=== PATIENT | female | born 1970 | race Caucasian/White ===

== ENCOUNTER → 2018-10-23 | Outpatient (CLI) | payer OTHER, SELFPAY ==
[2018-10-25 11:59] LABS: HPV APTIMA, High Risk Negative (Negative)
== END | disposition home or self-care (01) ==
LOC: LABSPEC 11:16
PROVIDERS: Visit Provider Obstetrics & Gynecology
DX: Z12.4 Encounter for screening for malignant neoplasm of cervix (principal)
CPT/HCPCS: 87624; 88175; G0145

== ENCOUNTER → 2018-11-07 12:07 | Outpatient (CLI) | payer OTHER, SELFPAY ==
--- NOTE | 2018-11-07 12:11 | BI_ITS ---
MAMMOGRAPHY - BILATERAL SCREENING REASON FOR EXAM: Female, 48 years old. Routine annual screening examination. PERTINENT HISTORY: Non-contributory. TECHNIQUE: Digital bilateral breast pito (3D mammographic acquisition) in the CC and MLO projections. 2-D mediolateral oblique (MLO) and craniocaudad (CC) views of both breasts were obtained. CAD: Full Field Digital Mammography with Computer Added Detection was performed. COMPARISON: No comparison mammograms available at this time. If any prior films become available, an addendum to this report can be generated. FINDINGS: Breast Composition: The breasts are heterogeneously dense, which may obscure small masses. There are no dominant masses or suspicious calcifications. Small bilateral benign appearing axillary lymph nodes. No other significant abnormalities are identified. BI/SCREEN MAMM (CAD) W/PITO BILAT IMPRESSION: Negative screening mammogram. Yearly followup mammogram recommended. (A) ASSESSMENT CATEGORY: BIRADS Category 2: Benign. A letter regarding these results will be sent to the patient by the facility within 30 days. Approximately 10% of breast cancers are not detected by mammography. A normal mammogram should not delay biopsy of a clinically suspicious abnormality. [id number] Electronically Signed: Mac Richards, at 13:52 EDT , Service support ,
== END ==
PROVIDERS: Family Provider Family Medicine; PCP Family Medicine; Referring Provider Obstetrics & Gynecology; Visit Provider Obstetrics & Gynecology
DX: Z12.31 Encounter for screening mammogram for malignant neoplasm of breast (principal)
CPT/HCPCS: 77063; 77067

== ENCOUNTER → 2019-08-14 11:44 | Outpatient (CLI) | payer OTHER, SELFPAY ==
[2019-08-14 15:18] LABS: Absolute Lymphocyte Count 1.12 X10^3/uL (0.83-4.51); Absolute Neutrophil Count 7.6 X10^3/uL (2.0-7.7); Basophil# 0.04 X10^3/uL; Basophil% 0.4 % (0-1); Eosinophil# 0.51 X10^3/uL; Eosinophils% 5.2 % (0-5); Hematocrit 43.7 % (37-47); Hemoglobin 14.1 g/dL (12.0-15.0); Lymphocyte # 1.12 X10^3/ul (4.0); Lymphocyte % 11.3 % (19-41); Mean Corp Hgb Conc 32.3 g/dL (32-36); Mean Corpuscular Hgb 30.6 pg (27.0-32.0); Mean Corpuscular Volume 94.8 fL (81-99); Mean Platelet Vol. 11.9 fl (6.2-12.0); Monocyte# 0.58 X10^3/uL; Monocyte% 5.9 % (0-10); NRBC Flagged by Analyzer 0 % (0-5); Neutrophil # 7.63 X10^3/uL (2.7-7.7); Neutrophil % 77.1 % (47-70); Platelet Count 288 K/mm3 (150-450); RBC Distribution Width CV 14.6 % (11.6-14.6); RBC Distribution Width SD 50.1 fl (35.1-43.9); Red Blood Count 4.61 M/mm3 (4.2-5.4); White Blood Count 9.9 K/mm3 (4.4-11.0)
[2019-08-14 15:33] LABS: AST(SGOT) 11 U/L (15-37); Alanine Aminotransfer ALT/SGPT 19 U/L (13-56); Albumin, Serum 3.7 g/dL (3.2-5.0); Alkaline Phosphatase 81 U/L (45-117); Anion Gap 7 (5-15); BUN 10 mg/dL (7-18); BUN/Creat Ratio 16.5 RATIO (10-20); Calcium,Total 8.8 mg/dL (8.5-10.1); Chloride 107 mmol/L (98-107); Cholesterol 197 mg/dL (200); EST Glomerular Filtration Rate 113 mL/min (>60); Est Glom Filt Rate - Afr Amer 136 mL/min (>60); Globulin 3.6 g/dL (2.2-4.2); Glucose 100 mg/dL (74-106); High Density Lipoprotein 41 mg/dL; Protein, Total 7.3 g/dL (6.4-8.2); Sodium Level 139 mmol/L (136-145); Triglycerides 122 mg/dL; Very Low Density Lipoprotein 24 mg/dL (5-40)
== END ==
PROVIDERS: PCP Family Medicine; Referring Provider Family Medicine; Visit Provider Family Medicine
DX: Z00.00 Encounter for general adult medical examination without abnormal findings (principal)
CPT/HCPCS: 36415; 80053; 80061; 85025

== ENCOUNTER → 2019-12-19 14:56 | Outpatient (CLI) | payer OTHER, SELFPAY ==
--- NOTE | 2019-12-19 15:05 | US_ITS ---
STUDY: THYROID ULTRASOUND REASON FOR EXAM: Female, 49 years old. Adenopathy. TECHNIQUE: Ultrasound evaluation of the thyroid was performed with real-time and static patino-scale imaging. COMPARISON: None. FINDINGS: RIGHT LOBE: The right lobe of the thyroid gland measures 4.8 x 1.8 x 1.5 cm. There is a homogeneous echotexture. Anechoic cyst of the superior right thyroid lobe measures 4 mm. Oval-shaped hypoechoic nodule of the inferior right thyroid lobe measures 4 mm. No microcalcifications. LEFT LOBE: The left lobe of the thyroid gland measures 4.8 x 1.7 x 1.6 cm. There is a homogeneous echotexture. Spongiform solid and cystic nodule of the posterior inferior left thyroid lobe measures 1 x 0.9 x 0.8 cm with well-defined margins, absence of microcalcifications and no significant vascular flow. ISTHMUS: The isthmus measures 2 millimeters. The regional lymph nodes are normal, including in the supraclavicular regions. No nazanin mass. US/Thyroid IMPRESSION: 1. Bilateral thyroid nodules measuring up to 1 cm on the left side (up to TIRADS 3). No specific imaging follow-up recommendations according to ACR guidelines. 2. Reactive appearing lymph nodes without dominant nazanin mass. Electronically Signed: Chandler Kerr MD ([place]) at 16:05 EDT , Service support ,
== END ==
PROVIDERS: PCP Family Medicine; Referring Provider Family Medicine; Visit Provider Family Medicine
DX: R22.1 Localized swelling, mass and lump, neck (principal)
CPT/HCPCS: 76536

== ENCOUNTER → 2020-03-23 14:40 | Outpatient (CLI) | payer OTHER, SELFPAY ==
--- NOTE | 2020-03-23 14:45 | RAD_ITS ---
STUDY: X-RAY CHEST REASON FOR EXAM: Female, 50 years old. Persistent cough s/p COVID 2 months ago TECHNIQUE: PA and lateral views of the chest. COMPARISON: None. FINDINGS: Patchy infiltrate in the right upper lobe. Mild increased markings at the left lung base. Calcified granuloma in the left upper lobe. There is no demonstrated pleural abnormality. Normal size heart. Normal mediastinum and merle. Normal visualized pulmonary arteries. Normal visualized aortic arch and descending thoracic aorta. There are diffuse degenerative changes of the visualized thoracic spine. Normal visualized ribs, clavicles, and shoulders. There is no demonstrated abnormality of the visualized soft tissue structures of the upper abdomen. RAD/Chest PA and Lateral IMPRESSION: Patchy infiltrate in the right midlung as well as mild increased markings at the left lung base Dextroscoliosis. Electronically Signed: Mac Richards MD at 15:00 EST , Service support ,
== END ==
PROVIDERS: PCP Family Medicine; Referring Provider Anesthesiology; Visit Provider Anesthesiology
DX: R05 Cough (principal)
CPT/HCPCS: 71046

== ENCOUNTER → 2020-03-31 14:49 | Outpatient (CLI) | payer OTHER, SELFPAY ==
--- NOTE | 2020-03-31 14:51 | CT_ITS ---
STUDY: CT CHEST WITHOUT CONTRAST REASON FOR EXAM: Female, 50 years old. Hx COVID 12/2019, cough. RADIATION DOSAGE (If Supplied By Facility): CTDIvol = ( 13.42 ) mGy, DLP = ( 469.44 ) mGycm TECHNIQUE: Transaxial imaging was performed without the administration of intravenous contrast material. Multiplanar coronal and sagittal images were reformatted. Individualized dose optimization techniques were used for this CT. COMPARISON: Comparison is made with prior chest radiograph dated 03/23/2020. FINDINGS: Small benign appearing bilateral axillary lymph nodes. There is an 8.7 mm x 7.8 mm calcified granuloma in the anterior left upper lobe. There is evidence of diffuse groundglass appearance in the peripheral lateral aspect of the right lower lung. Minimal changes are also seen in the left lower lobe. Mild increased markings are seen in the anterior aspect of the right middle lobe. Follow-up is recommended. There is no demonstrated pleural abnormality. Normal heart and pericardium. There are multiple small lymph nodes within the mediastinum, which are normal in size and morphology most compatible with reactive lymph hyperplasia. Normal hilar regions. Normal unenhanced pulmonary arteries. Normal aorta arch and descending thoracic aorta. There are degenerative changes of the thoracic spine. Small hiatal hernia. CT/Chest without Contrast IMPRESSION: Groundglass appearance in the right lower lobe with mild increased markings in the left lower lobe as well as in the anterior aspect of the right middle lobe. Follow-up is recommended. Electronically Signed: Mac Richards MD at 15:27 EST , Service support ,
[2020-03-31 16:07] LABS: Absolute Lymphocyte Count 0.39 X10^3/uL (0.83-4.51); Absolute Neutrophil Count 12.2 X10^3/uL (2.0-7.7); Basophil# 0.02 X10^3/uL; Basophil% 0.2 % (0-1); Eosinophil# 0.01 X10^3/uL; Eosinophils% 0.1 % (0-5); Hematocrit 39.1 % (37-47); Hemoglobin 12.5 g/dL (12.0-15.0); Lymphocyte # 0.39 X10^3/ul (4.0); Mean Corpuscular Hgb 28.5 pg (27.0-32.0); Mean Corpuscular Volume 89.3 fL (81-99); Mean Platelet Vol. 10.4 fl (6.2-12.0); Monocyte# 0.43 X10^3/uL; Monocyte% 3.3 % (0-10); NRBC Flagged by Analyzer 0 % (0-5); Neutrophil # 12.21 X10^3/uL (2.7-7.7); Neutrophil % 92.8 % (47-70); POSITIVE DIFFERENTIAL YES; Platelet Count 372 K/mm3 (150-450); RBC Distribution Width CV 13.2 % (11.6-14.6); RBC Distribution Width SD 43.7 fl (35.1-43.9); Red Blood Count 4.38 M/mm3 (4.2-5.4); White Blood Count 13.1 K/mm3 (4.4-11.0)
[2020-03-31 16:11] LABS: Differential Indicated SCAN CRITERIA MET
[2020-03-31 16:45] LABS: Differential Comment SCANNED; Erythrocyte Sedimentation Rate 48 mm/hr (0-30)
== END ==
PROVIDERS: PCP Family Medicine; Referring Provider Internal Medicine Pulmonary Disease; Visit Provider Internal Medicine Pulmonary Disease
DX: R05 Cough (principal); R06.00 Dyspnea, unspecified; Z86.16 Personal history of COVID-19
CPT/HCPCS: 36415; 71250; 85025; 85652; 86140

== ENCOUNTER → 2020-06-02 15:02 | Outpatient (CLI) | payer OTHER, SELFPAY ==
--- NOTE | 2020-06-02 15:30 | RAD_ITS ---
STUDY: X-RAY CHEST REASON FOR EXAM: Female, 50 years old. HX COVID TECHNIQUE: 2 views COMPARISON: Prior chest radiograph of 03/23/[address] exam of 03/31/2020. FINDINGS: The lungs are clear and expanded. Calcified granuloma left upper lobe. There is no demonstrated pleural abnormality. Prior infiltrates have resolved. Normal size heart. Normal mediastinum and merle. Normal visualized pulmonary arteries. Normal visualized aortic arch and descending thoracic aorta. Dextroscoliosis with straightening of the thoracic spine. Normal visualized ribs, clavicles, and shoulders. There is no demonstrated abnormality of the visualized soft tissue structures of the upper abdomen. RAD/Chest PA and Lateral IMPRESSION: No acute cardiopulmonary findings. Negative for consolidation, other infiltrates, atelectasis or pleural effusion. Prior infiltrates have resolved. Normal cardiac size. Stigmata of old granulomatous disease. Electronically Signed: Geetha Carbajal MD at 15:53 EDT , Service support ,
[2020-06-02 16:01] LABS: CRP 5.17 mg/L (0.0-3.0)
[2020-06-02 16:05] LABS: Erythrocyte Sedimentation Rate 6 mm/hr (0-30)
== END ==
PROVIDERS: PCP Family Medicine; Referring Provider Internal Medicine Pulmonary Disease; Visit Provider Internal Medicine Pulmonary Disease
DX: R05 Cough (principal); Z86.16 Personal history of COVID-19
CPT/HCPCS: 36415; 71046; 85652; 86140

== ENCOUNTER 2020-11-03 10:41 | Day surgery (SDC) | payer OTHER, SELFPAY ==
[2020-11-03] VITALS (7 sets, daily range): BP systolic 117–147; BP diastolic 58–74; PULSE 88–103; RESP 16; TEMP 36.2–37.7; O2SAT 94–99; BMI 38.3
--- NOTE | 2020-11-03 | BON_PTH ---
PATIENT: NEO PAZ LOC: [facility] [place] U#:[id number] AGE/SX: 50/F ROOM: RE11/03/[address]: Dr. Garrick Frausto MD : 1970 BED: DIS: 11/03/2020 SPEC #: [id number] RECD: 11/03/20 15:44 STATUS: CHI REQ #: [id number] BRUNO: 11/03/20 00:[address]: Garrick Frausto DEPT: SURGICAL PATHOLOGY RECD BY: Ascencion Pascual ENTERED: 11/04/20 10:49 SP TYPE: Bone OTHR DR: Dr. Nash Wooten, DO Tissues: A - Bone of hand, NOS B - Finger, NOS Procedures: Decalcification bone/plaque Surgery Specimen Level IV Surgery Specimen Level V HEADER OPERATION: Surgical preparation index fingertip with excisional debridement PRE-OP DIAGNOSIS: Nondisplaced transverse fracture of tuft of distal phalanx of index finger with overlying soft tissue swelling and laceration TISSUE SUBMITTED: A ? Right index finger soft tissue, B - Right index finger bone MICROSCOPIC DIAGNOSIS A. Soft tissue of right index finger, biopsy: Fibrinoid material with acute and chronic inflammation and granulation. B. Right index finger bone, biopsy: Reactive and reparative change. No evidence of acute osteomyelitis. AM:oralia 11/08/2020 MICROSCOPIC DESCRIPTION Slides are reviewed. GROSS DESCRIPTION A - Received in fixative is one container labeled with the patient's name and designated right index finger soft tissue. The specimen consists of multiple irregular fragments of light to dark garcia soft tissue that in aggregate measure 1.2 x 0.5 x 0.2 cm. The specimen is totally submitted in one cassette. B - Received in fixative is one container labeled with the patient's name and designated right index finger bone. The specimen consists of two garcia fragments of bone measuring in aggregate 0.6 x 0.3 x 0.2 cm. The specimen is totally submitted in one cassette after decalcification. / AM:oralia 11/04/20 TC:2 CPT: 88016, 79217, 50463
--- NOTE | 2020-11-03 11:15 | RAD_ITS ---
STUDY: X-RAY - RIGHT HAND, ATTENTION INDEX FINGER REASON FOR EXAM: Female, 50 years old. 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 COMPARISON: None. FINDINGS: Normal metacarpal head. Normal metacarpophalangeal joint. Normal proximal phalanx. Normal middle phalanx. Nondisplaced transverse fracture of the tuft of the distal phalanx of the index finger. Normal proximal interphalangeal joint. Normal distal interphalangeal joint. Overlying soft tissue laceration. RAD/Finger(s) Min 2 Views IMPRESSION: Nondisplaced transverse fracture of the tuft of the distal pharynx of the index finger with overlying soft tissue swelling and laceration. Electronically Signed: Mac Richards MD at 11:53 EDT , Service support ,
[2020-11-03] MEDS: Lactated Ringers 1,000 ML 100 ML IV (12:19)
[2020-11-03 13:05] LABS: Bedside Glucose 144 mg/dL (70-110)
[2020-11-03] MEDS: Cefazolin 2 GM in 0.9% Normal Saline 100 ML IV (13:38)
--- NOTE | 2020-11-03 13:38 | PCM.HP.BLA ---
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 She the nail plate over the nail bed with a subungual hematoma. I suspect a nail bed injury and probably a distal phalanx fracture. She will need an x-ray. She complains of severe pain in the right index finger tip. She can move her finger tip but range of motion is limited secondary to pain and swelling. It was cleansed at home and dressed. She was started on Doxycycline. She did not go to the ED because I was notified and instructed the patient to come to my office early this morning for evaluation in preparation for surgery. She denies fever. She complained of some bleeding when it first happened, but it was controlled with a compression dressing. 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 Has fatigue. Eyes - Denies cataracts and glaucoma. ENT - Denies nasal congestion and sore throat. Endocrine - Denies excessive thirst and urination. Skin - Denies suspicious lesions and skin cancer. Musculoskeletal - Denies joint pain, joint stiffness, and arthritis. Has weakness of muscles and joints and back pain. Has crush injury right index finger tip with subungual hematoma and suspected nail bed injury and distal phalanx fracture. Neuro - Denies headaches. Cardiovascular - Denies chest pain, fatigue, and shortness of breath with exertion. Psych - Denies anxiety and depression. Respiratory - Denies chronic cough and shortness of breath. Has sleep apnea. Gastrointestinal - Denies nausea, vomiting, diarrhea, and constipation. Hematologic - Denies abnormal bruising and bleeding. Genitourinary - Denies hematuria and urinary frequency. PHYSICAL EXAMINATION General - Alert and Oriented. HEENT - PERRL. EOMI. Neck - Supple and nontender. No cervical adenopathy. Lungs - Clear to auscultation. Heart - Regular rate and rhythm. Abdomen - Soft and nondistended. Extremities - FROM left upper extremity. No axillary adenopathy. Radial pulses are palpable. Patient is right hand dominant. On the right index finger tip is evidence of a crush injury with swelling and bruising of the volar skin. The nail plate is dislodged and from the eponychium. There is hematoma between the nail bed and nail plate. Able to extend her right index finger at the DIP joint. with no evidence of a mallet deformity. Can flex the finger at the DIP joint slightly as it is limited by pain and swelling. There is numbness at the tip of the right secondary to the crush injury. Neuro - CN II-XII grossly intact. Psych - Normal mood and affect. ASSESSMENT 1. 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 2. Subungual hematoma right index finger tip. 3. Nail bed injury right index finger tip. 4. Suspected open fracture distal phalanx right index finger. 5. 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 PLAN Patient has a severe crush injury right index finger tip while milking a cow. She was placed on Doxycycline which she will continue. Suspect a distal phalanx fracture, and she will need an x-ray to confirm this. Recommended to the patient to go to the operating room today on an urgent basis in order to try and salvage the finger tip. A delay in treatment would increase the risk of suboptimal healing and the development of osteomyelitis that may lead ultimately to a tip amputation. Also there is the risk on a middle or intermediate school principal basis of chronic pain in the finger tip secondary to the crush component of the injury. Can lead to fat necrosis that can scar down to the bone leading to pain when the finger is bumped and nerve damage leading to painful neuroma formation. The nail plate will be removed and then replaced at the end of the procedure. Would evacuate the subungual hematoma and repair the nail bed injury. Would evaluate the bone fracture as well. Any loose bony fragments will be excised and debrided and sent to Pathology for analysis to evaluate for osteomyelitis. If the nail bed injury is comminuted and there is a residual nail bed defect, then can consider a nail bed graft but not acutely. Would consider a nail bed graft in a delayed fashion because of the crushing nature of the injury that would increase the risk of a suboptimal outcome. Would then proceed with daily Silver dressing changes to help granulate over the exposed bone. If the distal phalanx fracture is comminuted or if there is a tuft fracture, it would be difficult to obtain stability from a K-wire fixation. The bony fragments would be debrided and excised to minimize painful bone cysts in the future that would necessitate surgical excision. If the fracture is more proximal, then an attempt at bony stabilization would be done with K-wire fixation. Soft tissue and bone that is removed will be sent to Pathology for analysis and to Microbiology for culture. A positive culture will necessitate antibiotic therapy. Surgery will be done under IV sedation and local digital metacarpal block and tourniquet control. Patient was informed of the risks and complications of the procedure including alternatives to surgery. These were discussed with the patient personally. Patient voices understanding and wishes to proceed. Some of the risks and complications were included in a form from the [employer] [place] [employer]. Some of the risks and complications that were discussed included but were not inclusive of failure to diagnose including symptom relief, pain, infection, numbness, stiffness, loss of digit, RSD (CRPS), need for further surgery, contracture, and wound healing problems. We discussed the current risks associated with COVID-19. While it is understood that there is a community spread of COVID-19, the risk of trey COVID-19 while at [facility] ([facility]) is very low; however, the risk cannot be completely mitigated because of the community spread of the disease. We discussed in detail the risk of exposure to and/or potential harm posed by the COVID-19 virus with having a surgery/procedure at this time versus the risk of delaying the surgery/procedure. It is not possible to know either the risk of delaying the surgery or procedure or chance of getting an infection with perfect accuracy, but a joint decision was made to proceed at this time with the scheduled surgery/procedure as indicated on the consent form. Patient was notified that we will need to comply with any screening or testing [facility] wishes to perform or that surgery may be delayed for any positive results. Procedure Criteria Procedure Type:?Elective COVID Risk Discussion: The surgeon/proceduralist and patient have discussed in detail the risk of exposure to and/or potential harm posed by the COVID-19 virus with having a surgery/procedure at this time versus the risk of delaying the surgery/procedure.? It is not possible to know either the risk of delaying the surgery or procedure or chance of getting an infection with perfect accuracy, but a joint decision was made between the patient and the surgeon/proceduralist to proceed at this time with the scheduled surgery/procedure as indicated on the consent form.
[2020-11-03] MEDS: Lidocaine 1% /Epi 1:100 (20ml) 20 ML Vial (14:00)
[2020-11-03] MEDS: Mupirocin Ointment 22gm Tube 1 APPLIC (14:42)
--- NOTE | 2020-11-03 14:47 | PCM.OPRPT ---
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 2. Subungual hematoma right index finger tip. 3. Nail bed injury right index finger tip. 4. Suspected open fracture distal phalanx right index finger. 5. 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 Post-Operative Diagnosis: 1. 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 2. Subungual hematoma right index finger tip. 3. Nail bed injury right index finger tip. 4. Open fracture distal phalanx right index finger. 5. 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 Surgery/Procedure Performed:: 1. Surgical preparation right index finger tip with excisional debridement crush injury. 2. Evacuation subungual hematoma right index finger tip. 3. Repair nail bed injury right index finger tip. 4. Partial ostectomy distal phalanx for osteomyelitis right index finger tip. 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 She the nail plate over the nail bed with a subungual hematoma. I suspect a nail bed injury and probably a distal phalanx fracture. She will need an x-ray. She complains of severe pain in the right index finger tip. She can move her finger tip but range of motion is limited secondary to pain and swelling. It was cleansed at home and dressed. She was started on Doxycycline. She did not go to the ED because I was notified and instructed the patient to come to my office early this morning for evaluation in preparation for surgery. She denies fever. She complained of some bleeding when it first happened, but it was controlled with a compression dressing. Patient was informed of the risks and complications of the procedure including alternatives to surgery. These were discussed with the patient personally. Patient voices understanding and wishes to proceed. Some of the risks and complications were included in a form from the [place] [employer]. Some of the risks and complications that were discussed included but were not inclusive of failure to diagnose including symptom relief, pain, infection, numbness, stiffness, loss of digit, RSD (CRPS), need for further surgery, contracture, and wound healing problems. Total tourniquet time - 30 minutes. Surgeon: Garrick Frausto vacuum cleaner mechanic: None Type of Anesthesia: Local MAC (xylocaine with epinephrine digital metacarpal block and IV sedation.) Specimen's removed: 1. Crush injury right index finger tip soft tissue to Pathology and Microbiology. 2. Crush injury right index finger tip distal phalanx bone to Pathology and Microbiology. Drains: None. Estimated Blood Loss (mL): 10. Description of Procedure: Patient was taken to OR in supine position and was given IV sedation. The right hand was prepped and draped in the usual fashion. SCD's were placed for DVT prophylaxis. Perioperative antibiotics were given intravenously. The right index finger was infiltrated with xylocaine and epinephrine digital metacarpal block. After waiting 5 minutes for the anesthetic to take effect, a digital tourniquet was applied. Under loupe magnification, I gently removed the loosened nail plate with an tissue elevator and placed it on the back table. I cleaned the soft tissue off the nail plate. The subungual hematoma was evacuated. I also used a curette to remove any residual hematoma adherent to the underlying nail bed. The nail bed was then evaluated. There was a jagged horizontal laceration involving the whole length of the nail bed. It didn't appear as though there was any nail bed tissue missing. I opened up the nail bed laceration and the distal phalanx was exposed thus making this an open fracture. The x-ray showed a distal tuft fracture with a small amount of separation and displacement. The fragments were too small for placement of a K-wire for fixation. If I leave the bony fragments alone, there may be some suboptimal healing that may lead to a painful bone cyst in the future. Depending on how symptomatic it is in the future may necessitate additional surgery to excise these residual bone cysts. Therefore, I went ahead and excised and debrided these small bone fragments which I will send to Pathology to evaluate for osteomyelitis and to Microbiology for culture. A positive culture will necessitate antibiotic therapy. The proximal bone had some jagged edges that was rasped to smooth out the bony edges. The wound was irrigated with saline. I then repaired the nail bed laceration with 6-0 Vicryl simple interrupted sutures. The volar skin of the finger tip was bruised with some blistering. I sharply debrided the blistered areas by opening up the blister. I removed the digital tourniquet after 30 minutes. Good bleeding was seen in the finger tip area and the underlying dermis of the volar skin was viable with good bleeding noted. I reapplied the nail plate on the repaired nail bed with 5-0 Nylon simple interrupted sutures. The soft tissue that was excised and debrided from the finger tip secondary to the crush injury was sent to Pathology for analysis and to Microbiology for culture. A positive culture will necessitate antibiotic therapy. Antibiotic ointment was applied to the finger tip followed by Xeroform gauze and 2x2 gauze followed by a 2 inch Diaz wrap. Patient tolerated the procedure well and was sent to PACU in satisfactory condition. Patient will be sent home on antibiotics and pain medication. She will keep her right hand elevated during the initial postoperative period. She will wear a plastic bag over the right hand when showering until the operative dressing is removed in the office. Patient will followup in a week for a wound check and for discussion of the Pathology report and for discussion of the Microbiology report. She will be discharged home on Doxycycline. Based on the culture results, antibiotic modification may be necessary. I will remove the sutures in 2 weeks. Grafts/Implants Used: None. Complications None. Admit VTE Documentation VTE Present on Admission: No VTE Mechan Device Prophylaxis: SCD's VTE Pharm Prophylaxis ordered?: No Addendum Addendum: Surgery Charges CPT - 90951 ICD-10 - S67.190A, Y92.79, S60.121A, S69.91xA, S62.630B 93216 S60.121A, S67.190A, Y92.79, S69.91xA, S62.630B 91995 S69.91xA, S67.190A, Y92.79, S60.121A, S62.630B 60718 S62.630B, S67.190A, Y92.79, S60.121A, S69.91xA
--- NOTE | 2020-11-03 14:52 | PCM.DC ---
Discharge Instructions Diet Discharge Diet: No restrictions Activity Discharge Activity: May Not Drive (if taking narcotics for pain.), May Shower (wear plastic bag over right hand when showering.) and - (elevate right hand. no heavy lifting.) May shower in (days): 1 (wear plastic bag over right hand when showering.) May resume sexual activity in: No Restrictions Weight Bearing Status: Weight bearing as tolerated Lifting Restrictions: 20 lbs. Keep extremity elevated above heart level: Right Arm Dressing / Incision Call your doctor if your incision/area has: Continuous Slow Oozing, Sudden Increased Bleeding, Increased Pain/ Swelling, Increased Redness, Foul Smelling Discharge and Swelling at the incision site Call your doctor if you observe: Fever of 101 or Higher, Coldness, Increased Pain, Shortness of breath, Chest pain, Calf discomfort and Uncontrolled pain Suture Line Care: - (after the operative dresssing is removed in the office, apply antibiotic ointment to suture line daily.) Change Dressing in: 1 week (will remove operative dressing in the office.) Cleanse incision/area with: - (wear plastic bag over right hand when showering.) Follow Up Care Please Follow Up With: Garrick Frausto MD When: one week. call [phone]. Test Results: Test results from this visit will be discussed in further detail at your follow-up appointment, if applicable. Discharge Plan Admission Primary Reason for Your Visit: right index finger tip crush injury Attending Provider: Garrick Frausto Primary Care Provider: Nash Wooten Discharge Orders/Prescriptions Prescriptions: New oxycodone-acetaminophen [Percocet] 5-325 mg tablet 1 tab PO Q4H PRN (Reason: pain (scale score 7-10)) 7 Days Qty: 40 RF: 0 doxycycline hyclate 100 mg capsule 100 mg PO BID Qty: 28 RF: 2 Continued dalfampridine [Ampyra] 10 mg tablet extended release 12 hr 10 mg PO Q12H RF: 0 baclofen 20 mg tablet 40 mg PO DAILY RF: 0 Ocrevus 30 mg/mL solution 30 mg .ROUTE .COMPLEX RF: 0 doxycycline hyclate 100 mg tablet 10 mg PO BID RF: 0 Referrals / Follow Up: Nash Wooten DO [Primary Care Provider] - Disposition Disposition (needs filled in before D/C Order can be placed): Home, Self Care
== END 2020-11-03 16:44 | disposition home or self-care (01) ==
LOC: SDC 10:45 → AC 10:46
PROVIDERS: PCP Family Medicine; Visit Provider Surgery
PROC: (CPT 11740; principal; 2020-11-03 13:15)
DX: S67.190A Crushing injury of right index finger, initial encounter (principal); S62.630B Displaced fracture of distal phalanx of right index finger, initial encounter for open fracture; S60.121A Contusion of right index finger with damage to nail, initial encounter; S61.310A Laceration without foreign body of right index finger with damage to nail, initial encounter; W23.0XXA Caught, crushed, jammed, or pinched between moving objects, initial encounter; Y92.79 Other farm location as the place of occurrence of the external cause; S69.91XA Unspecified injury of right wrist, hand and finger(s), initial encounter; M41.9 Scoliosis, unspecified; G62.9 Polyneuropathy, unspecified; G35 Multiple sclerosis; Z79.899 Other long term (current) drug therapy
CPT/HCPCS: 11740; 11760; 15004; 26236; 73140; 82962; 87070; 87075; 87077; 87102; 87186; 87205; 87206; 88304; 88305; 88307; 88311; J7120; J2405

== ENCOUNTER 2021-01-11 10:30 | Outpatient (RCR) | payer OTHER, SELFPAY ==
--- NOTE | 2020-12-23 17:15 | HP.OTEVAL_ITS ---
Patient's Visit Information NEO PAZ is a 50 year old F, referred to Occupational Therapy by KRYSTYNA Hanna, with a diagnosis of right IF crush injury. Date of Evaluation: 12/23/20 Occupational Therapist: Carolina Mederos, OSMIN/Anshu, CHT - Subjective This 50 year old female was seen for OT eval with dx of right IF crush injury 11/02/20. pt underwent sx to repair IF. pt arrives today with a band aid on her finger states this helps protect her finger tip as it is very sensitive. pt states she would like to return to using her right hand with ADLs and IADLs. - Pain right IF 3 Pain Intensity Range: 2, 4 - ROM MP: right 0/75 left 0/90 PIP: right 0/80 left 0/100 DIP: right 0/15 left 0/70 - Strength Administrative Associate: right 22# left 35# Lateral Pinch: right NT left 8# Tripod Pinch: right NT left 8# - Quick DASH-Disab of Arm,Shoulder& Hand Quick DASH Score: 34.0900 - Goals Goal:: pt will demo a increase in right legal transcriptionist strength by 15# or greater to return pt to her PLOF by d/c. pt will demo a increase in tripod and lateral pinch by 4# to increase ind. with fastening zippers etc. by d/c Goal:: pt will demo the ability to form a composite fist to hold small objects ind. by d/c Goal:: pt will demo understanding of desensitization by end of 2nd visit to decrease scar sensitivity and increase use by d.c - Rehabilitation General Assessment: pt arrives7 weeks s/p from right IF crush injury. pt demo with hyper sensitive amputated tip, limited ROM and strength increasing need of assistance with ADLs and IADLS. pt demo need for skilled OT services 1-2x week for 4 weeks to assist pt in return to her PLOF. today therapist ed. pt on sensory stimulation, desensitization and tendon glide exercise. pt demo understanding and agree to POC. Rehabilitation Potential: Good - Anticipated Interventions A/AAROM/PROM, Strengthening, Scar Care, Desensitization, Sensory Retraining, M odalities, Orthoses, Joint Protection/Energy Conservation, Fine Motor Coord/Kleber - Visit Plan Frequency: 1-2x /Week Duration: 6 Weeks TEXT: Thank you for the opportunity to evaluate your patient. For Medicare and Medicare HMO plans, please review the plan of care and approve it. It will need to be FAXED BACK to us at [phone] for Medicare purposes. Please let me know if there are questions or concerns regarding this plan of care. Physician Signature: Date:
--- NOTE | 2021-03-10 11:31 | HP.OTDCNRP_ITS ---
NEO PAZ was seen in my office for initial evaluation on 12/23/20. The following Plan of Care was established for this patient: Initial Frequency: 1-2x /Week Initial Duration: 6 Weeks Plan: cont POC Anticipated Interventions: A/AAROM/PROM, Strengthening, Scar Care, Desensit ization, Sensory Retraining, Modalities, Orthoses, Joint Protection/Energy Conservation, Fine Motor Coord/Kleber This patient was last seen in our office 01/11/21. Pertinent comments regarding their Occupational therapy will appear below: pt was seen for 5 OT sessions pt demo with good gains with ROM but continued to struggle with hyper sensitivity- pt ed. on progression of healing. PIP 0/98* DIP 0/54* pt has not scheduled further OT sessions and d/c at this time due to lapse in services. At this point I will be discontinuing this patient from occupational therapy. I would be happy to see this patient again in the future if found appropriate by the physician. Thank you! Carolina Mederos, OTR/L, CHT
== END 2021-01-11 19:00 | disposition home or self-care (01) ==
LOC: OT 10:30
PROVIDERS: PCP Family Medicine; Referring Provider Nurse Practitioner Family; Visit Provider Nurse Practitioner Family
DX: S67.190D Crushing injury of right index finger, subsequent encounter (principal); G35 Multiple sclerosis; S60.121D Contusion of right index finger with damage to nail, subsequent encounter; S69.91XD Unspecified injury of right wrist, hand and finger(s), subsequent encounter; S62.630D Displaced fracture of distal phalanx of right index finger, subsequent encounter for fracture with routine healing; Y92.79 Other farm location as the place of occurrence of the external cause
CPT/HCPCS: 97110; 97166; 97530

== ENCOUNTER → 2021-08-26 | Outpatient (CLI) | payer OTHER, SELFPAY ==
[2021-08-31 22:06] LABS: Clam <0.10 kU/L (Class 0); Codfish <0.10 kU/L (Class 0); Corn <0.10 kU/L (Class 0); Egg, White <0.10 kU/L (Class 0); Milk (Cow) <0.10 kU/L (Class 0); Peanut <0.10 kU/L (Class 0); SCALLOP <0.10 kU/L (Class 0); Shrimp <0.10 kU/L (Class 0); Soybean <0.10 kU/L (Class 0); Walnut, (Food) <0.10 kU/L (Class 0); Wheat <0.10 kU/L (Class 0)
[2021-09-01 17:08] LABS: SESAME SEED <0.10 kU/L (Class 0)
== END | disposition home or self-care (01) ==
PROVIDERS: PCP Family Medicine; Visit Provider Otolaryngology
DX: T78.40XA Allergy, unspecified, initial encounter (principal)
CPT/HCPCS: 36415; 86003

== ENCOUNTER → 2022-11-10 | Outpatient (CLI) | payer OTHER, SELFPAY ==
[2022-11-16 18:08] LABS: HPV APTIMA, High Risk Negative (Negative)
== END | disposition home or self-care (01) ==
LOC: LABSPEC 11:47
PROVIDERS: Referring Provider Advanced Practice Midwife; Visit Provider Advanced Practice Midwife
DX: Z12.4 Encounter for screening for malignant neoplasm of cervix (principal)
CPT/HCPCS: 87624; 88175; G0145

== ENCOUNTER → 2022-12-13 | Outpatient (CLI) | payer OTHER, SELFPAY ==
--- NOTE | 2022-12-13 13:09 | BI_ITS ---
MAMMOGRAPHY - BILATERAL SCREENING REASON FOR EXAM: Female, 52 years old. Routine annual screening examination. PERTINENT HISTORY: Non-contributory. TECHNIQUE: Digital bilateral breast pito (3D mammographic acquisition) in the CC and MLO projections. 2-D mediolateral oblique (MLO) and craniocaudad (CC) views of both breasts were obtained. CAD: Full Field Digital Mammography with Computer Added Detection was performed. COMPARISON: Comparison is made with prior study dated November 07, 2018. FINDINGS: Breast Composition: There are scattered areas of fibroglandular density. There are no dominant masses or suspicious calcifications. Stable small benign-appearing bilateral axillary lymph nodes. No other significant abnormalities are identified. There has been no significant change since the prior study. BI/SCRN MAMM (CAD)W/PITO BILAT IMPRESSION: Stable bilateral screening mammogram. Yearly follow-up mammogram recommended. (A) ASSESSMENT CATEGORY: BIRADS Category 2: Benign. A letter regarding these results will be sent to the patient by the facility within 30 days. Approximately 10% of breast cancers are not detected by mammography. A normal mammogram should not delay biopsy of a clinically suspicious abnormality. [id number] Electronically Signed: Mac Richards MD at 13:57 EDT ,
== END | disposition home or self-care (01) ==
LOC: OPBI 13:08
PROVIDERS: PCP Internal Medicine; Referring Provider Advanced Practice Midwife; Visit Provider Advanced Practice Midwife
DX: Z12.31 Encounter for screening mammogram for malignant neoplasm of breast (principal)
CPT/HCPCS: 77063; 77067

== ENCOUNTER 2023-11-07 10:08 | Day surgery (SDC) | payer OTHER, SELFPAY ==
[2023-11-07] VITALS (8 sets, daily range): BP systolic 102–140; BP diastolic 48–68; PULSE 66–88; RESP 16; TEMP 19.4–36.2; O2SAT 94–100; BMI 40.2
--- NOTE | 2023-11-07 10:29 | HP.PCM_ITS ---
HPI - General General Date of Admission: 11/07/23 Date of Service: 11/07/23 HPI Narrative NEO PAZ, is a 53 F who presents for screening colonoscopy. She is not have any abdominal pain. She denies any chest pain or shortness of breath. She has a past medical history of multiple sclerosis and is currently controlled on medical therapy. [facility] Medical History (Updated 11/05/23 @ 10:50 by Enedina Cabrera) Post-menopausal Wears glasses Alcohol use Diabetes Ambulates with cane Blood disorder Anemia High cholesterol Restless legs Back pain Migraine headache Gastric reflux Non-smoker Asthma Shortness of breath on exertion Leg cramps History of pain when walking History of edema Hx of dislocation of finger Family history of colon cancer in mother Accident on farm Open fracture of distal phalanx of right index finger Injury of nail bed of finger of right hand Contusion of right index finger with damage to nail Crushing injury of right index finger Scoliosis MS (multiple sclerosis) Neuropathy Back problem Allergies Home Medications ?Medication ?Instructions ?Recorded ?Last Taken ?Type baclofen 20 mg tablet 40 mg PO QHS 11/03/20 Unknown History dalfampridine 10 mg 10 mg PO Q12H 11/03/20 Unknown History tablet,extended release,12 hr (Ampyra) ocrelizumab 30 mg/mL intravenous 30 mg IV .[id number] 11/03/20 11/05/23 History solution (Ocrevus) rosuvastatin 10 mg tablet 10 mg PO QHS 11/10/22 Unknown History cholecalciferol (vitamin D3) 1,250 1,250 mcg PO 2XW 10/16/23 Unknown History mcg (50,000 unit) capsule multivitamin 1 tab PO DAILY 10/16/23 Unknown History fexofenadine 180 mg tablet 180 mg PO Q24H 11/05/23 Unknown History (Stephany Allergy) Allergy/AdvReac Type Severity Reaction Status Date / Time metformin AdvReac Diarrhea Verified 11/07/23 10:28 Family History (Updated 10/16/23 @ 10:46 by Opal Martinez) Mother Heart disease Colon cancer, Onset Age: 84 at 87yrs Surgical History (Updated 10/16/23 @ 10:46 by Opal Martinez) Hx of colonoscopy History of endometrial ablation No history of previous surgery Social History (Updated 10/16/23 @ 10:47 by Opal Martinez) adopted: No household members: spouse housing: house Smoking Status: Never smoker alcohol intake: never substance use type: does not use additional social history: Does Take Aspirin As Needed Does Take Ibuprofen As Needed Physical Exam Const alert General Appearance: cooperative Orientation / Consciousness: oriented to person HEENT hearing grossly normal bilaterally Head and Scalp: normal to inspection Face and Sinus: face symmetric Nose: external nose normal Mouth: oral and palatal mucosa normal Eyes conjunctivae normal General Eye: normal appearance of both eyes Neck full ROM General: normal visual inspection Lymph Lymphatic: no lymphadenopathy noted Chest inspection of chest normal and palpation of chest normal Chest: symmetrical chest wall rise Resp normal respiratory effort Effort and Inspection: able to speak in complete sentences Cardio regular rate GI non-distended Percussion: normal to percussion Rectal Exam: deferred Neuro Speech: speech normal Gait (Neuro): normal gait Assessment & Plan Assessment/Plan (1) Encounter for screening for malignant neoplasm of colon: PLAN: Plan She was explained alternatives, risk, benefits include not withstanding bleeding, infection, sepsis, perforation, need for emergent urgent . She will have an ASA of 3.
--- NOTE | 2023-11-07 10:43 | PCM.PRE.AN2 ---
ASA Classification* ASA Classification ASA Classification: 2 Assessment & Plan Anesthesia* Anesthesia Assessment Anesthesia Assessment: Discussed sedation and/or anesthesia options, risks, benefits, and alternatives with patient/parents/legal guardian/POA. Questions invited. The patient/parents/legal guardian/POA seems to understand and agrees to proceed with anesthesia plan. Reviewed the physical assessment, medical history, allergy history and patient home medications list prior to surgery/procedure/anesthetic and documented any changes. Performed airway and anesthesia risk assessments. Anesthesia Type Anesthesia Type: MAC Anesthesia Focused Assessment* Temperature: 97 F Pulse Rate: 88 Blood Pressure: 140/68 Respiratory Rate: 16 Pulse Ox: 100 Airway Assessment Mouth opens: >3 cm Mallampati Score: II Focused Labs Anesthesia Preop lab: CBC WBC 13.1 K/mm3 (4.4-11.0) H 03/31/20 15:30 RBC 4.38 M/mm3 (4.2-5.4) 03/31/20 15:30 Hgb 12.5 g/dL (12.0-15.0) 03/31/20 15:30 Hct 39.1 % (37-47) 03/31/20 15:30 Plt Count 372 K/mm3 (150-450) 03/31/20 15:30 CHEMISTRY Potassium 4.0 mmol/L (3.5-5.1) 08/14/19 11:54 Sodium 139 mmol/L (136-145) 08/14/19 11:54 BUN 10 mg/dL (7-18) 08/14/19 11:54 Creatinine 0.60 mg/dL (0.55-1.02) 08/14/19 11:54 Glucose 100 mg/dL (74-106) 08/14/19 11:54 POC Glucose 144 mg/dL (70-110) H 11/03/20 11:51 COAG Pre-Assessment Diagnosis/Proposed Procedure Planned Operative Procedure(s): CSCOPE OA Anesthesia History 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 When Was Last Pacemaker Check QUESTION #4 FULL TEXT: You/Your Family Experience fever (hyperthermia) with Anesthesia Last Oral Intake Last Oral intake: Last Oral Intake NPO since 08:00 11/07/23 10:30 Meds taken in AM with sips of water? 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 Female Yes 11/05/23 10:40 HX of Motion Sickness Yes 11/05/23 10:40 HX of N/V After Surgery No 11/05/23 10:40 Non-Smoker Yes 11/05/23 10:40 Duration of Surgery greater No 11/05/23 10:40 than 60 minutes Number of Risk Factors 3 11/05/23 10:40 PONV Score Moderate Risk 11/05/23 10:40 Height & Weight Height & Weight: Anesthesia: Height & Weight Height 5 ft 11/07/23 10:30 Weight: 93.44 kg 11/07/23 10:30 Body Mass Index (BMI) 40.2 11/07/23 10:30 Respiratory Assessment Respiratory Assessment - 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 Has anyone observed you stop No 11/05/23 10:40 breathing during sleep? STOP Results Positive 11/05/23 10:40 QUESTION #5 FULL TEXT : Do you snore loudly (louder than talking or can be heard through closed doors)? 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 Specify any problems Hx of Preganancy in last 3 No 11/05/23 10:40 Months Nurse Filling Out Transfusion DSCHRIBER 11/05/23 10:40 & Questions: Date: 11/05/23 11/05/23 10:40 Time: 10:42 11/05/23 10:40 Patient unable to answer at this time (ie. 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 truck driver: /Reproductive Hx- recycler forklift driver truck driver Hx Now No 11/05/23 10:40 Gestational Age (in weeks): EDC: Hx Hx Para Hx Section SAB No 11/05/23 10:40 Active Medications Active Medications: Current Medications Generic Name Dose Route Start Last Admin Trade Name Freq PRN Reason Stop Dose Admin Lactated Ringer's 1,000 mls @ 15 mls/hr 11/07/23 10:15 IV .Q48H LEONIDAS PFSH Medical History (Updated 11/05/23 @ 10:50 by Enedina Cabrera) Post-menopausal Wears glasses Alcohol use Diabetes Ambulates with cane Blood disorder Anemia High cholesterol Restless legs Back pain Migraine headache Gastric reflux Non-smoker Asthma Shortness of breath on exertion Leg cramps History of pain when walking History of edema Hx of dislocation of finger Family history of colon cancer in mother Accident on farm Open fracture of distal phalanx of right index finger Injury of nail bed of finger of right hand Contusion of right index finger with damage to nail Crushing injury of right index finger Scoliosis MS (multiple sclerosis) Neuropathy Back problem Allergies Home Medications ?Medication ?Instructions ?Recorded ?Last Taken ?Type baclofen 20 mg tablet 40 mg PO QHS 11/03/20 Unknown History dalfampridine 10 mg 10 mg PO Q12H 11/03/20 Unknown History tablet,extended release,12 hr (Ampyra) ocrelizumab 30 mg/mL intravenous 30 mg IV .[id number] 11/03/20 11/05/23 History solution (Ocrevus) rosuvastatin 10 mg tablet 10 mg PO QHS 11/10/22 Unknown History cholecalciferol (vitamin D3) 1,250 1,250 mcg PO 2XW 10/16/23 Unknown History mcg (50,000 unit) capsule multivitamin 1 tab PO DAILY 10/16/23 Unknown History fexofenadine 180 mg tablet 180 mg PO Q24H 11/05/23 Unknown History (Stephany Allergy) Allergy/AdvReac Type Severity Reaction Status Date / Time metformin AdvReac Diarrhea Verified 11/07/23 10:28 Family History (Updated 10/16/23 @ 10:46 by Opal Martinez) Mother Heart disease Colon cancer, Onset Age: 84 at 85yrs Surgical History (Updated 10/16/23 @ 10:46 by Opal Martinez) Hx of colonoscopy History of endometrial ablation No history of previous surgery Social History (Updated 10/16/23 @ 10:47 by Opal Martinez) adopted: No household members: spouse housing: house Smoking Status: Never smoker alcohol intake: never substance use type: does not use additional social history: Does Take Aspirin As Needed Does Take Ibuprofen As Needed Review of Systems (Anesthesia) ROS Narrative System reviewed and no additional complaints, except as documented.
--- NOTE | 2023-11-07 11:15 | COLBX_PTH ---
PATIENT: NEO PAZ LOC: EN U#:[id number] AGE/SX: 53/F ROOM: RE11/07/[address]: Dr. Jorge Jimenes DO : 1970 BED: DIS: 11/07/2023 SPEC #: [id number] RECD: 11/07/23 12:43 STATUS: CHI BLANCHARD #: [id number] BRUNO: 11/07/23 11:[address]: Jorge Jimenes DEPT: SURGICAL PATHOLOGY RECD BY: Janelle Hernandez ENTERED: 11/07/23 14:24 SP TYPE: COLON BX OTHR DR: Dr. Betzy Fuentes DO Tissues: Sigmoid colon biopsy Procedures: Surgery Specimen Level IV HEADER OPERATION: Colonoscopy and polypectomy PRE-OP DIAGNOSIS: Encounter of malignant neoplasm of colon TISSUE SUBMITTED: Sigmoid colon polyp MICROSCOPIC DIAGNOSIS Sigmoid colon polyp, biopsy: Fragments of tubular adenoma. AM.mr 11/08/2023 MICROSCOPIC DESCRIPTION Slides are reviewed. GROSS DESCRIPTION Received in fixative is one container labeled with the patient's name and designated Sigmoid colon polyp. The specimen consists of multiple irregular fragments of light garcia soft tissue that in aggregate measure 2.0 x 0.5 x 0.1 cm. The specimen is totally submitted in one cassette. 11/07/2023 TC:5 CPT:17535
--- NOTE | 2023-11-07 12:02 | OP.CCLET_ITS ---
11/07/2023 Betzy Fuentes [address] [place] [address] Re : Colonoscopy procedure for Vera Romero Dear Dr. Fuentes This procedure was performed on Tuesday, November 07, 2023. My impressions and recommendations are as follows: Impressions : - Diverticulosis in the recto-sigmoid colon and in the sigmoid colon. - One 5 mm polyp in the sigmoid colon, removed with a cold snare. Resected and retrieved. - The examination was otherwise normal on direct and retroflexion views. Recommendations : - Discharge patient to home. - Resume previous diet. - Continue present medications. - Await pathology results. - Repeat colonoscopy in 5 years for surveillance. My findings are described in the full procedure note, which is enclosed. If I can be of further assistance, please feel free to contact me at . Sincerely, Jorge Jimenes, 11/07/2023 12:01:58 PM This report has been signed electronically.
--- NOTE | 2023-11-07 12:02 | OP.COLON_ITS ---
Patient Name: Vera Romero Procedure Date: 11/07/2023 11:39 AM Date of : 1970 Age: 53 Procedure: Colonoscopy Indications: Screening for colorectal malignant neoplasm Providers: Jorge Jimenes DO Medicines: Monitored Anesthesia Care Patient Profile: This is a 53 year old female. Refer to note in patient chart for documentation of history and physical. Last Colonoscopy: 10 years ago. Complications: No immediate complications. Procedure: Pre-Anesthesia Assessment: - Prior to the procedure, a History and Physical was performed, and patient medications and allergies were reviewed. The patient is competent. The risks and benefits of the procedure and the sedation options and risks were discussed with the patient. All questions were answered and informed consent was obtained. Patient identification and proposed procedure were verified by the physician in the pre-procedure area. Mental Status Examination: alert and oriented. Airway Examination: normal oropharyngeal airway and neck mobility. Respiratory Examination: clear to auscultation. CV Examination: normal. Prophylactic Antibiotics: The patient does not require prophylactic antibiotics. Prior Anticoagulants: The patient has taken no anticoagulant or antiplatelet agents except for NSAID medication. ASA Grade Assessment: II - A patient with mild systemic disease. After reviewing the risks and benefits, the patient was deemed in satisfactory condition to undergo the procedure. The anesthesia plan was to use monitored anesthesia care (MAC). Immediately prior to administration of medications, the patient was re-assessed for adequacy to receive sedatives. The heart rate, respiratory rate, oxygen saturations, blood pressure, adequacy of pulmonary ventilation, and response to care were monitored throughout the procedure. The physical status of the patient was re-assessed after the procedure. After I obtained informed consent, the scope was passed under direct vision. Throughout the procedure, the patient's blood pressure, pulse, and oxygen saturations were monitored continuously. The colonoscope was introduced through the anus and advanced to the cecum, identified by appendiceal orifice and ileocecal valve. The colonoscopy was performed with ease. The patient tolerated the procedure well. The quality of the bowel preparation was adequate. The ileocecal valve, appendiceal orifice, and rectum were photographed. Scope In: 11:48:03 AM Scope Withdrawal Time 0 hours 6 minutes 36 seconds Scope Out: 11:58:29 AM Total Procedure Duration Time 0 hours 10 minutes 26 seconds Findings: The perianal and digital rectal examinations were normal. A few small-mouthed diverticula were found in the recto-sigmoid colon and sigmoid colon. A 5 mm polyp was found in the sigmoid colon. The polyp was sessile. The polyp was removed with a cold snare. Resection and retrieval were complete. Verification of patient identification for the specimen was done. Estimated blood loss was minimal. The exam was otherwise without abnormality on direct and retroflexion views. Impression: - Diverticulosis in the recto-sigmoid colon and in the sigmoid colon. - One 5 mm polyp in the sigmoid colon, removed with a cold snare. Resected and retrieved. - The examination was otherwise normal on direct and retroflexion views. Recommendation: - Discharge patient to home. - Resume previous diet. - Continue present medications. - Await pathology results. - Repeat colonoscopy in 5 years for surveillance. Procedure Code(s): --- Professional --- 80850, Colonoscopy, flexible; with removal of tumor(s), polyp(s), or other lesion(s) by snare technique CPT copyright 2021 [employer]. All rights reserved. The codes documented in this report are preliminary and upon rn appeals review may be revised to meet current compliance requirements. Jorge Jimenes DO 11/07/2023 12:01:58 PM This report has been signed electronically. Number of Addenda: 0 Note Initiated On: 11/07/2023 11:39 AM
--- NOTE | 2023-11-07 12:07 | PCM.POST.ANE ---
Anesthesia: Postop Eval I Current Vital Signs Temperature: 97.1 F Pulse Rate: 71 Blood Pressure: 105/48 Respiratory Rate: 16 Pulse Ox: 98 Oxygen Delivery Method: Room Air Assessment Airway patent: Yes Spontaneous unlabored respirations: Yes Mental status: Awake and Calm nausea: No Vomiting: No Anesthesia Complication: No Fluid Hydration Crystalloid volume administer (ml): 600 Total IV fluid infused: 600 Progress Note Anesthesia document: Postop Eval 1 completed: Yes
--- NOTE | 2023-11-07 13:05 | PCM.POSTANE2 ---
Anesthesia Postop Eval I Sum Postop Eval Completion status Anesthesia document: Postop Eval 1 completed: Yes Anesthesia Postop Eval I Summary Anesthesia Postop Eval I Summary: Anesthesia Postop Eval I: Assessment Summary Airway patent Yes 11/07/23 12:08 [email or web address] Spontaneous unlabored Yes 11/07/23 12:08 [email or web address] respirations Mental status Awake,Calm 11/07/23 12:08 [email or web address] nausea No 11/07/23 12:08 [email or web address] Vomiting No 11/07/23 12:08 [email or web address] Anesthesia Postop Eval I: Fluid Summary Crystalloid volume administer 600 11/07/23 12:08 [email or web address] (ml) Colloids volume administered ( ml) Blood Product volume administered (ml) Total IV fluid infused 600 11/07/23 12:08 [email or web address] Anesthesia Postop Eval I: Summary Notes Anesthesia Complication No 11/07/23 12:08 [email or web address] Anesthesia Complication Comment: Post-operative progress note Anesthesia: Postop Eval II Evaluation Mental status: Awake Pain Level: 0 nausea: No Vomiting: No
== END 2023-11-07 12:52 | disposition home or self-care (01) ==
LOC: EN 10:12 → AC 10:13
PROVIDERS: PCP Internal Medicine; Referring Provider Internal Medicine; Visit Provider Internal Medicine Gastroenterology
PROC: 0DJD8ZZ Inspection of Lower Intestinal Tract, Via Natural or Artificial Opening Endoscopic (ICD-10-PCS; CPT 45378; principal; 2023-11-07 11:10)
DX: Z12.11 Encounter for screening for malignant neoplasm of colon (principal); G35 Multiple sclerosis; E11.40 Type 2 diabetes mellitus with diabetic neuropathy, unspecified; K57.30 Diverticulosis of large intestine without perforation or abscess without bleeding; Z80.0 Family history of malignant neoplasm of digestive organs; E78.00 Pure hypercholesterolemia, unspecified; D12.5 Benign neoplasm of sigmoid colon
CPT/HCPCS: 45385; 88305; J7120; J2405

== ENCOUNTER → 2024-03-25 | Outpatient (CLI) | payer OTHER, SELFPAY ==
--- NOTE | 2024-03-25 13:06 | BI_ITS ---
PROCEDURE: SCRN MAMM (CAD)W/PITO BILAT REASON FOR EXAM: F, Age 54 y/o, presents for an annual screening mammogram. TECHNIQUE: Bilateral screening digital breast tomosynthesis with 2D and 3D images. Computer aided detection. COMPARISON: No priors available . FINDINGS: There are scattered areas of fibroglandular density. There is a focal asymmetry in upper outer left breast at middle depth. There are no suspicious masses, grouped calcifications or architectural distortions in the right breast. BI/SCRN MAMM (CAD)W/PITO BILAT IMPRESSION: The focal asymmetry in the upper outer left breast at middle depth requires fur ther evaluation. Recommend diagnostic mammogram and ultrasound of the left breast. BI-RADS 0: INCOMPLETE - NEED ADDITIONAL IMAGING EVALUATION. Follow-up code: Additional Views obtained/call backs The patient will be notified of the results by letter. Reading Location: [id number]
== END | disposition home or self-care (01) ==
LOC: OPBI 13:05
PROVIDERS: PCP Internal Medicine; Referring Provider Internal Medicine; Visit Provider Internal Medicine
DX: Z12.31 Encounter for screening mammogram for malignant neoplasm of breast (principal)
CPT/HCPCS: 77063; 77067

== ENCOUNTER → 2024-07-30 | Outpatient (CLI) | payer OTHER, SELFPAY ==
--- NOTE | 2024-07-30 07:12 | US_ITS ---
PROCEDURE: ABD LIMITED W/ ELASTOGRAPHY REASON FOR EXAM: FATTY LIVER COMPARISON: None. TECHNIQUE: Right upper quadrant abdominal ultrasound. [facility] ElastQ Imaging shear wave elastography for non-invasive assessment of liver tissue stiffness. [facility] EPIQ Elite. FINDINGS: LIVER: Size: Enlarged (hepatomegaly) Length: 18.9 cm Echotexture: Diffusely echogenic suggesting fatty infiltration Contour: Normal Lesions: None identified Elastography: EQI Med: 6.7 kPa EQI Med Tray: 1.15 m/s IQR/Med: 19.6 %* GALLBLADDER: Solitary gallstone. It measures 3.5 cm x 2.9 cm 2 cm. COMMON BILE DUCT: Dilated measuring up to 5.2 mm . PANCREAS: Normal Visualized portions of the right kidney are unremarkable. No right upper quadrant ascites. US/ABD Limited w/ Elastography IMPRESSION: MILD HEPATIC FIBROSIS Hepatomegaly and diffuse fatty infiltration of the liver. Solitary gallstone. Reference Values: SRU <1.37 m/s (5.7kPa): No to mild fibrosis 1.37 m/s - 2.2 m/s: Moderate to severe fibrosis >2.2 m/s (15kPa): Significant fibrosis / cirrhosis METAVIR Score F2 or higher: 1.34 m/s (5.7kPa) F3 or higher: 1.55 m/s (7.3kPa) F4: 1.80 m/s (10kPa) * If the IQR/Med is >30%, the variance in the measurements is a large and the a ccuracy of the measurement may be in question. Reading Location: [place] [id number]
--- NOTE | 2024-07-30 07:15 | CT_ITS ---
PROCEDURE: CHEST WITH CONTRAST 07/30/2024 07/30/2024 REASON FOR EXAM: LUNG NODULE, SOLITARY TECHNIQUE: Axial chest CT with intravenous contrast. Coronal and Sagittal reconstruction series were provided. CONTRAST: Isovue-300 VOLUME: 100 mL One or more dose reduction techniques were used (e.g., Automated exposure control, adjustment of the mA and/or kV according to patient size, use of iterative reconstruction technique). RADIATION DOSE SUMMARY: CTDlvol: 12.6 mGy DLP: 578.51 mGycm COMPARISON: Prior study dated March 31, 2020. FINDINGS: Hardware: None Lymph nodes: No suspicious lymph nodes are seen. Heart and Vasculature: The heart is not enlarged. No coronary artery calcification is seen. Lungs and Airways: Stable 7.7 mm calcified granuloma in the left upper lobe. Pleura: No pleural effusion. Upper Abdomen: Unremarkable. Bones: Degenerative changes of the thoracic spine. Dextroconvex scoliosis. CT/Chest WITH Contrast IMPRESSION: Coronary artery calcification (CAC) is is absent Stable calcified granuloma in the left upper lobe. Reading Location: [place] [id number]
--- OUTSIDE RECORDS SUMMARY | 2024-07-30 07:22 | XMS RPT_ITS | CCD ---
Author Organization [facility] Care Team Providers Care Mineralogy Teacher Name Role Phone DR NEFTALI WOOTEN DO A Primary Care Physician [phone] Betzy Olivo DO Unavailable [phone] Nikolas Gilbert Unavailable [phone] Timur DIAZ Kayellavon Unavailable Unavailable Friend, Dr. Patel Unavailable Betzy Olivo DO Attending Unavailable Betzy Olivo DO Consulting Unavailable VICKIE BALBUENA, DR LINDSAY A Primary Care Physician [phone] Randi DIAZ Kaleigh Unavailable Unavailable Unavailable Unavailable Dr. Neftali Wooten Referring Provider TETO Landaverde Attending Provider BROOKS BIGNHAM, DR BRUMFIELD Attending Unav ailable VICKIE BALBUENA, DR NEFTALI Villegas Primary Care Unavailab jean carlos GUY MD, DR BRUMFIELD Attending Unav ailable VICKIE BALBUENA, DR NEFTALI Villegas Primary Care Unavailab jean carlos WOOTEN DO, DR NEFTALI Villegas Primary Care Unavailab jean carlos GUY MD, DR BRUMFIELD Attending Unav ailable VICKIEERIK BALBUENA, DR NEFTALI Villegas Primary Care Unavailab le PALLAVI , DR ORANTES Attending Unavailab jean carlos GUY MD, DR BRUMFIELD Attending Unav ailable VICKIE BALBUENA, DR NEFTALI Villegas Primary Care Unavailab jean carlos NAVARRETE APRN-SHIP WORKER, KUSHAL Miller Attending Unavailab le VICKIE , DR NEFTALI Villegas Primary Care Unavailab le VICKIEERIK BALBUENA, DR NEFTALI Villegas Primary Care Unavailab le MÉNDEZ CHIN STRAP CUTTER-DRY WALL INSTALLATIONS MECHANIC, JOHN Mcginnis Attending Unavailab jean carlos GUY MD, DR BRUMFIELD Attending Unav ailable VICKIEDR NEFTALI VALENCIA DO Primary Care Unavailab le Unavailable Primary Care Provider Unavailabl e PALLAVI, BETZY K Referring Unavailable Pallavi, Betzy Primary Care Unavailable Pallavi, Betzy Referring Unavailable Pallavi, Betzy Attending Unavailable Pallavi, Betzy Primary Care Unavailable Opal Martinez Attending Unavailable Pallavi, Betzy Primary Care Unavailable Pallavi, Betzy Referring Unavailable Friend, Jorge Attending Unavailable Friend, Jorge Consulting Unavailable Pallavi, Betzy Primary Care Unavailable Pallavi, Betzy Referring Unavailable Friend, Jorge Attending Unavailable Pallavi, Betzy Primary Care Unavailable Pallavi, Betzy Referring Unavailable Pallavi, Betzy Attending Unavailable Pallavi, Betzy Primary Care Unavailable Pallavi, Betzy Referring Unavailable Pallavi, Betzy Attending Unavailable Allergies Allergy Classification Reported Allergen(s) Allergy Type Date of Onset Reaction(s) Facility (12 sources) metFORMIN Drug Allergy Diarrhea [facility]; [facility] Work Phone: (1 source) ALLERGIES NOT ON FILE; Translations: [ALLERGIES NOT ON FILE] Propensity to adverse reactions (disorder) [facility] Repository (1 source) metFORMIN Drug Allergy 4 [facility] Repository Medications Current Medications Medication Drug Class(es) Dates Sig (Normalized) Sig (Original) omeprazole 40 mg delayed release oral capsule (13 sources) Proton Pump Inhibitor Start: 11-10-2022 Omeprazole Active MG PO November 10, 2022 12:00am Start: 10-09-2022 take 1 capsule by [facility] once daily omeprazole 40 mg oral capsule,delayed release (enteric coated) 1 (one) capsule qd for 0 days Quantity: 30 {Capsule} Refills: 6 Ordered: 09-Oct-2022 Betzy Olivo DO, DO, Kathleen Start : 09-Oct-2022 Active Start: 09-29-2022 take 1 capsule by mo ut once daily omeprazole 40 mg oral capsule,delayed release (enteric coated) 1 (one) capsule qd for 0 days Quantity: 30 {Capsule} Refills: 0 Ordered: 29-Sep-2022 Betzy Olivo DO, DO, Kathleen Start : 29-Sep-2022 Active Start: 05-18-2022 take 1 capsule by [facility] once daily omeprazole 40 mg oral capsule,delayed release (enteric coated) 1 (one) capsule qd for 0 days Quantity: 30 {Capsule} Refills: 3 Ordered: 18-May-2022 Windy Ding CMA Start : 18-May-2022 Active Ozempic 1 mg/dose (4 mg/3 mL) subcutaneous pen injector (1 source) Start: 12-18-2022 inject 1 mL by subcutaneous injection every week Ozempic 1 mg/dose (4 mg/3 mL) subcutaneous pen injector 1 (one) mL q week for 0 days Quantity: 3 {Milliliter} Refills: 3 Ordered: 18-Dec-2022 Betzy Olivo DO, DO, Kathleen Start : 18-Dec-2022 Active rosuvastatin calcium 10 mg oral tablet (9 sources) HMG-CoA Reductase Inhibitor Start: 11-10-2022 Rosuvastatin Active MG PO November 10, 2022 12:00am Start: 10-09-2022 take 1 tablet by twyla once daily at bedtime rosuvastatin 10 mg oral tablet 1 (one) tablet qhs for 0 days Quantity: 30 {Tablet} Refills: 6 Ordered: 09-Oct-2022 Betzy Olivo DO, DO, Kathleen Start : 09-Oct-2022 Active Start: 09-29-2022 take 1 tablet by twyla th once daily at bedtime rosuvastatin 10 mg oral tablet 1 (one) tablet qhs for 0 days Quantity: 30 {Tablet} Refills: 0 Ordered: 29-Sep-2022 Betzy Olivo DO, DO, Kathleen Start : 29-Sep-2022 Active Start: 05-25-2022 take 1 tablet by twyla once daily at bedtime rosuvastatin 10 mg oral tablet 1 (one) tablet qhs for 0 days Quantity: 30 {Tablet} Refills: 3 Ordered: 25-May-2022 Betzy Olivo DO, DO, Kathleen Start : 25-May-2022 Active Semaglutide (1 source) Start: 11-10-2022 Semaglutide (O zempic) 0.25 mg or 0.5 mg (2 mg/3 mL) pen injector Active MG SC November 10, 2022 12:00am Completed/Discontinued Medications Medication Drug Class(es) Dates Sig (Normalized) Sig (Original) acetaminophen 325 mg / oxyCODONE hydrochloride 5 mg oral tablet (4 sources) Opioid Agonist Start: 11-10-2020 End: 11-17-2020 take 1 tablet by mouth four times daily Oxycodone-Acetamino phen (Percocet) 5-325 mg tablet Discontinued 1 TABLET PO 4 TIMES DAILY 15 09November 10, 2020 November 17, 2020 12:01am Start: 11-03-2020 End: 11-12-2020 take 1 tablet by mouth every four hours Oxycodone-Acetaminophen (Percocet) 5-325 mg tablet Discontinued 1 TABLET PO Q4H 40 November 03, 2020 November 12, 2020 1:06pm 40 tabs (forty) baclofen 20 mg oral tablet (14 sources) gamma-Aminobutyric Acid-ergic Agonist Start: 05-18-2022 take 1 tablet by mouth twice daily baclofen 20 mg oral tablet 1 (one) tablet Two times a day for 0 days Quantity: 90 {Tablet} Refills: 0 Ordered: 18-May-2022 Betzy Olivo DO, DO, Kathleen Start : 18-May-2022 Active Start: 11-03-2020 take 40 mg by mouth once daily Baclofen Active 40 MG PO DAILY November 03, 2020 12:00am 12 hr dalfampridine 10 mg extended release oral tablet (14 sources) Potassium Channel Mable Start: 05-18-2022 take 1 tablet by mouth twice daily Ampyra 10 mg oral Tablet, Extended Release 12 hr 1 (one) tablet Twice daily for 0 days Quantity: 90 {Tablet} Refills: 0 Ordered: 18-May-2022 Betzy Olivo DO, DO, Kathleen Start : 18-May-2022 Active Start: 11-03-2020 take 1 tablet by twyla th every twelve hours Dalfampridine (Ampyra) 10 mg tablet extended release 12 hr Active 10 MG PO Q12H November 03, 2020 12:00am doxycycline hyclate 100 mg oral tablet (4 sources) Tetracycline-class Drug Start: 11-03-2020 End: 01-20-2021 take 100 mg by mouth twice daily Doxycycline Hyclate Discontinued 100 MG PO TWICE A DAY November 03, 2020 12:00am January 20, 2021 3:13pm Continue this Doxycylcine script after the preoperative script has been completed. Start: 11-03-2020 End: 11-25-2020 take 10 mg by mouth twice daily Doxycycline Hyclate Discontinued 10 MG PO TWICE A DAY November 03, 2020 12:00am November 25, 2020 2:49pm metoprolol tartrate 25 mg oral tablet (12 sources) beta-Adrenergic Mable Start: 05-18-2022 metopr olol tartrate 25 mg oral tablet 1 (one) tablet x1 one hour prior to testing for 0 days Quantity: 1 {Tablet} Refills: 0 Ordered: 18-May-2022 Timur DIAZ Phillsalinas Start : 18-May-2022 Active 10 ml ocrelizumab 30 mg/ml injection (14 sources) Start: 05-18-2022 Ocrevus 30 mg/ mL intravenous solution 1 (one) mL 60 mg every 6 months for 0 days Quantity: 1 {Milliliter} Refills: 0 Ordered: 18-May-2022 Betzy Olivo DO, DO, Kathleen Start : 18-May-2022 Active Start: 11-03-2020 Ocrelizumab (O crevus) 30 mg/mL solution Active 30 MG .ROUTE .COMPLEX November 03, 2020 12:00am 30 mg; every 5 months Ozempic 0.25 mg or 0.5 mg (2 mg/3 mL) subcutaneous pen injector (3 sources) Start: 10-09-2022 inject 0.25 mg by subcutaneous injection every week, then inject 0.5 mg by subcutaneous injection every week Ozempic 0.25 mg or 0.5 mg (2 mg/3 mL) subcutaneous pen injector 0.25 mg qweek for 4weeks then 0.5mg qweek for 0 days Quantity: 3 {Milliliter} Refills: 3 Ordered: 09-Oct-2022 Betzy Olivo DO, DO, Kathleen Start : 09-Oct-2022 Active Problems Active Problems Problem Classification Problem Date Documented Da te Episodic/Chronic Allergic reactions (2 sources) Allergic condition; Translations: [Allergy, unspecified, initial encounter] 11-03-2020 Episodic Anxiety disorders (20 sources) Anxiety; Translations: [Anxiety] 05-18-2022 Chronic Comment on above: stable Coagulation and hemorrhagic disorders (20 sources) Factor V Leiden mutation; Translations: [Factor V Leiden] 05-18-2022 Chronic Comment on above: never had a clot in lifetime- mother did and she was factor V-- She is i variatnt detected for factor V- its in the F5 gene and the prothrrombin [id number] ( she has not been on any anticoagulation and she has never had a clot)rec baby asa daily with wt /obesity / aging- if travel full str asa /support stockijgs and walking breaks Crushing injury or internal injury (2 sources) Crush injury of right index finger; Translations: [Crushing injury of right index finger, initial encounter] 11-03-2020 Episodic Diabetes mellitus without complication (8 sources) Type 2 diabetes mellitus; Translations: [Type II diabetes mellitus, well controlled] 10-09-2022 Chronic Comment on above: new dx 09/10pt states was on metfomin in past and didnt tolerate it from horrrible diarrhea Diabetes mellitus without complication (20 sources) Abnormal glucose tolerance test; Translations: [Abnormal glucose tolerance test (Renamed from Abnormal glucose tolerance test (GTT))] 05-18-2022 Episodic Disorders of lipid metabolism (20 sources) Hyperlipidemia; Translations: [Hyperlipidemia] Onset: 5 05-25-2022 Chronic E Codes: Place of occurrence (2 sources) Effect of exposure to external cause; Translations: [Other farm location as the place of occurrence of the external cause] 11-03-2020 Episodic Esophageal disorders (20 sources) Gastroesophageal reflux disease; Translations: [GERD (gastroesophageal reflux disease)] 05-18-2022 Chronic Comment on above: resistant to rx-- lo ng standing- and getting gum disease from acid Fracture of upper limb (2 sources) Open fracture of distal phalanx of finger; Translations: [Displaced fracture of distal phalanx of right index finger, initial encounter for open fracture] 11-03-2020 Episodic Malaise and fatigue (20 sources) Fatigue; Translations: [Fatigue] 05-18-2022 Episodic Multiple sclerosis (20 sources) Multiple sclerosis; Translations: [Multiple sclerosis] 05-18-2022 Chronic Other acquired deformities (14 sources) Scoliosis deformity of spine; Translations: [Scoliosis, unspecified] 05-18-2022 Chronic Other gastrointestinal disorders (12 sources) Heartburn 05-18-2022 Episodic Other injuries and conditions due to external causes (2 sources) Injury of nail bed of finger; Translations: [Unspecified injury of right wrist, hand and finger(s), initial encounter] 11-03-2020 Episodic Other liver diseases (1 source) Fatty (change of) liver, not elsewhere classified; Translations: [Fatty (change of) liver, not elsewhere classified] Onset: 5 Chronic Other lower respiratory disease (1 source) Solitary pulmonary nodule; Translations: [Solitary pulmonary nodule] Onset: 5 Episodic Other nervous system disorders (2 sources) Neuropathy; Translations: [Polyneuropathy, unspecified] 11-03-2020 Chronic Other nervous system disorders (2 sources) Acute postoperative pain; Translations: [Other acute postprocedural pain] 11-03-2020 Episodic Other nutritional; endocrine; and metabolic disorders (20 sources) Body mass index 40+ - severely obese; Translations: [BMI 40.0-44.9, adult] 05-18-2022 Chronic Residual codes; unclassified (20 sources) FH: Cardiovascular disease; Translations: [Family history of cardiovascular disease] 05-18-2022 Episodic Comment on above: mom cad - will do ca rdiac ca++ score Residual codes; unclassified (20 sources) Non-smoker; Translations: [Non-smoker] 05-18-2022 Episodic Residual codes; unclassified (20 sources) Disturbance in sleep behavior; Translations: [Sleep disturbance] 05-18-2022 Episodic Comment on above: failed melatonin- di arrhearecommend trying tylenol pm first before rx - take 8-9 hr prior to needing to be awake Spondylosis; intervertebral disc disorders; other back problems (2 sources) Back problem; Translations: [Dorsopathy, unspecified] 11-03-2020 Episodic Superficial injury; contusion (2 sources) Contusion of right index finger; Translations: [Contusion of right index finger with damage to nail, initial encounter] 11-03-2020 Episodic Unclassified (2 sources) No history of procedure; Translations: [No history of previous surgery] 11-03-2020 Unclassified (20 sources) Past or Other Problems Problem Classification Problem Date Documented Da te Episodic/Chronic Other screening for suspected conditions (not mental disorders or infectious disease) (20 sources) Patient encounter status; Translations: [Colon cancer screening (Renamed from Encounter for screening for malignant neoplasm of colon)] Onset: 11-13-2023 05-25-2022 Episodic Unclassified (12 sources) Fatgue/Weakness 05-18-2022 Unclassified (12 sources) MS Disease 05-18-2022 Unclassified (12 sources) Pre diabetes 05-18-2022 Unclassified (12 sources) Pregnancies (); Translations: [Pregnancies ()] 05-18-2022 Comment on above: 2. Unclassified (12 sources) Sleep Troubles 05-18-2022 Results Test Name Value Interpretation Reference Range Facility CT CARDIAC SCORING WO IV CON TRASTon 06-18-2024 CT CARDIAC SCORING WO IV CONTRAST Interpreted By: Oscar Thompson, STUDY: CT CARDIAC SCORING WO IV CONTRAST; 06/18/2024 3:50 pm INDICATION: Signs/Symptoms:HYPERL IPIDEMIA. COMPARISON: None. ACCESSION NUMBER(S): [id number] ORDERING CLINICIAN: BETZY OLIVO TECHNIQUE: Using prospective ECG gating, limited CT scan of the chest for evaluation of coronary arteries was performed without intravenous contrast. Coronary calcium scoring was performed according to the method of Agatston. FINDINGS: The score and distribution of calcium in the coronary arteries is as follows: LM: 0. LAD: 0. LCx: 4.4. RCA: 0. Total: 4.4. The visualized segments of the lungs are normally expanded. Mild patchy infiltrates/atelectas is at the left lung base. 9 mm nodular density overlying the left upper lung on orthopedic tech view not included on CT imaging. The visualized mid/lower ascending thoracic aorta measures 3.2 cm in diameter. The heart is borderline enlarged. No significant pericardial effusion is present. No gross evidence of mediastinal or hilar lymphadenopathy is identified. Small hiatal hernia. Fatty liver. Spleen borderline enlarged up to 12.8 cm AP dimension. Prominent scoliotic curvature visualized spine. IMPRESSION: 1. Coronary artery calcium score of 4.4*. 2. 9 mm nodular density overlying the left upper lung on orthopedic tech view not included on CT imaging. Consider dedicated complete CT chest for further assessment. 3. Mild patchy infiltrate/atelectasi s at the left lung base. 4. Fatty liver. Correlate with LFTs. Borderline splenomegaly. 5. Additional findings as above. *Coronary artery calcium scoring may be helpful in predicting the risk for future coronary heart disease events. According to the [place] [employer] Clinical Expert Consensus Task Force, such testing provides important prognostic information in patients with more than one coronary heart disease risk factor. The coronary artery calcium score correlates with the annual risk of a non-fatal myocardial infarction or coronary heart disease . Coronary artery score Annual Risk 0-99 0.4% 100-399 1.3% >400 2.4% These three breakpoints correspond to lower, intermediate and high risk states for future coronary events. Such information should be used, along with appropriate clinical judgment, to make decisions regarding the intensity of risk factor management strategies to treat blood lipids and to modify other non-lipid coronary risk factors. Reference: Siena P et al. Circulation. 2007; 115:402-426 MACRO: None Signed by: Oscar Thompson 06/19/2024 4:47 PM Dictation workstation: [id number] [facility] .Auto Diffon 04-09-2024 Basophil, Absolute 0.0 10 3/mcL Normal 0.0-0.2 [facility] Comment on above: Performed By: #### G FR, CMP, VIDH, CBC, [id number], ANEU, ADIFF #### [address] [address] #### HEPAC, IGG #### [address] [address] Basophils/100 WBC (Bld) 0.4 % Normal 0.0-2.5 [facility] Comment on above: Performed By: #### G FR, CMP, VIDH, CBC, [id number], ANEU, ADIFF #### [address] [address] #### HEPAC, IGG #### [address] [address] Eosinophil, Absolute 0.3 10 3/mcL Normal 0.0-0.7 [facility] Comment on above: Performed By: #### G FR, CMP, VIDH, CBC, 476906, ANEU, ADIFF #### [address] [address] #### HEPAC, IGG #### [address] [address] Eosinophils/100 WBC (Bld) 2.7 % Normal 0.0-7.0 [facility] Comment on above: Performed By: #### G FR, CMP, VIDH, CBC, 030518, ANEU, ADIFF #### [place] [address] #### HEPAC, IGG #### [address] [address] Lymphocyte, Absolute 1.6 10 3/mcL Normal 0.9-4.3 [facility] Comment on above: Performed By: #### G FR, CMP, VIDH, CBC, 465854, ANEU, ADIFF #### [place] [address] #### HEPAC, IGG #### [address] [address] Lymphocytes/100 WBC (Bld) 12.4 % Low 20.0-40.0 [facility] Comment on above: Performed By: #### G FR, CMP, VIDH, CBC, 321417, ANEU, ADIFF #### [place] [address] #### HEPAC, IGG #### [address] [address] Monocyte, Absolute 0.7 10 3/mcL Normal 0.1-1.4 [facility] Comment on above: Performed By: #### G FR, CMP, VIDH, CBC, 472538, ANEU, ADIFF #### [place] [address] #### HEPAC, IGG #### [address] [address] Monocytes/100 WBC (Bld) 5.9 % Normal 2.0-13.0 [facility] Comment on above: Performed By: #### G FR, CMP, VIDH, CBC, 794806, ANEU, ADIFF #### [address] [address] #### HEPAC, IGG #### [address] [address] Neutrophils/100 WBC (Bld) 78.6 % High 50.0-75.0 [facility] Comment on above: Performed By: #### G FR, CMP, VIDH, CBC, 998243, ANEU, ADIFF #### [address] [address] #### HEPAC, IGG #### [address] [address] .NEUABSon 04-09-2024 Neutrophil, Absolute 9.9 10 3/mcL High 2.3-8.1 [facility] Comment on above: Performed By: #### G FR, CMP, VIDH, CBC, 529690, ANEU, ADIFF #### [place] [address] #### HEPAC, IGG #### [address] [address] CBCon 04-09-2024 Erythrocyte distribution width (RBC) [Ratio] 14.2 % Normal 11.5-15.5 [facility] Comment on above: Performed By: #### C BC, ANEU, ADIFF #### [address] [address] Hematocrit (Bld) [Volume fraction] 41.2 % Normal 34.0-46.0 [facility] Comment on above: Performed By: #### C BC, ANEU, ADIFF #### [address] [address] Hgb 14.1 G/dL Normal 12.0-16.0 [facility] Comment on above: Performed By: #### C BC, ANEU, ADIFF #### [address] [address] MCH (RBC) [Entitic mass] 30.4 pg Normal 27.0-33.0 [facility] Comment on above: Performed By: #### C BC, ANEU, ADIFF #### [facility] [address] [place], [place] [address] MCHC 34.2 G/dL Normal 32.0-36.0 [facility] Comment on above: Performed By: #### C BC, ANEU, ADIFF #### [facility] [address] [place], [place] [address] MCV (RBC) [Entitic vol] 88.7 fL Normal 80.0-99.0 [facility] Comment on above: Performed By: #### C BC, ANEU, ADIFF #### [place] [address] [place], [place] [address] Platelet 288 10 3/mcL Normal 150-450 [facility] Comment on above: Performed By: #### C BC, ANEU, ADIFF #### [place] [address] [place], [place] [address] Platelet mean volume (Bld) [Entitic vol] 9.9 fL Normal 6.6-10.5 [facility] Comment on above: Performed By: #### C BC, ANEU, ADIFF #### [address] [address] RBC 4.65 10 6/mcL Normal 4.10-5.30 [facility] Comment on above: Performed By: #### C BC, ANEU, ADIFF #### [place] [address] [place], [place] [address] WBC 12.6 10 3/mcL High 4.5-10.8 [facility] Comment on above: Performed By: #### C BC, ANEU, ADIFF #### [place] [address] [place], [place] [address] LABORATORYOrdered By: SYSTEM SYSTEM on 04-09-2024 Basophils (Bld) [#/Vol] 0.0 103/mcL Normal 0.0 - 0.2 10^3/mcL AO Workflow SS Basophils/100 WBC (Bld) 0.4 % Normal 0.0 - 2.5 % AO Workflow SS Eosinophil, Absolute 0.3 103/mcL Normal 0.0 - 0 .7 10^3/mcL AO Workflow SS Eosinophils/100 WBC (Bld) 2.7 % Normal 0.0 - 7.0 % AO Workflow SS Erythrocyte distribution width (RBC) [Ratio] 14.2 % Normal 11.5 - 15.5 % AO Workflow SS Hematocrit (Bld) [Volume fraction] 41.2 % Normal 34.0 - 46.0 % AO Workflow SS Hemoglobin (Bld) [Mass/Vol] 14.1 G/dL Normal 12.0 - 16.0 G/dL AO Workflow SS Lymphocytes (Bld) [#/Vol] 1.6 103/mcL Normal 0.9 - 4.3 10^3/mcL AO Workflow SS Lymphocytes/100 WBC (Bld) 12.4 % Low 20.0 - 40.0 % AO Workflow SS MCH (RBC) [Entitic mass] 30.4 pg Normal 27.0 - 33.0 pg AO Workflow SS MCHC 34.2 G/dL Normal 32.0 - 36.0 G/dL AO Workflow SS MCV (RBC) [Entitic vol] 88.7 fL Normal 80.0 - 99.0 fL AO Workflow SS Monocytes (Bld) [#/Vol] 0.7 103/mcL Normal 0.1 - 1.4 10^3/mcL AO Workflow SS Monocytes/100 WBC (Bld) 5.9 % Normal 2.0 - 13.0 % AO Workflow SS Neutrophils (Bld) [#/Vol] 9.9 103/mcL High 2.3 - 8.1 10^3/mcL AO Workflow SS Neutrophils/100 WBC (Bld) 78.6 % High 50.0 - 75.0 % AO Workflow SS Platelet mean volume (Bld) [Entitic vol] 9.9 fL Normal 6.6 - 10.5 fL AO Workflow SS Platelets (Bld) [#/Vol] 288 103/mcL Normal 150 - 450 10^3/mcL AO Workflow SS RBC (Bld) [#/Vol] 4.65 106/mcL Normal 4.10 - 5.3 0 10^6/mcL AO Workflow SS WBC (Bld) [#/Vol] 12.6 103/mcL High 4.5 - 10.8 10^3/mcL AO Workflow SS SCRN MAMM (CAD)W/PITOZeeshan Bethea n 03-25-2024 SCRN MAMM (CAD)W/PITO [facility] Services [address] [place] [address] SCRN MAMM (CAD)W/PITO BILAT MR#: [id number] Acct: [id number] Name: NEO PAZ Rep #: [id number] : 1970 F 54 From: Venita Johnston MD PCP: Dr. Betzy Olivo DO Status: DEP CLI Study: SCRN MAMM (CAD)W/PITO BILAT Date of Exam: 06/13 Exam# [id number] Ordering Dr: Betzy Olivo DO ADDENDUM by Dr. Venita Johnston MD on 04/11/24 at 0928 The patient is priors are now available dating 12/13/2022. The focal asymmetry in the upper-outer left breast at middle depth is stable when compared to the prior of 12/13/2022. Considering the 2 year stability this areas likely benign. The new assigned BI-RADS is 2, benign. Follow-up is return to annual screening mammogram. Reading Location: [facility] 04/11/[address]27 Date cc: Dr. Betzy Olivo, * Signed PROCEDURE: SCRN MAMM (CAD)W/PITO BILAT REASON FOR EXAM: F, Age 54 y/o, presents for an annual screening mammogram. TECHNIQUE: Bilateral screening digital breast tomosynthesis with 2D and 3D images. Computer aided detection. COMPARISON: No priors available . FINDINGS: There are scattered areas of fibroglandular density. There is a focal asymmetry in upper outer left breast at middle depth. There are no suspicious masses, grouped calcifications or architectural distortions in the right breast. BI/SCRN MAMM (CAD)W/PITO BILAT IMPRESSION: The focal asymmetry in the upper outer left breast at middle depth requires further evaluation. Recommend diagnostic mammogram and ultrasound of the left breast. BI-RADS 0: INCOMPLETE - NEED ADDITIONAL IMAGING EVALUATION. Follow-up code: Additional Views obtained/call backs The patient will be notified of the results by letter. Reading Location: [id number] CC: Dr. Betzy Olivo, Product Picker: Signed [facility] QUANTTBon 01-25-2024 QFT Criteria Comment [place] Comment on above: Result Comment: QuantiFERON-TB Gold Plus is a qualitative indirect test for M tuberculosis infection (including disease) and is intended for use in conjunction with risk assessment, radiography, and other medical and diagnostic evaluations. The QuantiFERON-TB Gold Plus result is determined by subtracting the Nil value from either TB antigen (Ag) value. The Mitogen tube serves as a control for the test. Performed By: #### G FR, CMP, VIDH, CBC, [id number], ANEU, ADIFF #### [place] [address] #### HEPAC, IGG #### [place] [address] QFT Mitogen Value >10.00 [place] Comment on above: Performed By: #### G FR, CMP, VIDH, CBC, 005499, ANEU, ADIFF #### [place] [address] #### HEPAC, IGG #### [place] [address] QFT Nil Value 0.00 IU/mL [place] Comment on above: Performed By: #### G FR, CMP, VIDH, CBC, 282638, ANEU, ADIFF #### [place] [address] #### HEPAC, IGG #### [place] [address] QFT TB1 Ag Value 0.00 IU/mL [place] Comment on above: Performed By: #### G FR, CMP, VIDH, CBC, 546867, ANEU, ADIFF #### [place] [address] #### HEPAC, IGG #### [address] [address] QFT TB2 Ag Value 0.00 IU/mL Normal [facility] Comment on above: Performed By: #### G FR, CMP, VIDH, CBC, 076110, ANEU, ADIFF #### [address] [address] #### HEPAC, IGG #### [place] [address] QFT-TB Gold Plus Clt Inc Negative Normal Negative [facility] Comment on above: Result Comment: No r esponse to M tuberculosis antigens detected. Infection with M tuberculosis is unlikely, but high risk individuals should be considered for additional testing (ATS/IDSA/CDC Clinical Practice Guidelines, 2017). The reference range is an Antigen minus Nil result of <0.35 IU/mL. The specimen received for QuantiFERON testing was incubated by the ordering institution. Specific procedures outlined in our Directory of Services and in the package insert for the QuantiFERON Gold (In Tube) test must be followed to enable for proper stimulation of cells for the production of interferon gamma. Chemiluminescence immunoassay methodology Performed At: Lab[address] [id number] Sharonda Connor PhD Ph:[phone] Performed By: #### G FR, CMP, VIDH, CBC, 430724, ANEU, ADIFF #### [place] [address] #### HEPAC, IGG #### [address] [address] .Auto Diffon 01-23-2024 Basophil, Absolute 0.0 10 3/mcL Normal 0.0-0.2 [facility] Comment on above: Performed By: #### G FR, CMP, VIDH, CBC, 520846, ANEU, ADIFF #### [address] [address] #### HEPAC, IGG #### [address] [address] Basophils/100 WBC (Bld) 0.4 % Normal 0.0-2.5 [facility] Comment on above: Performed By: #### G FR, CMP, VIDH, CBC, 274034, ANEU, ADIFF #### [address] [address] #### HEPAC, IGG #### [address] [address] Eosinophil, Absolute 0.3 10 3/mcL Normal 0.0-0.7 [facility] Comment on above: Performed By: #### G FR, CMP, VIDH, CBC, 145896, ANEU, ADIFF #### [address] [address] #### HEPAC, IGG #### [address] [address] Eosinophils/100 WBC (Bld) 3.1 % Normal 0.0-7.0 [facility] Comment on above: Performed By: #### G FR, CMP, VIDH, CBC, 213627, ANEU, ADIFF #### [place] [address] #### HEPAC, IGG #### [address] [address] Lymphocyte, Absolute 1.4 10 3/mcL Normal 0.9-4.3 [facility] Comment on above: Performed By: #### G FR, CMP, VIDH, CBC, 593859, ANEU, ADIFF #### [place] [address] #### HEPAC, IGG #### [address] [address] Lymphocytes/100 WBC (Bld) 12.8 % Low 20.0-40.0 [facility] Comment on above: Performed By: #### G FR, CMP, VIDH, CBC, 110306, ANEU, ADIFF #### [place] [address] #### HEPAC, IGG #### [address] [address] Monocyte, Absolute 0.6 10 3/mcL Normal 0.1-1.4 [facility] Comment on above: Performed By: #### G FR, CMP, VIDH, CBC, 287739, ANEU, ADIFF #### [address] [address] #### HEPAC, IGG #### [facility] [address] [place] [address] Monocytes/100 WBC (Bld) 5.7 % Normal 2.0-13.0 [facility] Comment on above: Performed By: #### G FR, CMP, VIDH, CBC, 205246, ANEU, ADIFF #### [address] [address] #### HEPAC, IGG #### [address] [address] Neutrophils/100 WBC (Bld) 78.0 % High 50.0-75.0 [facility] Comment on above: Performed By: #### G FR, CMP, VIDH, CBC, 477324, ANEU, ADIFF #### [address] [address] #### HEPAC, IGG #### [address] [address] .GFRon 01-23-2024 GFR 97 ml/min/1.73sqm Normal [facility] Comment on above: Result Comment: GFR Population mean for , Non- Americans Ages 20-29 = 116 mL/min/1.73 sq.m. Ages 30-39 = 107 mL/min/1.73 sq.m. Ages 40-49 = 99 mL/min/1.73 sq.m. Ages 50-59 = 93 mL/min/1.73 sq.m. Ages 60-69 = 85 mL/min/1.73 sq.m. Ages 70+ = 75 mL/min/1.73 sq.m. Chronic Kidney Disease: Less than 60 mL/min/1.73 square meters End Stage Renal Disease: Less than 15 mL/min/1.73 square meters Performed By: #### G FR, CMP, VIDH, CBC, 362313, ANEU, ADIFF #### [address] [address] #### HEPAC, IGG #### [address] [address] GFR Non- 80 ml/min/1.73sqm Normal [facility] Comment on above: Result Comment: GFR Population mean for , Non- Americans Ages 20-29 = 116 mL/min/1.73 sq.m. Ages 30-39 = 107 mL/min/1.73 sq.m. Ages 40-49 = 99 mL/min/1.73 sq.m. Ages 50-59 = 93 mL/min/1.73 sq.m. Ages 60-69 = 85 mL/min/1.73 sq.m. Ages 70+ = 75 mL/min/1.73 sq.m. Chronic Kidney Disease: Less than 60 mL/min/1.73 square meters End Stage Renal Disease: Less than 15 mL/min/1.73 square meters Performed By: #### G FR, CMP, VIDH, CBC, 130366, ANEU, ADIFF #### [address] [address] #### HEPAC, IGG #### [place] [address] .NEUABSon 01-23-2024 Neutrophil, Absolute 8.7 10 3/mcL High 2.3-8.1 [facility] Comment on above: Performed By: #### G FR, CMP, VIDH, CBC, 669023, ANEU, ADIFF #### [address] [address] #### HEPAC, IGG #### [address] [address] CBCon 01-23-2024 Erythrocyte distribution width (RBC) [Ratio] 14.3 % Normal 11.5-15.5 [facility] Comment on above: Performed By: #### G FR, CMP, VIDH, CBC, 827906, ANEU, ADIFF #### [address] [address] #### HEPAC, IGG #### [place] [address] Hematocrit (Bld) [Volume fraction] 41.4 % Normal 34.0-46.0 [facility] Comment on above: Performed By: #### G FR, CMP, VIDH, CBC, 761915, ANEU, ADIFF #### [place] [address] #### HEPAC, IGG #### [place] [address] Hgb 13.7 G/dL Normal 12.0-16.0 [facility] Comment on above: Performed By: #### G FR, CMP, VIDH, CBC, 566996, ANEU, ADIFF #### [place] [address] #### HEPAC, IGG #### [place] [address] MCH (RBC) [Entitic mass] 29.8 pg Normal 27.0-33.0 [facility] Comment on above: Performed By: #### G FR, CMP, VIDH, CBC, 201802, ANEU, ADIFF #### [place] [address] #### HEPAC, IGG #### [place] [address] MCHC 33.0 G/dL Normal 32.0-36.0 [facility] Comment on above: Performed By: #### G FR, CMP, VIDH, CBC, 325579, ANEU, ADIFF #### [place] [address] #### HEPAC, IGG #### [place] [address] MCV (RBC) [Entitic vol] 90.3 fL Normal 80.0-99.0 [facility] Comment on above: Performed By: #### G FR, CMP, VIDH, CBC, 885562, ANEU, ADIFF #### [place] [address] #### HEPAC, IGG #### [address] [address] Platelet 267 10 3/mcL Normal 150-450 [facility] Comment on above: Performed By: #### G FR, CMP, VIDH, CBC, 334122, ANEU, ADIFF #### [address] [address] #### HEPAC, IGG #### [place] [address] Platelet mean volume (Bld) [Entitic vol] 9.8 fL Normal 6.6-10.5 [facility] Comment on above: Performed By: #### G FR, CMP, VIDH, CBC, 144841, ANEU, ADIFF #### [place] [address] #### HEPAC, IGG #### [place] [address] RBC 4.58 10 6/mcL Normal 4.10-5.30 [facility] Comment on above: Performed By: #### G FR, CMP, VIDH, CBC, 342632, ANEU, ADIFF #### [address] [address] #### HEPAC, IGG #### [place] [address] WBC 11.2 10 3/mcL High 4.5-10.8 [facility] Comment on above: Performed By: #### G FR, CMP, VIDH, CBC, 927788, ANEU, ADIFF #### [address] [address] #### HEPAC, IGG #### [place] [address] CMPon 01-23-2024 Albumin Level 3.9 G/dL Normal 3.5-5.0 [facility] Comment on above: Performed By: #### G FR, CMP, VIDH, CBC, 121137, ANEU, ADIFF #### [place] [address] #### HEPAC, IGG #### [address] [address] Albumin/Globulin [Mass ratio] 1.4 {ratio} Normal 1.1-2.5 [facility] Comment on above: Performed By: #### G FR, CMP, VIDH, CBC, 888428, ANEU, ADIFF #### [place] [address] #### HEPAC, IGG #### [address] [address] ALP [Catalytic activity/Vol] 114 U/L Normal 40-135 [facility] Comment on above: Performed By: #### G FR, CMP, VIDH, CBC, 948604, ANEU, ADIFF #### [place] [address] #### HEPAC, IGG #### [place] [address] ALT [Catalytic activity/Vol] 23 U/L Normal 14-59 [facility] Comment on above: Performed By: #### G FR, CMP, VIDH, CBC, 222655, ANEU, ADIFF #### [place] [address] #### HEPAC, IGG #### [place] [address] AST [Catalytic activity/Vol] 11 U/L Normal 10-40 [facility] Comment on above: Performed By: #### G FR, CMP, VIDH, CBC, 056963, ANEU, ADIFF #### [place] [address] #### HEPAC, IGG #### [place] [id number] Bili Total 0.5 mg/dL Normal 0.2-1.0 [facility] Comment on above: Result Comment: Use of this assay is not recommended for patients undergoing treatment with eltrombopag due to the potential for falsely elevated results. Performed By: #### G FR, CMP, VIDH, CBC, 150329, ANEU, ADIFF #### [address] [address] #### HEPAC, IGG #### [address] [address] BUN/Creatinine Ratio 26 ratio Normal 7-27 [facility] Comment on above: Performed By: #### G FR, CMP, VIDH, CBC, 777335, ANEU, ADIFF #### [place] [address] #### HEPAC, IGG #### [address] [address] Calcium [Mass/Vol] 9.5 mg/dL Normal 8.4-10.2 [facility] Comment on above: Performed By: #### G FR, CMP, VIDH, CBC, 323756, ANEU, ADIFF #### [place] [address] #### HEPAC, IGG #### [address] [address] Chloride [Moles/Vol] 99 mmol/L Normal 98-107 [facility] Comment on above: Performed By: #### G FR, CMP, VIDH, CBC, 196286, ANEU, ADIFF #### [address] [address] #### HEPAC, IGG #### [address] [address] CO2 [Moles/Vol] 32 mmol/L High 22-29 [facility] Comment on above: Performed By: #### G FR, CMP, VIDH, CBC, 611044, ANEU, ADIFF #### [place] [address] #### HEPAC, IGG #### [address] [address] Creatinine [Mass/Vol] 0.76 mg/dL Normal 0.55-1.02 [facility] Comment on above: Result Comment: Test ing performed on Siemens Dimension EXL analyzer using a modified kinetic Shira technique. Performed By: #### G FR, CMP, VIDH, CBC, 299334, ANEU, ADIFF #### [address] [address] #### HEPAC, IGG #### [address] [address] Electrolyte Balance 7.0 mEq/L Normal 4.0-15.0 [place] Comment on above: Performed By: #### G FR, CMP, VIDH, CBC, 098852, ANEU, ADIFF #### [place] [address] #### HEPAC, IGG #### [address] [address] Globulin 2.8 G/dL Normal [facility] Comment on above: Performed By: #### G FR, CMP, VIDH, CBC, 006625, ANEU, ADIFF #### [place] [address] #### HEPAC, IGG #### [address] [address] Glucose [Mass/Vol] 127 mg/dL High 70-105 [facility] Comment on above: Performed By: #### G FR, CMP, VIDH, CBC, 046626, ANEU, ADIFF #### [address] [address] #### HEPAC, IGG #### [address] [address] Potassium [Moles/Vol] 4.6 mmol/L Normal 3.5-5.1 [facility] Comment on above: Performed By: #### G FR, CMP, VIDH, CBC, 061083, ANEU, ADIFF #### [place] [address] #### HEPAC, IGG #### [address] [address] Sodium [Moles/Vol] 138 mmol/L Normal 136-145 [facility] Comment on above: Performed By: #### G FR, CMP, VIDH, CBC, 457663, ANEU, ADIFF #### [place] [address] #### HEPAC, IGG #### [address] [address] Total Protein 6.7 G/dL Normal 6.4-8.2 [facility] Comment on above: Performed By: #### G FR, CMP, VIDH, CBC, 484696, ANEU, ADIFF #### [place] [address] #### HEPAC, IGG #### [place] [address] Urea nitrogen [Mass/Vol] 20 mg/dL High 09-05 [facility] Comment on above: Performed By: #### G FR, CMP, VIDH, CBC, 528705, ANEU, ADIFF #### [place] [address] #### HEPAC, IGG #### [place] [address] HEPACon 01-23-2024 Hep A IgM Ab Non-Reactive Normal Non-Reactiv e [facility] Comment on above: Performed By: #### G FR, CMP, VIDH, CBC, 611491, ANEU, ADIFF #### [place] [address] #### HEPAC, IGG #### [place] [address] Hep A IgM Ab Int Normal [facility] Comment on above: Result Comment: No s erological evidence of a current Hepatitis A infection. See Interp Performed By: #### G FR, CMP, VIDH, CBC, 467915, ANEU, ADIFF #### [place] [address] #### HEPAC, IGG #### [place] [id number] Hep B Core IgM Ab Non-Reactive Normal Non-Reacti v e [facility] Comment on above: Performed By: #### G FR, CMP, VIDH, CBC, 921198, ANEU, ADIFF #### [address] [address] #### HEPAC, IGG #### [address] [address] Hep B Core IgM Ab Int Normal [facility] Comment on above: Result Comment: Samp les with a value < 0.80 Index are considered nonreactive (negative) for IgM antibodies to hepatitis B core antigen. See Interp Performed By: #### G FR, CMP, VIDH, CBC, 840837, ANEU, ADIFF #### [place] [address] #### HEPAC, IGG #### [address] [address] Hep B Surf Ag Non-Reactive Normal [facility] Comment on above: Performed By: #### G FR, CMP, VIDH, CBC, 812515, ANEU, ADIFF #### [address] [address] #### HEPAC, IGG #### [place] [id number] Hep C Ab Non-Reactive Normal [facility] Comment on above: Performed By: #### G FR, CMP, VIDH, CBC, 906182, ANEU, ADIFF #### [place] [address] #### HEPAC, IGG #### [place] [id number] Hep C Ab Int Normal [facility] Comment on above: Result Comment: Nonr eactive: Samples with a value < 0.80 are considered nonreactive (negative) for antibodies to HCV. A negative test result does not exclude the possibility of exposure to or infection with HCV. HCV antibodies may be undetectable in some stages of the infection and in some clinical conditions. See Interp Performed By: #### G FR, CMP, VIDH, CBC, 463893, ANEU, ADIFF #### [address], [place] [address] #### HEPAC, IGG #### [facility] [address] [place], [place] [address] IGGon 01-23-2024 IgG [Mass/Vol] 846 mg/dL Normal 650-1600 [facility] Comment on above: Result Comment: No te - New Reference Range in effect 19 Performed By: #### G FR, CMP, VIDH, CBC, 993965, ANEU, ADIFF #### [place] [address] [place], [place] [address] #### HEPAC, IGG #### [facility] [address] [place] [address] LABORATORYOrdered By: SYSTEM SYSTEM on 01-23-2024 25-hydroxyvitamin D3 [Mass/Vol] 52.6 ng/mL Invalid Interpretation Code AO ADM SS Comment on above: Interpretive Data: I nterpretive Values Based on Total 25(OH) Vitamin D: Deficient <20 ng/mL Insufficient 20 - <30 ng/mL Sufficient 30-100 ng/mL Albumin BCP dye [Mass/Vol] 3.9 G/dL Normal 3.5 - 5.0 G/dL AO ADM SS Albumin/Globulin [Mass ratio] 1.4 {ratio} Normal 1.1 - 2.5 ratio AO ADM SS ALP [Catalytic activity/Vol] 114 U/L Normal 40 - 135 U/L AO ADM SS ALT With P-5'-P [Catalytic activity/Vol] 23 U/L Normal 14 - 59 U/L AO ADM SS AST With P-5'-P [Catalytic activity/Vol] 11 U/L Normal 10 - 40 U/L AO ADM SS Basophils (Bld) [#/Vol] 0.0 103/mcL Normal 0.0 - 0.2 10^3/mcL AO Workflow SS Basophils/100 WBC (Bld) 0.4 % Normal 0.0 - 2.5 % AO Workflow SS Bilirubin [Mass/Vol] 0.5 mg/dL Normal 0.2 - 1 .0 mg/dL AO ADM SS Comment on above: Interpretive Data: U se of this assay is not recommended for patients undergoing treatment with eltrombopag due to the potential for falsely elevated results. Calcium [Mass/Vol] 9.5 mg/dL Normal 8.4 - 10. 2 mg/dL AO ADM SS Chloride [Moles/Vol] 99 mmol/L Normal 98 - 10 7 mmol/L AO ADM SS CO2 [Moles/Vol] 32 mmol/L High 22 - 29 mmol/L AO ADM SS Creatinine [Mass/Vol] 0.76 mg/dL Normal 0.55 - 1.02 mg/dL AO ADM SS Comment on above: Interpretive Data: T esting performed on Siemens Dimension EXL analyzer using a modified kinetic Shira technique. Electrolyte Balance 7.0 mEq/L Normal 4.0 - 15 .0 mEq/L AO ADM SS Eosinophil, Absolute 0.3 103/mcL Normal 0.0 - 0 .7 10^3/mcL AO Workflow SS Eosinophils/100 WBC (Bld) 3.1 % Normal 0.0 - 7.0 % AO Workflow SS Erythrocyte distribution width (RBC) [Ratio] 14.3 % Normal 11.5 - 15.5 % AO Workflow SS GFR/1.73 sq M.predicted among blacks MDRD (S/P/Bld) [Vol rate/Area] 97 ml/min/1.73sqm Invalid Interpretation Code AO Chemistry S Comment on above: Interpretive Data: GFR Population mean for , Non- Americans Ages 20-29 = 116 mL/min/1.73 sq.m. Ages 30-39 = 107 mL/min/1.73 sq.m. Ages 40-49 = 99 mL/min/1.73 sq.m. Ages 50-59 = 93 mL/min/1.73 sq.m. Ages 60-69 = 85 mL/min/1.73 sq.m. Ages 70+ = 75 mL/min/1.73 sq.m. Chronic Kidney Disease: Less than 60 mL/min/1.73 square meters End Stage Renal Disease: Less than 15 mL/min/1.73 square meters GFR/1.73 sq M.predicted among non-blacks MDRD (S/P/Bld) [Vol rate/Area] 80 ml/min/1.73sqm Invalid Interpretation Code AO Chemistry S Comment on above: Interpretive Data: GFR Population mean for , Non- Americans Ages 20-29 = 116 mL/min/1.73 sq.m. Ages 30-39 = 107 mL/min/1.73 sq.m. Ages 40-49 = 99 mL/min/1.73 sq.m. Ages 50-59 = 93 mL/min/1.73 sq.m. Ages 60-69 = 85 mL/min/1.73 sq.m. Ages 70+ = 75 mL/min/1.73 sq.m. Chronic Kidney Disease: Less than 60 mL/min/1.73 square meters End Stage Renal Disease: Less than 15 mL/min/1.73 square meters Globulin 2.8 G/dL Invalid Interpretation Code AO ADM SS Glucose [Mass/Vol] 127 mg/dL High 70 - 105 mg/dL AO ADM SS Hematocrit (Bld) [Volume fraction] 41.4 % Normal 34.0 - 46.0 % AO Workflow SS Hemoglobin (Bld) [Mass/Vol] 13.7 G/dL Normal 12.0 - 16.0 G/dL AO Workflow SS IgG [Mass/Vol] 846 mg/dL Normal 650 - 1600 mg/dL AH ADM SS Comment on above: Interpretive Data: * *Note - New Reference Range in effect 19 Lymphocytes (Bld) [#/Vol] 1.4 103/mcL Normal 0.9 - 4.3 10^3/mcL AO Workflow SS Lymphocytes/100 WBC (Bld) 12.8 % Low 20.0 - 40.0 % AO Workflow SS MCH (RBC) [Entitic mass] 29.8 pg Normal 27.0 - 33.0 pg AO Workflow SS MCHC 33.0 G/dL Normal 32.0 - 36.0 G/dL AO Workflow SS MCV (RBC) [Entitic vol] 90.3 fL Normal 80.0 - 99.0 fL AO Workflow SS Monocytes (Bld) [#/Vol] 0.6 103/mcL Normal 0.1 - 1.4 10^3/mcL AO Workflow SS Monocytes/100 WBC (Bld) 5.7 % Normal 2.0 - 13.0 % AO Workflow SS Neutrophils (Bld) [#/Vol] 8.7 103/mcL High 2.3 - 8.1 10^3/mcL AO Workflow SS Neutrophils/100 WBC (Bld) 78.0 % High 50.0 - 75.0 % AO Workflow SS Platelet mean volume (Bld) [Entitic vol] 9.8 fL Normal 6.6 - 10.5 fL AO Workflow SS Platelets (Bld) [#/Vol] 267 103/mcL Normal 150 - 450 10^3/mcL AO Workflow SS Potassium [Moles/Vol] 4.6 mmol/L Normal 3.5 - 5.1 mmol/L AO ADM SS Protein [Mass/Vol] 6.7 G/dL Normal 6.4 - 8.2 G/dL AO ADM SS RBC (Bld) [#/Vol] 4.58 106/mcL Normal 4.10 - 5.3 0 10^6/mcL AO Workflow SS Sodium [Moles/Vol] 138 mmol/L Normal 136 - 145 mmol/L AO ADM SS Urea nitrogen [Mass/Vol] 20 mg/dL High 7 - 18 mg/dL AO ADM SS Urea nitrogen/Creatinine [Mass ratio] 26 ratio Normal 7 - 27 ratio AO ADM SS WBC (Bld) [#/Vol] 11.2 103/mcL High 4.5 - 10.8 10^3/mcL AO Workflow SS LABORATORYOrdered By: Phoenix Krishnan on 01-23-2024 HAV IgM IA Ql Non-Reactive (01/23/24 4:08 PM) Normal Non-Reactiv e ADM SS HAV IgM IA Ql No serological evidence of a current Hepatitis A infection. Invalid Interpretation Code Chemistry S HBV core IgM IA Ql Non-Reactive (01/23/24 4:08 PM) Normal Non-Reactiv e ADM SS HBV core IgM IA Ql Samples with a value < 0.80 Index are considered nonreactive (negative) for IgM antibodies to hepatitis B core antigen. Invalid Interpretation Code Chemistry S HBV surface Ag IA Ql Non-Reactive (01/23/24 4:08 PM) Normal Non-Reactiv e ADM SS HCV Ab IA Ql Non-Reactive (01/23/24 4:08 PM) Normal Non-Reactiv e ADM SS HCV Ab IA Ql Nonreactive: Samples with a value < 0.80 are considered nonreactive (negative) for antibodies to HCV.A negative test result does not exclude the possibility of exposure to or infection with HCV. HCV antibodies may be undetectable in some stages of the infection and in some clinical conditions. Invalid Interpretation Code Chemistry S VIDHon 01-23-2024 Vit. D 25-Hydroxy 52.6 ng/mL Normal [facility] Comment on above: Result Comment: Inte rpretive Values Based on Total 25(OH) Vitamin D: Deficient <20 ng/mL Insufficient 20 - <30 ng/mL Sufficient 30-100 ng/mL Performed By: #### G FR, CMP, VIDH, CBC, 268962, ANEU, ADIFF #### [facility] [address] [place], [place] [address] #### HEPAC, IGG #### [facility] [address] [place] [address] Colonoscopy Reporton [id number] Colonoscopy Report [facility] Medical Records Department [address] [place] [address] Colonoscopy Report MR#: [id number] Acct: [id number] Name: NEO PAZ BRIAN Rep #: [id number] : 1970 53 From: Jorge Jimenes DO PCP: Dr. Betzy Olivo DO Status:[facility] Patient Name: Neo Paz Procedure Date: 11/07/2023 11:39 AM Date of : 1970 Age: 53 Procedure: Colonoscopy Indications: Screening for colorectal malignant neoplasm Providers: Jorge Jimenes DO Medicines: Monitored Anesthesia Care Patient Profile: This is a 53 year old female. Refer to note in patient chart for documentation of history and physical. Last Colonoscopy: 10 years ago. Complications: No immediate complications. Procedure: Pre-Anesthesia Assessment: - Prior to the procedure, a History and Physical was performed, and patient medications and allergies were reviewed. The patient is competent. The risks and benefits of the procedure and the sedation options and risks were discussed with the patient. All questions were answered and informed consent was obtained. Patient identification and proposed procedure were verified by the physician in the pre-procedure area. Mental Status Examination: alert and oriented. Airway Examination: normal oropharyngeal airway and neck mobility. Respiratory Examination: clear to auscultation. CV Examination: normal. Prophylactic Antibiotics: The patient does not require prophylactic antibiotics. Prior Anticoagulants: The patient has taken no anticoagulant or antiplatelet agents except for NSAID medication. ASA Grade Assessment: II - A patient with mild systemic disease. After reviewing the risks and benefits, the patient was deemed in satisfactory condition to undergo the procedure. The anesthesia plan was to use monitored anesthesia care (MAC). Immediately prior to administration of medications, the patient was re-assessed for adequacy to receive sedatives. The heart rate, respiratory rate, oxygen saturations, blood pressure, adequacy of pulmonary ventilation, and response to care were monitored throughout the procedure. The physical status of the patient was re-assessed after the procedure. After I obtained informed consent, the scope was passed under direct vision. Throughout the procedure, the patient's blood pressure, pulse, and oxygen saturations were monitored continuously. The colonoscope was introduced through the anus and advanced to the cecum, identified by appendiceal orifice and ileocecal valve. The colonoscopy was performed with ease. The patient tolerated the procedure well. The quality of the bowel preparation was adequate. The ileocecal valve, appendiceal orifice, and rectum were photographed. Scope In: 11:48:03 AM Scope Withdrawal Time 0 hours 6 minutes 36 seconds Scope Out: 11:58:29 AM Total Procedure Duration Time 0 hours 10 minutes 26 seconds Findings: The perianal and digital rectal examinations were normal. A few small-mouthed diverticula were found in the recto-sigmoid colon and sigmoid colon. A 5 mm polyp was found in the sigmoid colon. The polyp was sessile. The polyp was removed with a cold snare. Resection and retrieval were complete. Verification of patient identification for the specimen was done. Estimated blood loss was minimal. The exam was otherwise without abnormality on direct and retroflexion views. Impression: - Diverticulosis in the recto-sigmoid colon and in the sigmoid colon. - One 5 mm polyp in the sigmoid colon, removed with a cold snare. Resected and retrieved. - The examination was otherwise normal on direct and retroflexion views. Recommendation: - Discharge patient to home. - Resume previous diet. - Continue present medications. - Await pathology results. - Repeat colonoscopy in 5 years for surveillance. Procedure Code(s): --- Professional --- 53986, Colonoscopy, flexible; with removal of tumor(s), polyp(s), or other lesion(s) by snare technique CPT copyright 2021 [employer]. All rights reserved. The codes documented in this report are preliminary and upon human resources admin review may be revised to meet current compliance requirements. Jorge Jimenes DO 11/07/2023 12:01:58 PM This report has been signed electronically. Number of Addenda: 0 Note Initiated On: 11/07/2023 11:39 AM 11/07/23 1202 Date Jorge Alejo Signature: Date (if indicated) CC: Dr. Betzy Olivo DO; Jorge Jimenes DO Date Dictated: 11/07/23 1139 Date Transcribed: Product Picker: DIVYA Signed [facility] MR/POSTOP.Afshin 11-07-2023 MR/POSTOP.[facility] Medical Records Department [address] [place] [address] Anesthesia Postop Eval I 11/07/23 1207 MR#: [id number] Acct: [id number] Name: EDUARD PAZLarry TORRES Rep #: [id number] : 1970 53 From: Michael Hedrick PCP: Dr. Betzy Olivo DO Status:REG SDC Y Race: C Location: [place] [address] Anesthesia: Postop Eval I Current Vital Signs Temperature: 97.1 F Pulse Rate: 71 Blood Pressure: 105/48 Respiratory Rate: 16 Pulse Ox: 98 Oxygen Delivery Method: Room Air Assessment Airway patent: Yes Spontaneous unlabored respirations: Yes Mental status: Awake and Calm nausea: No Vomiting: No Anesthesia Complication: No Fluid Hydration Crystalloid volume administer (ml): 600 Total IV fluid infused: 600 Progress Note Anesthesia document: Postop Eval 1 completed: Yes 11/07/23 1208 Date Michael Mendez Signature: Date CC: Signed [facility] MR/LQSLYOJL2iv 11-07-2023 MR/POSTOPAN2 [facility] Medical Records Department [address] [place] [address] Anesthesia Postop Eval II 11/07/23 1305 MR#: [id number] Acct: [id number] Name: NEO PAZ Rep #: [id number] : 1970 53 From: Jake Paz MD PCP: Dr. Betzy Olivo, DO Status:[facility] Y Race: C Location: [place] Anesthesia Postop Eval I Sum Postop Eval Completion status Anesthesia document: Postop Eval 1 completed: Yes Anesthesia Postop Eval I Summary Anesthesia Postop Eval I Summary: Anesthesia Postop Eval I: Assessment Summary Airway patent Yes 11/07/23 12:08 [email or web address] Spontaneous unlabored Yes 11/07/23 12:08 [email or web address] respirations Mental status Awake,Calm 11/07/23 12:08 [email or web address] nausea No 11/07/23 12:08 [email or web address] Vomiting No 11/07/23 12:08 [email or web address] Anesthesia Postop Eval I: Fluid Summary Crystalloid volume administer 600 11/07/23 12:08 [email or web address] (ml) Colloids volume administered ( ml) Blood Product volume administered (ml) Total IV fluid infused 600 11/07/23 12:08 [email or web address] Anesthesia Postop Eval I: Summary Notes Anesthesia Complication No 11/07/23 12:08 [email or web address] Anesthesia Complication Comment: Post-operative progress note Anesthesia: Postop Eval II Evaluation Mental status: Awake Pain Level: 0 nausea: No Vomiting: No 11/07/23 1306 Date Jake Paz MD Cosign Signature: Date CC: Signed Normal [facility] Surgery Specimen Level Maurice 11-07-2023 Surgery Specimen Level IV -------- Patient Age/Sex Location Account Attending Physician -------- NEO PAZ 53/F EN [id number] Jorge Jimenes DO -------- Specimen: [id number] Received: 11/07/23 Status: [facility] Tatianna Num: [id number] Spec Type: COLON BX Subm Dr: Jorge Jimenes DO HEADER OPERATION: Colonoscopy and polypectomy PRE-OP DIAGNOSIS: Encounter of malignant neoplasm of colon TISSUE SUBMITTED: Sigmoid colon polyp -------- MICROSCOPIC DIAGNOSIS Sigmoid colon polyp, biopsy: Fragments of tubular adenoma. AM.mr 11/08/2023 MICROSCOPIC DESCRIPTION Slides are reviewed. GROSS DESCRIPTION Received in fixative is one container labeled with the patient's name and designated Sigmoid colon polyp. The specimen consists of multiple irregular fragments of light garcia soft tissue that in aggregate measure 2.0 x 0.5 x 0.1 cm. The specimen is totally submitted in one cassette. 11/07/2023 TC:5 CPT:41996 -------- Patient Age/Sex Location Account Attending Physician -------- NEO PAZ 53/F EN [id number] Jorge Jimenes DO -------- Signed (signature on file) Dr. Bradley Oliveros DO 11/08/23 1417 -------- Normal [facility] Comment on above: Performed By: #### P SUIV #### [facility] [address] [place], [address] .Auto Diffon 07-19-2023 Basophil, Absolute 0.0 10 3/mcL Normal 0.0-0.2 [facility] ([place]) Comment on above: Performed By: #### A MABEL, CBC, VIDH, CMP, GFR, ADIFF #### [address] [address] #### IMMUN #### [address] [address] Basophils/100 WBC (Bld) 0.4 % Normal 0.0-2.5 [facility] ([place]) Comment on above: Performed By: #### A MABEL, CBC, VIDH, CMP, GFR, ADIFF #### [address] [address] #### IMMUN #### [address] [address] Eosinophil, Absolute 0.4 10 3/mcL Normal 0.0-0.4 [facility] ([place]) Comment on above: Performed By: #### A MABEL, CBC, VIDH, CMP, GFR, ADIFF #### [address] [address] #### IMMUN #### [address] [address] Eosinophils/100 WBC (Bld) 3.6 % Normal 0.0-7.0 [facility] ([place]) Comment on above: Performed By: #### A MABEL, CBC, VIDH, CMP, GFR, ADIFF #### [address] [address] #### IMMUN #### [address] [address] Lymphocyte, Absolute 1.2 10 3/mcL Normal 0.8-3.9 [facility] ([place]) Comment on above: Performed By: #### A MABEL, CBC, VIDH, CMP, GFR, ADIFF #### [address] [address] #### IMMUN #### [address] [address] Lymphocytes/100 WBC (Bld) 12.1 % Normal 10.0-50.0 [facility] ([place]) Comment on above: Performed By: #### A MABEL, CBC, VIDH, CMP, GFR, ADIFF #### [address] [address] #### IMMUN #### [address] [address] Monocyte, Absolute 0.6 10 3/mcL Normal 0.2-1.0 [facility] ([place]) Comment on above: Performed By: #### A MABEL, CBC, VIDH, CMP, GFR, ADIFF #### [address] [address] #### IMMUN #### [address] [address] Monocytes/100 WBC (Bld) 6.2 % Normal 1.7-13.0 [facility] ([place]) Comment on above: Performed By: #### A MABEL, CBC, VIDH, CMP, GFR, ADIFF #### [address] [address] #### IMMUN #### [address] [address] Neutrophils/100 WBC (Bld) 77.7 % Normal 37.0-80.0 [facility] ([place]) Comment on above: Performed By: #### A MABEL, CBC, VIDH, CMP, GFR, ADIFF #### [address] [address] #### IMMUN #### [address] [address] .GFRon 07-19-2023 GFR Non- 87 ml/min/1.73sqm Normal [facility] ([place]) Comment on above: Result Comment: GFR Population mean for , Non- Americans Ages 20-29 = 116 mL/min/1.73 sq.m. Ages 30-39 = 107 mL/min/1.73 sq.m. Ages 40-49 = 99 mL/min/1.73 sq.m. Ages 50-59 = 93 mL/min/1.73 sq.m. Ages 60-69 = 85 mL/min/1.73 sq.m. Ages 70+ = 75 mL/min/1.73 sq.m. Chronic Kidney Disease: Less than 60 mL/min/1.73 square meters End Stage Renal Disease: Less than 15 mL/min/1.73 square meters Performed By: #### A MABEL, CBC, VIDH, CMP, GFR, ADIFF #### [address] [address] #### IMMUN #### [address] [address] GFR 105 ml/min/1.73sqm Normal [facility] ([place]) Comment on above: Result Comment: GFR Population mean for , Non- Americans Ages 20-29 = 116 mL/min/1.73 sq.m. Ages 30-39 = 107 mL/min/1.73 sq.m. Ages 40-49 = 99 mL/min/1.73 sq.m. Ages 50-59 = 93 mL/min/1.73 sq.m. Ages 60-69 = 85 mL/min/1.73 sq.m. Ages 70+ = 75 mL/min/1.73 sq.m. Chronic Kidney Disease: Less than 60 mL/min/1.73 square meters End Stage Renal Disease: Less than 15 mL/min/1.73 square meters Performed By: #### A MABEL, CBC, VIDH, CMP, GFR, ADIFF #### [address] [address] #### IMMUN #### [address] [address] .NEUABSon 07-19-2023 Neutrophil, Absolute 7.6 10 3/mcL High 2.9-6.2 [facility] ([place]) Comment on above: Performed By: #### A MABEL, CBC, VIDH, CMP, GFR, ADIFF #### [place] [address] #### IMMUN #### [place] [address] CBCon 07-19-2023 Erythrocyte distribution width (RBC) [Ratio] 14.0 % Normal 11.5-14.5 [facility] ([place]) Comment on above: Performed By: #### A MABEL, CBC, VIDH, CMP, GFR, ADIFF #### [place] [address] #### IMMUN #### [place] [address] Hematocrit (Bld) [Volume fraction] 39.3 % Normal 37.0-47.0 [facility] ([place]) Comment on above: Performed By: #### A MABEL, CBC, VIDH, CMP, GFR, ADIFF #### [place] [address] #### IMMUN #### [place] [address] Hgb 13.7 G/dL Normal 12.0-16.0 [facility] ([place]) Comment on above: Performed By: #### A MABEL, CBC, VIDH, CMP, GFR, ADIFF #### [place] [address] #### IMMUN #### [place] [address] MCH (RBC) [Entitic mass] 30.2 pg Normal 27.0-31.2 [facility] ([place]) Comment on above: Performed By: #### A MABEL, CBC, VIDH, CMP, GFR, ADIFF #### [place] [address] #### IMMUN #### [place] [address] MCHC 35.0 G/dL Normal 33.0-37.0 [facility] ([place]) Comment on above: Performed By: #### A MABEL, CBC, VIDH, CMP, GFR, ADIFF #### [place] [id number] #### IMMUN #### [address] [address] MCV (RBC) [Entitic vol] 86.3 fL Normal 80.0-94.0 [facility] ([place]) Comment on above: Performed By: #### A MABEL, CBC, VIDH, CMP, GFR, ADIFF #### [place] [address] #### IMMUN #### [place] [address] Platelet 241 10 3/mcL Normal 130-400 [facility] ([place]) Comment on above: Performed By: #### A MAEBL, CBC, VIDH, CMP, GFR, ADIFF #### [place] [address] #### IMMUN #### [place] [address] Platelet mean volume (Bld) [Entitic vol] 9.8 fL Normal 7.4-10.4 [facility] ([place]) Comment on above: Performed By: #### A MABEL, CBC, VIDH, CMP, GFR, ADIFF #### [place] [address] #### IMMUN #### [address] [address] RBC 4.55 10 6/mcL Normal 4.20-5.40 [facility] ([place]) Comment on above: Performed By: #### A MABEL, CBC, VIDH, CMP, GFR, ADIFF #### [place] [address] #### IMMUN #### [place] [address] WBC 9.8 10 3/mcL Normal 4.6-10.8 [facility] ([place]) Comment on above: Performed By: #### A MABEL, CBC, VIDH, CMP, GFR, ADIFF #### [place] [address] #### IMMUN #### [address] [address] CMPon 07-19-2023 Albumin Level 3.6 G/dL Normal 3.5-5.0 [facility] ([place]) Comment on above: Performed By: #### A MABEL, CBC, VIDH, CMP, GFR, ADIFF #### [address] [address] #### IMMUN #### [address] [address] Albumin/Globulin [Mass ratio] 1.2 {ratio} Normal 1.1-2.5 [facility] ([place]) Comment on above: Performed By: #### A MABEL, CBC, VIDH, CMP, GFR, ADIFF #### [address] [address] #### IMMUN #### [address] [address] ALP [Catalytic activity/Vol] 106 U/L Normal 40-135 [facility] ([place]) Comment on above: Performed By: #### A MABEL, CBC, VIDH, CMP, GFR, ADIFF #### [address] [address] #### IMMUN #### [address] [address] ALT [Catalytic activity/Vol] 22 U/L Normal 14-59 [facility] ([place]) Comment on above: Performed By: #### A MABEL, CBC, VIDH, CMP, GFR, ADIFF #### [address] [address] #### IMMUN #### [address] [address] AST [Catalytic activity/Vol] 12 U/L Normal 10-40 [facility] ([place]) Comment on above: Performed By: #### A MABEL, CBC, VIDH, CMP, GFR, ADIFF #### [address] [address] #### IMMUN #### [address] [address] Bili Total 0.5 mg/dL Normal 0.2-1.0 [facility] ([place]) Comment on above: Result Comment: Use of this assay is not recommended for patients undergoing treatment with eltrombopag due to the potential for falsely elevated results. Performed By: #### A MABEL, CBC, VIDH, CMP, GFR, ADIFF #### [address] [address] #### IMMUN #### [address] [address] BUN/Creatinine Ratio 24 ratio Normal 7-27 [facility] ([place]) Comment on above: Performed By: #### A MABEL, CBC, VIDH, CMP, GFR, ADIFF #### [place] [address] #### IMMUN #### [address] [address] Calcium [Mass/Vol] 8.5 mg/dL Normal 8.4-10.2 Counts include 234 beds at the [facility] ([place]) Comment on above: Performed By: #### A MABEL, CBC, VIDH, CMP, GFR, ADIFF #### [place] [address] #### IMMUN #### [address] [address] Chloride [Moles/Vol] 106 mmol/L Normal 98-107 [facility] ([place]) Comment on above: Performed By: #### A MABEL, CBC, VIDH, CMP, GFR, ADIFF #### [place] [address] #### IMMUN #### [address] [address] CO2 [Moles/Vol] 29 mmol/L Normal 22-29 [facility] ([place]) Comment on above: Performed By: #### A MABEL, CBC, VIDH, CMP, GFR, ADIFF #### [place] [address] #### IMMUN #### [address] [address] Creatinine [Mass/Vol] 0.71 mg/dL Normal 0.55-1.02 [facility] ([place]) Comment on above: Performed By: #### A MABEL, CBC, VIDH, CMP, GFR, ADIFF #### [address] [address] #### IMMUN #### [address] [address] Electrolyte Balance 9.0 mEq/L Normal 4.0-15.0 [facility] ([place]) Comment on above: Performed By: #### A MABEL, CBC, VIDH, CMP, GFR, ADIFF #### [address] [address] #### IMMUN #### [address] [address] Globulin 3.0 G/dL Normal [facility] ([place]) Comment on above: Performed By: #### A MABEL, CBC, VIDH, CMP, GFR, ADIFF #### [address] [address] #### IMMUN #### [address] [address] Glucose [Mass/Vol] 136 mg/dL High 70-105 Counts include 234 beds at the [facility] ([place]) Comment on above: Performed By: #### A MABEL, CBC, VIDH, CMP, GFR, ADIFF #### [address] [address] #### IMMUN #### [address] [address] Potassium [Moles/Vol] 4.4 mmol/L Normal 3.5-5.1 [facility] ([place]) Comment on above: Performed By: #### A MABEL, CBC, VIDH, CMP, GFR, ADIFF #### [address] [address] #### IMMUN #### [address] [address] Sodium [Moles/Vol] 144 mmol/L Normal 136-145 Counts include 234 beds at the [facility] ([place]) Comment on above: Performed By: #### A MABEL, CBC, VIDH, CMP, GFR, ADIFF #### [address] [address] #### IMMUN #### [address] [address] Total Protein 6.6 G/dL Normal 6.4-8.2 [facility] ([place]) Comment on above: Performed By: #### A MABEL, CBC, VIDH, CMP, GFR, ADIFF #### [address] [address] #### IMMUN #### [address] [address] Urea nitrogen [Mass/Vol] 17 mg/dL Normal 7-18 [facility] ([place]) Comment on above: Performed By: #### A MABEL, CBC, VIDH, CMP, GFR, ADIFF #### [place] [address] #### IMMUN #### [address] [address] IMMUNon 07-19-2023 IgA [Mass/Vol] 98 mg/dL Normal 40-350 [facility] ([place]) Comment on above: Result Comment: No te - New Reference Range in effect 19 Performed By: #### A MABEL, CBC, VIDH, CMP, GFR, ADIFF #### [address] [address] #### IMMUN #### [address] [address] IgG [Mass/Vol] 748 mg/dL Normal 650-1600 [facility] ([place]) Comment on above: Result Comment: No te - New Reference Range in effect 19 Performed By: #### A MABEL, CBC, VIDH, CMP, GFR, ADIFF #### [address] [address] #### IMMUN #### [address] [address] IgM [Mass/Vol] 97 mg/dL Normal 50-300 [facility] ([place]) Comment on above: Result Comment: No te - New Reference Range in effect 19 Performed By: #### A MABEL, CBC, VIDH, CMP, GFR, ADIFF #### [facility] [address] [place], [place] [address] #### IMMUN #### [address] [address] LABORATORYOrdered By: SYSTEM SYSTEM on 07-19-2023 25-hydroxyvitamin D3 [Mass/Vol] 36.0 ng/mL Invalid Interpretation Code AO ADM SS Comment on above: Interpretive Data: I nterpretive Values Based on Total 25(OH) Vitamin D: Deficient <20 ng/mL Insufficient 20 - <30 ng/mL Sufficient 30-100 ng/mL Albumin BCP dye [Mass/Vol] 3.6 G/dL Normal 3.5 - 5.0 G/dL AO ADM SS Albumin/Globulin [Mass ratio] 1.2 {ratio} Normal 1.1 - 2.5 ratio AO ADM SS ALP [Catalytic activity/Vol] 106 U/L Normal 40 - 135 U/L AO ADM SS ALT With P-5'-P [Catalytic activity/Vol] 22 U/L Normal 14 - 59 U/L AO ADM SS AST With P-5'-P [Catalytic activity/Vol] 12 U/L Normal 10 - 40 U/L AO ADM SS Basophil, Absolute 0.0 103/mcL Normal 0.0 - 0.2 10^3/mcL AO Workflow SS Basophils/100 WBC (Bld) 0.4 % Normal 0.0 - 2.5 % AO Workflow SS Bilirubin [Mass/Vol] 0.5 mg/dL Normal 0.2 - 1 .0 mg/dL AO ADM SS Comment on above: Interpretive Data: U se of this assay is not recommended for patients undergoing treatment with eltrombopag due to the potential for falsely elevated results. Calcium [Mass/Vol] 8.5 mg/dL Normal 8.4 - 10. 2 mg/dL AO ADM SS Chloride [Moles/Vol] 106 mmol/L Normal 98 - 10 7 mmol/L AO ADM SS CO2 [Moles/Vol] 29 mmol/L Normal 22 - 29 mmol/L AO ADM SS Creatinine [Mass/Vol] 0.71 mg/dL Normal 0.55 - 1.02 mg/dL AO ADM SS Electrolyte Balance 9.0 mEq/L Normal 4.0 - 15 .0 mEq/L AO ADM SS Eosinophil, Absolute 0.4 103/mcL Normal 0.0 - 0 .4 10^3/mcL AO Workflow SS Eosinophils/100 WBC (Bld) 3.6 % Normal 0.0 - 7.0 % AO Workflow SS Erythrocyte distribution width (RBC) [Ratio] 14.0 % Normal 11.5 - 14.5 % AO Workflow SS GFR/1.73 sq M.predicted among blacks MDRD (S/P/Bld) [Vol rate/Area] 105 ml/min/1.73sqm Invalid Interpretation Code AO Chemistry S Comment on above: Interpretive Data: GFR Population mean for , Non- Americans Ages 20-29 = 116 mL/min/1.73 sq.m. Ages 30-39 = 107 mL/min/1.73 sq.m. Ages 40-49 = 99 mL/min/1.73 sq.m. Ages 50-59 = 93 mL/min/1.73 sq.m. Ages 60-69 = 85 mL/min/1.73 sq.m. Ages 70+ = 75 mL/min/1.73 sq.m. Chronic Kidney Disease: Less than 60 mL/min/1.73 square meters End Stage Renal Disease: Less than 15 mL/min/1.73 square meters GFR/1.73 sq M.predicted among non-blacks MDRD (S/P/Bld) [Vol rate/Area] 87 ml/min/1.73sqm Invalid Interpretation Code AO Chemistry S Comment on above: Interpretive Data: GFR Population mean for , Non- Americans Ages 20-29 = 116 mL/min/1.73 sq.m. Ages 30-39 = 107 mL/min/1.73 sq.m. Ages 40-49 = 99 mL/min/1.73 sq.m. Ages 50-59 = 93 mL/min/1.73 sq.m. Ages 60-69 = 85 mL/min/1.73 sq.m. Ages 70+ = 75 mL/min/1.73 sq.m. Chronic Kidney Disease: Less than 60 mL/min/1.73 square meters End Stage Renal Disease: Less than 15 mL/min/1.73 square meters Globulin 3.0 G/dL Invalid Interpretation Code AO ADM SS Glucose [Mass/Vol] 136 mg/dL High 70 - 105 mg/dL AO ADM SS Hematocrit (Bld) [Volume fraction] 39.3 % Normal 37.0 - 47.0 % AO Workflow SS Hemoglobin (Bld) [Mass/Vol] 13.7 G/dL Normal 12.0 - 16.0 G/dL AO Workflow SS IgA [Mass/Vol] 98 mg/dL Normal 40 - 350 mg/dL ADM SS Comment on above: Interpretive Data: * *Note - New Reference Range in effect 19 IgG [Mass/Vol] 748 mg/dL Normal 650 - 1600 mg/dL ADM SS Comment on above: Interpretive Data: * *Note - New Reference Range in effect 19 IgM [Mass/Vol] 97 mg/dL Normal 50 - 300 mg/dL ADM Comment on above: Interpretive Data: * *Note - New Reference Range in effect 19 Lymphocyte, Absolute 1.2 103/mcL Normal 0.8 - 3 .9 10^3/mcL AO Workflow SS Lymphocytes/100 WBC (Bld) 12.1 % Normal 10.0 - 50.0 % AO Workflow SS MCH (RBC) [Entitic mass] 30.2 pg Normal 27.0 - 31.2 pg AO Workflow SS MCHC 35.0 G/dL Normal 33.0 - 37.0 G/dL AO Workflow SS MCV (RBC) [Entitic vol] 86.3 fL Normal 80.0 - 94.0 fL AO Workflow SS Monocyte, Absolute 0.6 103/mcL Normal 0.2 - 1.0 10^3/mcL AO Workflow SS Monocytes/100 WBC (Bld) 6.2 % Normal 1.7 - 13.0 % AO Workflow SS Neutrophil, Absolute 7.6 103/mcL High 2.9 - 6 .2 10^3/mcL AO Workflow SS Neutrophils/100 WBC (Bld) 77.7 % Normal 37.0 - 80.0 % AO Workflow SS Platelet mean volume (Bld) [Entitic vol] 9.8 fL Normal 7.4 - 10.4 fL AO Workflow SS Platelets (Bld) [#/Vol] 241 103/mcL Normal 130 - 400 10^3/mcL AO Workflow SS Potassium [Moles/Vol] 4.4 mmol/L Normal 3.5 - 5.1 mmol/L AO ADM SS Protein [Mass/Vol] 6.6 G/dL Normal 6.4 - 8.2 G/dL AO ADM SS RBC (Bld) [#/Vol] 4.55 106/mcL Normal 4.20 - 5.4 0 10^6/mcL AO Workflow SS Sodium [Moles/Vol] 144 mmol/L Normal 136 - 145 mmol/L AO ADM SS Urea nitrogen [Mass/Vol] 17 mg/dL Normal 7 - 18 mg/dL AO ADM SS Urea nitrogen/Creatinine [Mass ratio] 24 ratio Normal 7 - 27 ratio AO ADM SS WBC (Bld) [#/Vol] 9.8 103/mcL Normal 4.6 - 10.8 10^3/mcL AO Workflow SS VIDHon 07-19-2023 Vit. D 25-Hydroxy 36.0 ng/mL Normal [facility] ([place]) Comment on above: Result Comment: Inte rpretive Values Based on Total 25(OH) Vitamin D: Deficient <20 ng/mL Insufficient 20 - <30 ng/mL Sufficient 30-100 ng/mL Performed By: #### A MABEL, CBC, VIDH, CMP, GFR, ADIFF #### [address] [address] #### IMMUN #### [address] [address] MRI BRAIN W/ + W/O CONTRASTo n 07-03-2023 MRI BRAIN W/ + W/O CONTRAST ORIGINAL EXAMINATION: MRI OF THE BRAIN WITHOUT AND WITH CONTRAST 07/02/2023 3:06 pm TECHNIQUE: Multiplanar multisequence MRI of the head/brain was performed without and with the administration of intravenous contrast. 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 At the mid left frontal lobe, there is a 3 mm focus of FLAIR/T2 prolongation of the subcortical white matter. At the left occipital periventricular deep white matter, there is a 6 mm x 2 mm focus of FLAIR/T2 prolongation. At the right occipital deep white matter, there is a 4 mm by 2 mm focus of FLAIR/T2 prolongation, posterior to right atrium. There is amorphous small region of FLAIR/T2 prolongation of the periventricular white matter of the right occipital horn. Findings appear unchanged in size from prior study. There is no associated enhancement or diffusion restriction. There is no acute infarct. No mass effect or midline shift. No evidence of an acute intracranial hemorrhage. The ventricles and sulci are normal in size and configuration. The sellar/suprasellar regions appear unremarkable. The normal signal voids within the major intracranial vessels appear maintained. No abnormal focus of enhancement is seen within the brain. ORBITS: The visualized portion of the orbits demonstrate no acute abnormality. SINUSES: The visualized paranasal sinuses and mastoid air cells demonstrate no acute abnormality. BONES/SOFT TISSUES: The bone marrow signal intensity appears normal. The soft tissues demonstrate no acute abnormality. IMPRESSION: 1. There is no mass, hemorrhage, or acute infarct. 2. There are small white matter foci as profiled above which may be compatible with history of multiple sclerosis and appear unchanged size. There are no gross new white matter lesions. There is no evidence of active plaque. Interpreted by: Leif Gr Preliminary Report By: Leif Gr Electronically signed By Leif Gr Dictated Date: 07/03/2023 4:10:30 PM Prelim Date: 07/03/2023 4:33:34 PM Sign Date: 07/03/2023 4:33:34 PM Ordering Provider: OCTAVIANO oGnzalez [facility] ([place]) .Auto Diffon 01-29-2023 Basophil, Absolute 0.0 10 3/mcL Normal 0.0-0.2 [facility] ([place]) Comment on above: Performed By: #### A MABEL, CBC, VIDH, CMP, GFR, ADIFF #### [address] [address] #### IMMUN #### [address] [address] Basophils/100 WBC (Bld) 0.2 % Normal 0.0-2.5 [facility] ([place]) Comment on above: Performed By: #### A MABEL, CBC, VIDH, CMP, GFR, ADIFF #### [address] [address] #### IMMUN #### [address] [address] Eosinophil, Absolute 0.3 10 3/mcL Normal 0.0-0.4 [facility] ([place]) Comment on above: Performed By: #### A MABEL, CBC, VIDH, CMP, GFR, ADIFF #### [address] [address] #### IMMUN #### [address] [address] Eosinophils/100 WBC (Bld) 3.3 % Normal 0.0-7.0 [facility] ([place]) Comment on above: Performed By: #### A MABEL, CBC, VIDH, CMP, GFR, ADIFF #### [address] [address] #### IMMUN #### [address] [address] Lymphocyte, Absolute 1.2 10 3/mcL Normal 0.8-3.9 [facility] ([place]) Comment on above: Performed By: #### A MABEL, CBC, VIDH, CMP, GFR, ADIFF #### [address] [address] #### IMMUN #### [address] [address] Lymphocytes/100 WBC (Bld) 12.3 % Normal 10.0-50.0 [facility] ([place]) Comment on above: Performed By: #### A MABEL, CBC, VIDH, CMP, GFR, ADIFF #### [address] [address] #### IMMUN #### [address] [address] Monocyte, Absolute 0.6 10 3/mcL Normal 0.2-1.0 [facility] ([place]) Comment on above: Performed By: #### A MABEL, CBC, VIDH, CMP, GFR, ADIFF #### [address] [address] #### IMMUN #### [address] [address] Monocytes/100 WBC (Bld) 5.7 % Normal 1.7-13.0 [facility] ([place]) Comment on above: Performed By: #### A MABEL, CBC, VIDH, CMP, GFR, ADIFF #### [address] [address] #### IMMUN #### [address] [address] Neutrophils/100 WBC (Bld) 78.5 % Normal 37.0-80.0 [facility] ([place]) Comment on above: Performed By: #### A MABEL, CBC, VIDH, CMP, GFR, ADIFF #### [address] [address] #### IMMUN #### [address] [address] .GFRon 01-29-2023 GFR 96 ml/min/1.73sqm Normal [facility] ([place]) Comment on above: Result Comment: GFR Population mean for , Non- Americans Ages 20-29 = 116 mL/min/1.73 sq.m. Ages 30-39 = 107 mL/min/1.73 sq.m. Ages 40-49 = 99 mL/min/1.73 sq.m. Ages 50-59 = 93 mL/min/1.73 sq.m. Ages 60-69 = 85 mL/min/1.73 sq.m. Ages 70+ = 75 mL/min/1.73 sq.m. Chronic Kidney Disease: Less than 60 mL/min/1.73 square meters End Stage Renal Disease: Less than 15 mL/min/1.73 square meters Performed By: #### A MABEL, CBC, VIDH, CMP, GFR, ADIFF #### [address] [address] #### IMMUN #### [address] [address] GFR Non- 79 ml/min/1.73sqm Normal [facility] ([place]) Comment on above: Result Comment: GFR Population mean for , Non- Americans Ages 20-29 = 116 mL/min/1.73 sq.m. Ages 30-39 = 107 mL/min/1.73 sq.m. Ages 40-49 = 99 mL/min/1.73 sq.m. Ages 50-59 = 93 mL/min/1.73 sq.m. Ages 60-69 = 85 mL/min/1.73 sq.m. Ages 70+ = 75 mL/min/1.73 sq.m. Chronic Kidney Disease: Less than 60 mL/min/1.73 square meters End Stage Renal Disease: Less than 15 mL/min/1.73 square meters Performed By: #### A MABEL, CBC, VIDH, CMP, GFR, ADIFF #### [address] [address] #### IMMUN #### [address] [address] .NEUABSon 01-29-2023 Neutrophil, Absolute 7.9 10 3/mcL High 2.9-6.2 [facility] ([place]) Comment on above: Performed By: #### A MABEL, CBC, VIDH, CMP, GFR, ADIFF #### [place] [address] #### IMMUN #### [address] [address] B12on 01-29-2023 Cobalamin (Vitamin B12) [Mass/Vol] 503 pg/mL Normal 211-911 [facility] ([place]) Comment on above: Performed By: #### B 12 #### [address] [address] #### VIDH #### [address] [address] CBCon 01-29-2023 Erythrocyte distribution width (RBC) [Ratio] 14.7 % High 11.5-14.5 [facility] ([place]) Comment on above: Performed By: #### A MABEL, CBC, VIDH, CMP, GFR, ADIFF #### [address] [address] #### IMMUN #### [address] [address] Hematocrit (Bld) [Volume fraction] 40.5 % Normal 37.0-47.0 [facility] ([place]) Comment on above: Performed By: #### A MABEL, CBC, VIDH, CMP, GFR, ADIFF #### [address] [address] #### IMMUN #### [place] [address] Hgb 13.3 G/dL Normal 12.0-16.0 [facility] ([place]) Comment on above: Performed By: #### A MABEL, CBC, VIDH, CMP, GFR, ADIFF #### [place] [address] #### IMMUN #### [place] [address] MCH (RBC) [Entitic mass] 29.4 pg Normal 27.0-31.2 [facility] ([place]) Comment on above: Performed By: #### A MABEL, CBC, VIDH, CMP, GFR, ADIFF #### [place] [address] #### IMMUN #### [place] [address] MCHC 33.0 G/dL Normal 33.0-37.0 [facility] ([place]) Comment on above: Performed By: #### A MABEL, CBC, VIDH, CMP, GFR, ADIFF #### [place] [address] #### IMMUN #### [place] [address] MCV (RBC) [Entitic vol] 89.0 fL Normal 80.0-94.0 [facility] ([place]) Comment on above: Performed By: #### A MABEL, CBC, VIDH, CMP, GFR, ADIFF #### [place] [address] #### IMMUN #### [place] [address] Platelet 270 10 3/mcL Normal 130-400 [facility] ([place]) Comment on above: Performed By: #### A MABEL, CBC, VIDH, CMP, GFR, ADIFF #### [place] [address] #### IMMUN #### [address] [address] Platelet mean volume (Bld) [Entitic vol] 9.8 fL Normal 7.4-10.4 [facility] ([place]) Comment on above: Performed By: #### A MABEL, CBC, VIDH, CMP, GFR, ADIFF #### [place] [address] #### IMMUN #### [place] [address] RBC 4.55 10 6/mcL Normal 4.20-5.40 [facility] ([place]) Comment on above: Performed By: #### A MABEL, CBC, VIDH, CMP, GFR, ADIFF #### [place] [address] #### IMMUN #### [place] [address] WBC 10.0 10 3/mcL Normal 4.6-10.8 [facility] ([place]) Comment on above: Performed By: #### A MABEL, CBC, VIDH, CMP, GFR, ADIFF #### [place] [address] #### IMMUN #### [place] [address] CMPon 01-29-2023 Albumin Level 3.8 G/dL Normal 3.5-5.0 [facility] ([place]) Comment on above: Performed By: #### A MABEL, CBC, VIDH, CMP, GFR, ADIFF #### [place] [address] #### IMMUN #### [place] [address] Albumin/Globulin [Mass ratio] 1.2 {ratio} Normal 1.1-2.5 [facility] ([place]) Comment on above: Performed By: #### A MABEL, CBC, VIDH, CMP, GFR, ADIFF #### [address] [address] #### IMMUN #### [address] [address] ALP [Catalytic activity/Vol] 112 U/L Normal 40-135 [facility] ([place]) Comment on above: Performed By: #### A MABEL, CBC, VIDH, CMP, GFR, ADIFF #### [address] [address] #### IMMUN #### [address] [address] ALT [Catalytic activity/Vol] 21 U/L Normal 14-59 [facility] ([place]) Comment on above: Performed By: #### A MABEL, CBC, VIDH, CMP, GFR, ADIFF #### [place] [address] #### IMMUN #### [address] [address] AST [Catalytic activity/Vol] 12 U/L Normal 10-40 [facility] ([place]) Comment on above: Performed By: #### A MABEL, CBC, VIDH, CMP, GFR, ADIFF #### [address] [address] #### IMMUN #### [address] [address] Bili Total 0.6 mg/dL Normal 0.2-1.0 [facility] ([place]) Comment on above: Result Comment: Use of this assay is not recommended for patients undergoing treatment with eltrombopag due to the potential for falsely elevated results. Performed By: #### A MABEL, CBC, VIDH, CMP, GFR, ADIFF #### [address] [address] #### IMMUN #### [address] [address] BUN/Creatinine Ratio 14 ratio Normal 7-27 [facility] ([place]) Comment on above: Performed By: #### A MABEL, CBC, VIDH, CMP, GFR, ADIFF #### [address] [address] #### IMMUN #### [address] [address] Calcium [Mass/Vol] 9.5 mg/dL Normal 8.4-10.2 Counts include 234 beds at the [facility] ([place]) Comment on above: Performed By: #### A MABEL, CBC, VIDH, CMP, GFR, ADIFF #### [address] [address] #### IMMUN #### [address] [address] Chloride [Moles/Vol] 107 mmol/L Normal 98-107 [facility] ([place]) Comment on above: Performed By: #### A MABEL, CBC, VIDH, CMP, GFR, ADIFF #### [address] [address] #### IMMUN #### [address] [address] CO2 [Moles/Vol] 34 mmol/L High 22-29 [facility] ([place]) Comment on above: Performed By: #### A MABEL, CBC, VIDH, CMP, GFR, ADIFF #### [address] [address] #### IMMUN #### [address] [address] Creatinine [Mass/Vol] 0.77 mg/dL Normal 0.55-1.02 [facility] ([place]) Comment on above: Performed By: #### A MABEL, CBC, VIDH, CMP, GFR, ADIFF #### [address] [address] #### IMMUN #### [address] [address] Electrolyte Balance 7.0 mEq/L Normal 4.0-15.0 [facility] ([place]) Comment on above: Performed By: #### A MABEL, CBC, VIDH, CMP, GFR, ADIFF #### [address] [address] #### IMMUN #### [address] [address] Globulin 3.2 G/dL Normal [facility] ([place]) Comment on above: Performed By: #### A MABEL, CBC, VIDH, CMP, GFR, ADIFF #### [address] [address] #### IMMUN #### [address] [address] Glucose [Mass/Vol] 120 mg/dL High 70-105 Counts include 234 beds at the [facility] ([place]) Comment on above: Performed By: #### A MABEL, CBC, VIDH, CMP, GFR, ADIFF #### [address] [address] #### IMMUN #### [address] [address] Potassium [Moles/Vol] 4.8 mmol/L Normal 3.5-5.1 [facility] ([place]) Comment on above: Performed By: #### A MABEL, CBC, VIDH, CMP, GFR, ADIFF #### [address] [address] #### IMMUN #### [address] [address] Sodium [Moles/Vol] 148 mmol/L High 136-145 Counts include 234 beds at the [facility] ([place]) Comment on above: Performed By: #### A MABEL, CBC, VIDH, CMP, GFR, ADIFF #### [address] [address] #### IMMUN #### [address] [address] Total Protein 7.0 G/dL Normal 6.4-8.2 [facility] ([place]) Comment on above: Performed By: #### A MABEL, CBC, VIDH, CMP, GFR, ADIFF #### [address] [address] #### IMMUN #### [address] [address] Urea nitrogen [Mass/Vol] 11 mg/dL Normal 7-18 [facility] ([place]) Comment on above: Performed By: #### A MABEL, CBC, VIDH, CMP, GFR, ADIFF #### [address] [address] #### IMMUN #### [address] [address] IMMUNon 01-29-2023 IgA [Mass/Vol] 100 mg/dL Normal 40-350 [facility] ([place]) Comment on above: Result Comment: No te - New Reference Range in effect 19 Performed By: #### A MABEL, CBC, VIDH, CMP, GFR, ADIFF #### [address] [address] #### IMMUN #### [place] [address] IgG [Mass/Vol] 835 mg/dL Normal 650-1600 [facility] ([place]) Comment on above: Result Comment: No te - New Reference Range in effect 19 Performed By: #### A MABEL, CBC, VIDH, CMP, GFR, ADIFF #### [address] [address] #### IMMUN #### [address] [address] IgM [Mass/Vol] 105 mg/dL Normal 50-300 [facility] ([place]) Comment on above: Result Comment: No te - New Reference Range in effect 19 Performed By: #### A MABEL, CBC, VIDH, CMP, GFR, ADIFF #### [address] [address] #### IMMUN #### [address] [address] LABORATORYOrdered By: SYSTEM SYSTEM on 01-29-2023 25-hydroxyvitamin D3 [Mass/Vol] 30.9 ng/mL Invalid Interpretation Code AO ADM SS Comment on above: Interpretive Data: I nterpretive Values Based on Total 25(OH) Vitamin D: Deficient <20 ng/mL Insufficient 20 - <30 ng/mL Sufficient 30-100 ng/mL Albumin BCP dye [Mass/Vol] 3.8 G/dL Normal 3.5 - 5.0 G/dL AO ADM SS Albumin/Globulin [Mass ratio] 1.2 {ratio} Normal 1.1 - 2.5 ratio AO ADM SS ALP [Catalytic activity/Vol] 112 U/L Normal 40 - 135 U/L AO ADM SS ALT With P-5'-P [Catalytic activity/Vol] 21 U/L Normal 14 - 59 U/L AO ADM SS AST With P-5'-P [Catalytic activity/Vol] 12 U/L Normal 10 - 40 U/L AO ADM SS Basophil, Absolute 0.0 103/mcL Normal 0.0 - 0.2 10^3/mcL AO Workflow SS Basophils/100 WBC (Bld) 0.2 % Normal 0.0 - 2.5 % AO Workflow SS Bilirubin [Mass/Vol] 0.6 mg/dL Normal 0.2 - 1 .0 mg/dL AO ADM SS Comment on above: Interpretive Data: U se of this assay is not recommended for patients undergoing treatment with eltrombopag due to the potential for falsely elevated results. Calcium [Mass/Vol] 9.5 mg/dL Normal 8.4 - 10. 2 mg/dL AO ADM SS Chloride [Moles/Vol] 107 mmol/L Normal 98 - 10 7 mmol/L AO ADM SS CO2 [Moles/Vol] 34 mmol/L High 22 - 29 mmol/L AO ADM SS Cobalamin (Vitamin B12) [Mass/Vol] 503 pg/mL Normal 211 - 911 pg/mL AH ADM SS Creatinine [Mass/Vol] 0.77 mg/dL Normal 0.55 - 1.02 mg/dL AO ADM SS Electrolyte Balance 7.0 mEq/L Normal 4.0 - 15 .0 mEq/L AO ADM SS Eosinophil, Absolute 0.3 103/mcL Normal 0.0 - 0 .4 10^3/mcL AO Workflow SS Eosinophils/100 WBC (Bld) 3.3 % Normal 0.0 - 7.0 % AO Workflow SS Erythrocyte distribution width (RBC) [Ratio] 14.7 % High 11.5 - 14.5 % AO Workflow SS GFR/1.73 sq M.predicted among blacks MDRD (S/P/Bld) [Vol rate/Area] 96 ml/min/1.73sqm Invalid Interpretation Code AO Chemistry S Comment on above: Interpretive Data: GFR Population mean for , Non- Americans Ages 20-29 = 116 mL/min/1.73 sq.m. Ages 30-39 = 107 mL/min/1.73 sq.m. Ages 40-49 = 99 mL/min/1.73 sq.m. Ages 50-59 = 93 mL/min/1.73 sq.m. Ages 60-69 = 85 mL/min/1.73 sq.m. Ages 70+ = 75 mL/min/1.73 sq.m. Chronic Kidney Disease: Less than 60 mL/min/1.73 square meters End Stage Renal Disease: Less than 15 mL/min/1.73 square meters GFR/1.73 sq M.predicted among non-blacks MDRD (S/P/Bld) [Vol rate/Area] 79 ml/min/1.73sqm Invalid Interpretation Code AO Chemistry S Comment on above: Interpretive Data: GFR Population mean for , Non- Americans Ages 20-29 = 116 mL/min/1.73 sq.m. Ages 30-39 = 107 mL/min/1.73 sq.m. Ages 40-49 = 99 mL/min/1.73 sq.m. Ages 50-59 = 93 mL/min/1.73 sq.m. Ages 60-69 = 85 mL/min/1.73 sq.m. Ages 70+ = 75 mL/min/1.73 sq.m. Chronic Kidney Disease: Less than 60 mL/min/1.73 square meters End Stage Renal Disease: Less than 15 mL/min/1.73 square meters Globulin 3.2 G/dL Invalid Interpretation Code AO ADM SS Glucose [Mass/Vol] 120 mg/dL High 70 - 105 mg/dL AO ADM SS Hematocrit (Bld) [Volume fraction] 40.5 % Normal 37.0 - 47.0 % AO Workflow SS Hemoglobin (Bld) [Mass/Vol] 13.3 G/dL Normal 12.0 - 16.0 G/dL AO Workflow SS IgA [Mass/Vol] 100 mg/dL Normal 40 - 350 mg/dL ADM SS Comment on above: Interpretive Data: * *Note - New Reference Range in effect 19 IgG [Mass/Vol] 835 mg/dL Normal 650 - 1600 mg/dL ADM SS Comment on above: Interpretive Data: * *Note - New Reference Range in effect 19 IgM [Mass/Vol] 105 mg/dL Normal 50 - 300 mg/dL ADM SS Comment on above: Interpretive Data: * *Note - New Reference Range in effect 19 Lymphocyte, Absolute 1.2 103/mcL Normal 0.8 - 3 .9 10^3/mcL AO Workflow SS Lymphocytes/100 WBC (Bld) 12.3 % Normal 10.0 - 50.0 % AO Workflow SS MCH (RBC) [Entitic mass] 29.4 pg Normal 27.0 - 31.2 pg AO Workflow SS MCHC 33.0 G/dL Normal 33.0 - 37.0 G/dL AO Workflow SS MCV (RBC) [Entitic vol] 89.0 fL Normal 80.0 - 94.0 fL AO Workflow SS Monocyte, Absolute 0.6 103/mcL Normal 0.2 - 1.0 10^3/mcL AO Workflow SS Monocytes/100 WBC (Bld) 5.7 % Normal 1.7 - 13.0 % AO Workflow SS Neutrophil, Absolute 7.9 103/mcL High 2.9 - 6 .2 10^3/mcL AO Workflow SS Neutrophils/100 WBC (Bld) 78.5 % Normal 37.0 - 80.0 % AO Workflow SS Platelet mean volume (Bld) [Entitic vol] 9.8 fL Normal 7.4 - 10.4 fL AO Workflow SS Platelets (Bld) [#/Vol] 270 103/mcL Normal 130 - 400 10^3/mcL AO Workflow SS Potassium [Moles/Vol] 4.8 mmol/L Normal 3.5 - 5.1 mmol/L AO ADM SS Protein [Mass/Vol] 7.0 G/dL Normal 6.4 - 8.2 G/dL AO ADM SS RBC (Bld) [#/Vol] 4.55 106/mcL Normal 4.20 - 5.4 0 10^6/mcL AO Workflow SS Sodium [Moles/Vol] 148 mmol/L High 136 - 145 mmol/L AO ADM SS Urea nitrogen [Mass/Vol] 11 mg/dL Normal 7 - 18 mg/dL AO ADM SS Urea nitrogen/Creatinine [Mass ratio] 14 ratio Normal 7 - 27 ratio AO ADM SS WBC (Bld) [#/Vol] 10.0 103/mcL Normal 4.6 - 10.8 10^3/mcL AO Workflow SS VIDHon 01-29-2023 Vit. D 25-Hydroxy 30.9 ng/mL Normal [facility] ([place]) Comment on above: Result Comment: Inte rpretive Values Based on Total 25(OH) Vitamin D: Deficient <20 ng/mL Insufficient 20 - <30 ng/mL Sufficient 30-100 ng/mL Performed By: #### B 12 #### [facility] [address] [place] [address] #### VIDH #### [facility] [address] [place], [place] [address] Cervical or vagninal specime n microscopic examination by cytology stain (reported asOrdered By: Diane Landaverde on 11-10-2022 Cytology report Cyto stain Doc (Cvx/Vag) Comment . [facility] Comment on above: The Pap smear is a s creening test designed to aid in thedetection of premalignant and malignant conditions of theuterine cervix. It is not a diagnostic procedure andshould not be used as the sole means of detecting cervicalcancer. Both false-positive and false-negative reports dooccur. Detection in cervical specim en of any of human papilloma virus (HPV) 16, 18, 31, 33,Ordered By: Diane Landaverde on 11-10-2022 HPV 16+18+31+33+35+39+45+5 1+52+56+58+59+66+68 DNA Probe+sig amp Ql (Cvx) Negative Negative [facility] Comment on above: This nucleic acid am plification test detects fourteen high- risk HPV types (16,18,31,33,35,39,45,51,52,56,58,59,66,68)without differentiation. Laboratory - CytologyOrdered By: Diane Landaverde on 11-10-2022 Tugboat Captain Cyto stain Nom (Cvx/Vag) [ID] Comment . [facility] Comment on above: Michelle Conley, Cytot echnologist (ASCP) Laboratory - Miscellaneous t estsOrdered By: Diane Landaverde on 11-10-2022 Service comment (Unsp spec) [Interp] Comment . [facility] Comment on above: This liquid based Th inPrep(R) pap test was screened withthe use of an image guided system. Service comment (Unsp spec) [Interp] . . [facility] Liquid-based cerv Pap + CT/G C by ALFONSO w reflex to high-risk HPV for ASCUSOrdered By: Diane Landaverde on 11-10-2022 Cytology report Cyto stain.thin prep Doc (Cvx/Vag) Comment . [facility] Comment on above: Criteria not met, HP V Genotype not performed.Performed at: [facility] Cyto [id number] [place], [place] [id number] Director: Gustavo Cloud MD, Phone: [phone] at: - [facility] [id number] Director: Lee Ann Marin MD, Phone: [phone] at: =G - [facility] [address] [id number] Director: Lee Ann Marin MD, Phone: [phone] No Panel InformationOrdered By: Diane Landaverde on 11-10-2022 Pap Smear QC Review Comment . [facility] Comment on above: Bharat William totechnologist (ASC) Pathology report final diagnosis Narrative Comment . [facility] Comment on above: NEGATIVE FOR INTRAEP ITHELIAL LESION OR MALIGNANCY.THIS SPECIMEN WAS RESCREENED PART OF OUR STRATEGIC MANAGER PROGRAM. .GFRon 08-28-2022 GFR 117 ml/min/1.73sqm Normal [facility] ([place]) Comment on above: Result Comment: GFR Population mean for , Non- Americans Ages 20-29 = 116 mL/min/1.73 sq.m. Ages 30-39 = 107 mL/min/1.73 sq.m. Ages 40-49 = 99 mL/min/1.73 sq.m. Ages 50-59 = 93 mL/min/1.73 sq.m. Ages 60-69 = 85 mL/min/1.73 sq.m. Ages 70+ = 75 mL/min/1.73 sq.m. Chronic Kidney Disease: Less than 60 mL/min/1.73 square meters End Stage Renal Disease: Less than 15 mL/min/1.73 square meters Performed By: #### A MABEL, CBC, VIDH, CMP, GFR, ADIFF #### [address] [address] #### IMMUN #### [address] [address] GFR Non- 96 ml/min/1.73sqm Normal [facility] ([place]) Comment on above: Result Comment: GFR Population mean for , Non- Americans Ages 20-29 = 116 mL/min/1.73 sq.m. Ages 30-39 = 107 mL/min/1.73 sq.m. Ages 40-49 = 99 mL/min/1.73 sq.m. Ages 50-59 = 93 mL/min/1.73 sq.m. Ages 60-69 = 85 mL/min/1.73 sq.m. Ages 70+ = 75 mL/min/1.73 sq.m. Chronic Kidney Disease: Less than 60 mL/min/1.73 square meters End Stage Renal Disease: Less than 15 mL/min/1.73 square meters Performed By: #### A MABEL, CBC, VIDH, CMP, GFR, ADIFF #### [address] [address] #### IMMUN #### [address] [address] .Manual Diffon 08-28-2022 Bands 2.0 % Normal 0.0-5.0 [facility] ([place]) Comment on above: Performed By: #### A MABEL, CBC, VIDH, CMP, GFR, ADIFF #### [address] [address] #### IMMUN #### [address] [address] Basophil %, Manual 0.0 % Normal 0.0-2.5 Counts include 234 beds at the [facility] ([place]) Comment on above: Performed By: #### A MABEL, CBC, VIDH, CMP, GFR, ADIFF #### [place] [address] #### IMMUN #### [address] [address] Basophil, Abs Manual 0.0 10 3/mcL Normal 0.0-0.2 [facility] ([place]) Comment on above: Performed By: #### A MABEL, CBC, VIDH, CMP, GFR, ADIFF #### [place] [address] #### IMMUN #### [address] [address] Eosinophil %, Manual 4.0 % Normal 0.0-7.0 [facility] ([place]) Comment on above: Performed By: #### A MABEL, CBC, VIDH, CMP, GFR, ADIFF #### [place] [address] #### IMMUN #### [address] [address] Eosinophil, Abs Manual 0.3 10 3/mcL Normal 0.0-0.4 [facility] ([place]) Comment on above: Performed By: #### A MABEL, CBC, VIDH, CMP, GFR, ADIFF #### [place] [address] #### IMMUN #### [address] [address] Lymphocyte %, Manual 16.0 % Normal 10.0-50.0 [facility] ([place]) Comment on above: Performed By: #### A MABEL, CBC, VIDH, CMP, GFR, ADIFF #### [place] [address] #### IMMUN #### [address] [address] Lymphocyte, Abs Manual 1.0 10 3/mcL Normal 0.8-3.9 [facility] ([place]) Comment on above: Performed By: #### A MABEL, CBC, VIDH, CMP, GFR, ADIFF #### [place] [address] #### IMMUN #### [address] [address] Monocyte %, Manual 4.0 % Normal 1.7-13.0 Counts include 234 beds at the [facility] ([place]) Comment on above: Performed By: #### A MABEL, CBC, VIDH, CMP, GFR, ADIFF #### [address] [address] #### IMMUN #### [address] [address] Monocyte, Abs Manual 0.3 10 3/mcL Normal 0.2-1.0 [facility] ([place]) Comment on above: Performed By: #### A MABEL, CBC, VIDH, CMP, GFR, ADIFF #### [place] [address] #### IMMUN #### [place] [address] Neutrophil %, Manual 74.0 % Normal 37.0-80.0 [facility] ([place]) Comment on above: Performed By: #### A MABEL, CBC, VIDH, CMP, GFR, ADIFF #### [place] [address] #### IMMUN #### [address] [address] Neutrophil, Abs Manual 4.8 10 3/mcL Normal 2.9-6.2 [facility] ([place]) Comment on above: Performed By: #### A MABEL, CBC, VIDH, CMP, GFR, ADIFF #### [place] [address] #### IMMUN #### [address] [address] Nucleated RBC 0.0 /100 WBC Normal [facility] ([place]) Comment on above: Performed By: #### A MABEL, CBC, VIDH, CMP, GFR, ADIFF #### [place] [address] #### IMMUN #### [address] [address] .Morphon 08-28-2022 Hyperseg 1+ Normal [facility] ([place]) Comment on above: Performed By: #### A MABEL, CBC, VIDH, CMP, GFR, ADIFF #### [address] [address] #### IMMUN #### [address] [address] Large Platelets Few Normal [facility] ([place]) Comment on above: Performed By: #### A MABEL, CBC, VIDH, CMP, GFR, ADIFF #### [address] [address] #### IMMUN #### [place] [address] Platelet Estimate Normal Normal [facility] ([place]) Comment on above: Performed By: #### A MABEL, CBC, VIDH, CMP, GFR, ADIFF #### [address] [address] #### IMMUN #### [address] [address] A1Con 08-28-2022 HbA1c (Bld) [Mass fraction] 6.6 % High 4.3-6.4 [facility] ([place]) Comment on above: Performed By: #### A MABEL, CBC, VIDH, CMP, GFR, ADIFF #### [address] [address] #### IMMUN #### [address] [address] CBCon 08-28-2022 Erythrocyte distribution width (RBC) [Ratio] 14.6 % High 11.5-14.5 [facility] ([place]) Comment on above: Performed By: #### A MABEL, CBC, VIDH, CMP, GFR, ADIFF #### [address] [address] #### IMMUN #### [place] [address] Hematocrit (Bld) [Volume fraction] 37.5 % Normal 37.0-47.0 [facility] ([place]) Comment on above: Performed By: #### A MABEL, CBC, VIDH, CMP, GFR, ADIFF #### [place] [address] #### IMMUN #### [place] [address] Hgb 12.8 G/dL Normal 12.0-16.0 [facility] ([place]) Comment on above: Performed By: #### A MABEL, CBC, VIDH, CMP, GFR, ADIFF #### [place] [address] #### IMMUN #### [place] [address] MCH (RBC) [Entitic mass] 30.3 pg Normal 27.0-31.2 [facility] ([place]) Comment on above: Performed By: #### A MABEL, CBC, VIDH, CMP, GFR, ADIFF #### [place] [address] #### IMMUN #### [place] [address] MCHC 34.1 G/dL Normal 33.0-37.0 [facility] ([place]) Comment on above: Performed By: #### A MABEL, CBC, VIDH, CMP, GFR, ADIFF #### [place] [address] #### IMMUN #### [place] [address] MCV (RBC) [Entitic vol] 88.6 fL Normal 80.0-94.0 [facility] ([place]) Comment on above: Performed By: #### A MABEL, CBC, VIDH, CMP, GFR, ADIFF #### [place] [address] #### IMMUN #### [place] [address] Platelet 270 10 3/mcL Normal 130-400 [facility] ([place]) Comment on above: Performed By: #### A MABEL, CBC, VIDH, CMP, GFR, ADIFF #### [place] [address] #### IMMUN #### [place] [address] Platelet mean volume (Bld) [Entitic vol] 9.1 fL Normal 7.4-10.4 [facility] ([place]) Comment on above: Performed By: #### A MABEL, CBC, VIDH, CMP, GFR, ADIFF #### [place] [address] #### IMMUN #### [place] [address] RBC 4.23 10 6/mcL Normal 4.20-5.40 [facility] ([place] Comment on above: Performed By: #### A MABEL, CBC, VIDH, CMP, GFR, ADIFF #### [place] [address] #### IMMUN #### [place] [address] WBC 6.5 10 3/mcL Normal 4.6-10.8 [facility] ([place]) Comment on above: Performed By: #### A MABEL, CBC, VIDH, CMP, GFR, ADIFF #### [place] [address] #### IMMUN #### [place] [address] CMPon 08-28-2022 Albumin Level 3.9 G/dL Normal 3.5-5.0 [facility] ([place]) Comment on above: Performed By: #### A MABEL, CBC, VIDH, CMP, GFR, ADIFF #### [place] [id number] #### IMMUN #### [place] [address] Albumin/Globulin [Mass ratio] 1.4 {ratio} Normal 1.1-2.5 [facility] ([place]) Comment on above: Performed By: #### A MABEL, CBC, VIDH, CMP, GFR, ADIFF #### [address] [id number] #### IMMUN #### [address] [address] ALP [Catalytic activity/Vol] 103 U/L Normal 40-135 [facility] ([place]) Comment on above: Performed By: #### A MABEL, CBC, VIDH, CMP, GFR, ADIFF #### [address] [address] #### IMMUN #### [address] [address] ALT [Catalytic activity/Vol] 32 U/L Normal 14-59 [facility] ([place]) Comment on above: Performed By: #### A MABEL, CBC, VIDH, CMP, GFR, ADIFF #### [address] [id number] #### IMMUN #### [address] [address] AST [Catalytic activity/Vol] 25 U/L Normal 10-40 [facility] ([place]) Comment on above: Performed By: #### A MABEL, CBC, VIDH, CMP, GFR, ADIFF #### [address] [address] #### IMMUN #### [address] [address] Bili Total 0.9 mg/dL Normal 0.2-1.0 [facility] ([place]) Comment on above: Result Comment: Use of this assay is not recommended for patients undergoing treatment with eltrombopag due to the potential for falsely elevated results. Performed By: #### A MABEL, CBC, VIDH, CMP, GFR, ADIFF #### [address] [address] #### IMMUN #### [address] [address] BUN/Creatinine Ratio 20 ratio Normal 7-27 [facility] ([place]) Comment on above: Performed By: #### A MABEL, CBC, VIDH, CMP, GFR, ADIFF #### Shail[address] [address] #### IMMUN #### [address] [address] Calcium [Mass/Vol] 9.3 mg/dL Normal 8.4-10.2 Counts include 234 beds at the [facility] ([place]) Comment on above: Performed By: #### A MABEL, CBC, VIDH, CMP, GFR, ADIFF #### [address] [address] #### IMMUN #### [address] [address] Chloride [Moles/Vol] 104 mmol/L Normal 98-107 [facility] ([place]) Comment on above: Performed By: #### A MABEL, CBC, VIDH, CMP, GFR, ADIFF #### [address] [address] #### IMMUN #### [address] [address] CO2 [Moles/Vol] 30 mmol/L High 22-29 [facility] ([place]) Comment on above: Performed By: #### A MABEL, CBC, VIDH, CMP, GFR, ADIFF #### [place] [address] #### IMMUN #### [address] [address] Creatinine [Mass/Vol] 0.65 mg/dL Normal 0.55-1.02 [facility] ([place]) Comment on above: Performed By: #### A MABEL, CBC, VIDH, CMP, GFR, ADIFF #### [address] [address] #### IMMUN #### [address] [address] Electrolyte Balance 9.0 mEq/L Normal 4.0-15.0 [facility] ([place]) Comment on above: Performed By: #### A MABEL, CBC, VIDH, CMP, GFR, ADIFF #### [place] [address] #### IMMUN #### [address] [address] Globulin 2.7 G/dL Normal [facility] ([place]) Comment on above: Performed By: #### A MABEL, CBC, VIDH, CMP, GFR, ADIFF #### [address] [address] #### IMMUN #### [address] [address] Glucose [Mass/Vol] 127 mg/dL High 70-105 Counts include 234 beds at the [facility] ([place]) Comment on above: Performed By: #### A MABEL, CBC, VIDH, CMP, GFR, ADIFF #### [address] [address] #### IMMUN #### [address] [address] Potassium [Moles/Vol] 4.7 mmol/L Normal 3.5-5.1 [facility] ([place]) Comment on above: Performed By: #### A MABEL, CBC, VIDH, CMP, GFR, ADIFF #### [address] [address] #### IMMUN #### [address] [address] Sodium [Moles/Vol] 143 mmol/L Normal 136-145 Counts include 234 beds at the [facility] ([place]) Comment on above: Performed By: #### A MABEL, CBC, VIDH, CMP, GFR, ADIFF #### [address] [address] #### IMMUN #### [address] [address] Total Protein 6.6 G/dL Normal 6.4-8.2 [facility] ([place]) Comment on above: Performed By: #### A MABEL, CBC, VIDH, CMP, GFR, ADIFF #### [address] [address] #### IMMUN #### [address] [address] Urea nitrogen [Mass/Vol] 13 mg/dL Normal 7-18 [facility] ([place]) Comment on above: Performed By: #### A MABEL, CBC, VIDH, CMP, GFR, ADIFF #### [address] [address] #### IMMUN #### [address] [address] HFPon 08-28-2022 Bili Indirect 0.4 mg/dL Normal [facility] ([place]) Comment on above: Performed By: #### A MABEL, CBC, VIDH, CMP, GFR, ADIFF #### [place] [address] #### IMMUN #### [address] [address] Albumin Level 3.9 G/dL Normal 3.5-5.0 [facility] ([place]) Comment on above: Performed By: #### A MABEL, CBC, VIDH, CMP, GFR, ADIFF #### [place] [address] #### IMMUN #### [address] [address] Albumin/Globulin [Mass ratio] 1.3 {ratio} Normal 1.1-2.5 [facility] ([place]) Comment on above: Performed By: #### A MABEL, CBC, VIDH, CMP, GFR, ADIFF #### [place] [address] #### IMMUN #### [address] [address] ALP [Catalytic activity/Vol] 100 U/L Normal 40-135 [facility] ([place]) Comment on above: Performed By: #### A MABEL, CBC, VIDH, CMP, GFR, ADIFF #### [place] [address] #### IMMUN #### [address] [address] ALT [Catalytic activity/Vol] 28 U/L Normal 14-59 [facility] ([place]) Comment on above: Performed By: #### A MABEL, CBC, VIDH, CMP, GFR, ADIFF #### [address] [address] #### IMMUN #### [address] [address] AST [Catalytic activity/Vol] 23 U/L Normal 10-40 [facility] ([place]) Comment on above: Performed By: #### A MABEL, CBC, VIDH, CMP, GFR, ADIFF #### [address] [address] #### IMMUN #### [address] [address] Bili Direct 0.1 mg/dL Normal 0.0-0.2 [facility] ([place]) Comment on above: Result Comment: Use of this assay is not recommended for patients undergoing treatment with eltrombopag due to the potential for falsely elevated results. Performed By: #### A MABEL, CBC, VIDH, CMP, GFR, ADIFF #### [address] [address] #### IMMUN #### [address] [address] Bili Total 0.5 mg/dL Normal 0.2-1.0 [facility] ([place]) Comment on above: Result Comment: Use of this assay is not recommended for patients undergoing treatment with eltrombopag due to the potential for falsely elevated results. Performed By: #### A MABEL, CBC, VIDH, CMP, GFR, ADIFF #### [address] [address] #### IMMUN #### [address] [address] Globulin 3.1 G/dL Normal [facility] ([place]) Comment on above: Performed By: #### A MABEL, CBC, VIDH, CMP, GFR, ADIFF #### [address] [address] #### IMMUN #### [address] [address] Total Protein 7.0 G/dL Normal 6.4-8.2 [facility] ([place]) Comment on above: Performed By: #### A MABEL, CBC, VIDH, CMP, GFR, ADIFF #### [address] [address] #### IMMUN #### [address] [address] IMMUNon 08-28-2022 IgA [Mass/Vol] 99 mg/dL Normal 40-350 [facility] ([place]) Comment on above: Result Comment: No te - New Reference Range in effect 19 Performed By: #### A MABEL, CBC, VIDH, CMP, GFR, ADIFF #### [address] [address] #### IMMUN #### [place] [address] IgG [Mass/Vol] 787 mg/dL Normal 650-1600 [facility] ([place]) Comment on above: Result Comment: No te - New Reference Range in effect 19 Performed By: #### A MABEL, CBC, VIDH, CMP, GFR, ADIFF #### [address] [address] #### IMMUN #### [place] [address] IgM [Mass/Vol] 98 mg/dL Normal 50-300 [facility] ([place]) Comment on above: Result Comment: No te - New Reference Range in effect 19 Performed By: #### A MABEL, CBC, VIDH, CMP, GFR, ADIFF #### [address] [address] #### IMMUN #### [place] [address] LABORATORYOrdered By: SYSTEM SYSTEM on 08-28-2022 Albumin BCP dye [Mass/Vol] 3.9 G/dL Invalid Interpretation Code 3.5 - 5.0 G/dL AO ADM SS Albumin/Globulin [Mass ratio] 1.3 {ratio} Invalid Interpretation Code 1.1 - 2.5 ratio AO ADM SS ALP [Catalytic activity/Vol] 100 U/L Invalid Interpretation Code 40 - 135 U/L AO ADM SS ALT With P-5'-P [Catalytic activity/Vol] 28 U/L Invalid Interpretation Code 14 - 59 U/L AO ADM SS AST With P-5'-P [Catalytic activity/Vol] 23 U/L Invalid Interpretation Code 10 - 40 U/L AO ADM SS Bilirubin [Mass/Vol] 0.5 mg/dL Invalid Interpretation Code 0.2 - 1.0 mg/dL AO ADM SS Bilirubin.direct [Mass/Vol] 0.4 mg/dL Invalid Interpretation Code AO Chemistry S Bilirubin.direct [Mass/Vol] 0.1 mg/dL Invalid Interpretation Code 0.0 - 0.2 mg/dL AO ADM SS Globulin 3.1 G/dL Invalid Interpretation Code AO ADM SS HbA1c (Bld) [Mass fraction] 6.6 % Invalid Interpretation Code 4.3 - 6.4 % AO ADM SS Protein [Mass/Vol] 7.0 G/dL Invalid Interpretation Code 6.4 - 8.2 G/dL AO ADM SS LABORATORYOrdered By: Charli Huerta on 08-28-2022 Cholesterol [Mass/Vol] 129 mg/dL Invalid Interpretation Code 0 - 200 mg/dL AO ADM SS Cholesterol in HDL [Mass/Vol] 38 mg/dL Invalid Interpretation Code 40 - 60 mg/dL AO ADM SS Cholesterol in LDL [Mass/Vol] 66 mg/dL Invalid Interpretation Code 0 - 130 mg/dL AO ADM SS Triglyceride [Mass/Vol] 127 mg/dL Invalid Interpretation Code 0 - 150 mg/dL AO ADM SS LIPIDon 08-28-2022 Cholesterol [Mass/Vol] 129 mg/dL Normal 0-200 [facility] ([place]) Comment on above: Result Comment: Chol esterol Reference Interval: Less than 200 Desirable 200-239 Borderline high risk 240 and above High risk Performed By: #### A MABEL, CBC, VIDH, CMP, GFR, ADIFF #### [place] [address] [place], [place] [address] #### IMMUN #### [address] [address] Cholesterol in HDL [Mass/Vol] 38 mg/dL Low 40-60 [facility] ([place]) Comment on above: Performed By: #### A MABEL, CBC, VIDH, CMP, GFR, ADIFF #### [address] [address] #### IMMUN #### [address] [address] Cholesterol in LDL [Mass/Vol] 66 mg/dL Normal 0-130 [facility] ([place]) Comment on above: Performed By: #### A MABEL, CBC, VIDH, CMP, GFR, ADIFF #### [address] [address] #### IMMUN #### [address] [address] Triglyceride [Mass/Vol] 127 mg/dL Normal 0-150 [facility] ([place]) Comment on above: Result Comment: Trig lyceride Reference Interval: Less than 150 Normal 150-199 Borderline high risk 200-499 High risk 500 or higher Very high risk Performed By: #### A MABEL, CBC, VIDH, CMP, GFR, ADIFF #### [address] [address] #### IMMUN #### [address] [address] ADDIE (ANTINUCLEAR ANTIBODY) ( [id number])Ordered By: Senior Inspector on 05-18-2022 Nuclear Ab Ql (S) Positive Abnormal Compreh ensive Internal Medicine; [facility] Work Phone: Comment on above: PATIENT WAS FASTINGP ERFORMED BY: [facility] [id number] C-REACTIVE PROTEIN ([id number])Or dered By: Senior Inspector on 05-18-2022 CRP [Mass/Vol] 14 mg/L Abnormal 0-10 Comprehens lee [facility]; [facility] Work Phone: Comment on above: PATIENT WAS FASTINGP ERFORMED BY: [facility] [id number] CALCIFIDIOL (24492) VIT D 25 Ordered By: Senior Inspector on 05-18-2022 25-hydroxyvitamin D [Mass/Vol] 36.1 ng/mL Normal 30.0-100.0 [facility]; [facility] Work Phone: Comment on above: Vitamin D deficiency has been defined by the [place] [employer] and an Endocrine Society practice guideline as alevel of serum 25-OH vitamin D less than 20 ng/mL (1,2).The Endocrine Society went on to further define vitamin Dinsufficiency as a level between 21 and 29 ng/mL (2).1. IOM ([place] [employer]). 2010. Dietary reference intakes for calcium and D. [place]: The National Academies Press.2. Bernard MF, Daniel YEE, Dolores BARBA, et al. Evaluation, treatment, and prevention of vitamin D deficiency: an Endocrine Society clinical practice guideline. JCEM. 2010; 96(7):1911-30. PATIENT WAS FASTINGP ERFORMED BY: [employer] [place] [id number] CBC W/AUTO DIFF WBC (51197)O rdered By: Senior Inspector on 05-18-2022 Basophils (Bld) [#/Vol] 0.0 10*3/uL Normal 0.0-0.2 [facility]; [facility] Work Phone: Comment on above: PATIENT WAS FASTINGP ERFORMED BY: [employer] [place] [id number] Basophils/100 WBC (Bld) 0 % Normal [facility]; [facility] Work Phone: Comment on above: PATIENT WAS FASTINGP ERFORMED BY: NSC Rrqnqz1217 [address] s[address]bl[address] [place] [id number] Eosinophils (Bld) [#/Vol] 0.3 10*3/uL Normal 0.0-0.4 [facility]; [facility] Work Phone: Comment on above: PATIENT WAS FASTINGP ERFORMED BY: NSC Cmvwvu6413 [address] sambaashDublin [place] [id number] Eosinophils/100 WBC (Bld) 3 % Normal [facility]; [facility] Work Phone: Comment on above: PATIENT WAS FASTINGP ERFORMED BY: [employer]6370 [facility] [id number] Erythrocyte distribution width (RBC) [Ratio] 13.4 % Normal 11.7-15.4 [facility]; [facility] Work Phone: Comment on above: PATIENT WAS FASTINGP ERFORMED BY: JENNIFER Villalobos6370 [facility] [id number] Hematocrit (Bld) [Volume fraction] 42.9 % Normal 34.0-46.6 [facility]; [facility] Work Phone: Comment on above: PATIENT WAS FASTINGP ERFORMED BY: [facility] Rzcvrx2355 [facility] [id number] Hemoglobin (Bld) [Mass/Vol] 14.7 g/dL Normal 11.1-15.9 [facility]; [facility] Work Phone: Comment on above: PATIENT WAS FASTINGP ERFORMED BY: Millicent Pqobsc4425 [address] [facility] [id number] Immature granulocytes (Bld) [#/Vol] 0.0 10*3/uL Normal 0.0-0.1 [facility]; [facility] Work Phone: Comment on above: PATIENT WAS FASTINGP ERFORMED BY: JENNIFER Philiplin6[address] [facility]in [place] [id number] Immature granulocytes/100 WBC (Bld) 0 % Normal [facility]; [facility] Work Phone: Comment on above: PATIENT WAS FASTINGP ERFORMED BY: [facility] Wctwsq7115 [facility] [id number] Lymphocytes (Bld) [#/Vol] 1.4 10*3/uL Normal 0.7-3.1 [facility]; [facility] Work Phone: Comment on above: PATIENT WAS FASTINGP ERFORMED BY: [facility] Audqfv6527 [address] Chest[facility] Ridge Centerblin [place] [id number] Lymphocytes/100 WBC (Bld) 16 % Normal [facility]; [facility] Work Phone: Comment on above: PATIENT WAS FASTINGP ERFORMED BY: JENNIFER [facility] Gwtudd5769 Jenkins RoadDublin [place] [id number] MCH (RBC) [Entitic mass] 30.1 pg Normal 26.6-33.0 [facility]; [facility] Work Phone: Comment on above: PATIENT WAS FASTINGP ERFORMED BY: [facility] Bguhmc5573 Jenkins RoadDublin [place] [id number] MCHC (RBC) [Mass/Vol] 34.3 g/dL Normal 31.5-35.7 [facility] prehensive Internal Medicine; [facility] Work Phone: Comment on above: PATIENT WAS FASTINGP ERFORMED BY: [facility] Fsyzgj9550 Jenkins RoadDublin [place] [id number] MCV (RBC) [Entitic vol] 88 fL Normal 79-97 [facility]; [facility] Work Phone: Comment on above: PATIENT WAS FASTINGP ERFORMED BY: [facility] Kcxinu1163 [address] RoadDublin [place] [id number] Monocytes (Bld) [#/Vol] 0.5 10*3/uL Normal 0.1-0.9 [facility]; [facility] Work Phone: Comment on above: PATIENT WAS FASTINGP ERFORMED BY: [facility] Ofaodx3761 [address] RoadDublin [place] [id number] Monocytes/100 WBC (Bld) 6 % Normal [facility]; [facility] Work Phone: Comment on above: PATIENT WAS FASTINGP ERFORMED BY: [facility] Oqzxzl7267 [address] RoadDublin [place] [id number] Neutrophils (Bld) [#/Vol] 6.6 10*3/uL Normal 1.4-7.0 [facility]; [facility] Work Phone: Comment on above: PATIENT WAS FASTINGP ERFORMED BY: [facility] Juevjm2197 [address] RoadDublin [place] [id number] Neutrophils/100 WBC (Bld) 75 % Normal [facility]; [facility] Work Phone: Comment on above: PATIENT WAS FASTINGP ERFORMED BY: JENNIFER [facility] Nxvrwd8355 [address] RoadDublin [place] [id number] Platelets (Bld) [#/Vol] 327 10*3/uL Normal 150-450 [facility]; [facility] Work Phone: Comment on above: PATIENT WAS FASTINGP ERFORMED BY: CB [facility] Ongysq8080 [address] RoadDublin [place] [id number] RBC (Bld) [#/Vol] 4.88 10*6/uL Normal 3.77-5.28 [facility] SSD[facility]; [facility] Work Phone: Comment on above: PATIENT WAS FASTINGP ERFORMED BY: JENNIFER [facility] Otwupu7938 [address] RoadDublin [place] [id number] WBC (Bld) [#/Vol] 8.8 10*3/uL Normal 3.4-10.8 [facility]; [facility] Work Phone: Comment on above: PATIENT WAS FASTINGP ERFORMED BY: JENNIFER [facility] Cihynk8173 [address] RoadDublin [place] [id number] LIPID PANEL ([id number])Ordered B y: Senior Inspector on 05-18-2022 Cholesterol [Mass/Vol] 228 mg/dL Abnormal 100-199 [facility]; [facility] Work Phone: Comment on above: PATIENT WAS FASTINGP ERFORMED BY: CB [facility] Wdubki3139 [address] RoadDublin [place] [id number] Cholesterol in HDL [Mass/Vol] 48 mg/dL Normal [facility]; [facility] Work Phone: Comment on above: PATIENT WAS FASTINGP ERFORMED BY: CB [facility] Qjbhge1238 [address] RoadDublin [place] [id number] Triglyceride [Mass/Vol] 110 mg/dL Normal 0-149 [facility]; [facility] Work Phone: Comment on above: PATIENT WAS FASTINGP ERFORMED BY: CB [facility] Lqflvv3323 [address] RoadDublin [place] [id number] LIPID PANEL (80112) 20 mg/dL Normal 5-40 [facility]; [facility] Work Phone: Comment on above: PATIENT WAS FASTINGP ERFORMED BY: JENNIFER Millicentanali Zcrceh8121 [address] [facility] [id number] LIPID PANEL (31948) 160 mg/dL Abnormal 0-99 [facility]; [facility] Work Phone: Comment on above: PATIENT WAS FASTINGP ERFORMED BY: JENNIFER Labrichie PhilipJaflqj6929 [facility] [id number] LIPID PANEL (88725) 3.3 {ratio} Abnormal 0.0-3.2 [facility]; [facility] Work Phone: Comment on above: LDL/HDL Ratio Men Wo men 1/2 Avg.Risk 1.0 1.5 Avg.Risk 3.6 3.2 2X Avg.Risk 6.2 5.0 3X Avg.Risk 8.0 6.1 PATIENT WAS FASTINGP ERFORMED BY: JENNIFER Ricks Tbayud1485 [facility] [id number] METABOLIC PANEL, COMPREHENSI VE (60418)Ordered By: Senior Inspector on 05-18-2022 Albumin [Mass/Vol] 4.8 g/dL Normal 3.8-4.8 [facility]; [facility] Work Phone: Comment on above: PATIENT WAS FASTINGP ERFORMED BY: JENNIFER Labrichie PhilipCwkxtd4733 [facility] [id number] Albumin/Globulin [Mass ratio] 1.9 {ratio} Normal 1.2-2.2 [facility]; [facility] Work Phone: Comment on above: PATIENT WAS FASTINGP ERFORMED BY: JENNIFER Labrichie Aozwcs6883 [facility] [id number] ALP [Catalytic activity/Vol] 108 U/L Normal 44-121 [facility]; [facility] Work Phone: Comment on above: PATIENT WAS FASTINGP ERFORMED BY: JENNIFER [facility] Wpiiag3375 [facility] [id number] ALT [Catalytic activity/Vol] 14 U/L Normal 0-32 [facility]; [facility] Work Phone: Comment on above: PATIENT WAS FASTINGP ERFORMED BY: CB [facility] Taxixx1304 [address] RoadDublin [place] [id number] AST [Catalytic activity/Vol] 15 U/L Normal 0-40 [facility]; [facility] Work Phone: Comment on above: PATIENT WAS FASTINGP ERFORMED BY: CB [facility] Bytiop2849 [address] RoadDublin [place] [id number] Bilirubin [Mass/Vol] 0.3 mg/dL Normal 0.0-1.2 Comp rehensive Internal Medicine; [facility] Work Phone: Comment on above: PATIENT WAS FASTINGP ERFORMED BY: CB [facility] Uncmmb1521 [address] RoadDublin [place] [id number] Calcium [Mass/Vol] 9.9 mg/dL Normal 8.7-10.2 [facility]; [facility] Work Phone: Comment on above: PATIENT WAS FASTINGP ERFORMED BY: CB [facility] Fptlag6239 [address]Dublin [place] [id number] Chloride [Moles/Vol] 101 mmol/L Normal 96-106 Comp rehensive Internal Medicine; [facility] Work Phone: Comment on above: PATIENT WAS FASTINGP ERFORMED BY: CB [facility] Butbic6229 [address] RoadD[address] [place] [id number] CO2 [Moles/Vol] 24 mmol/L Normal 20-29 [facility]; [facility] Work Phone: Comment on above: PATIENT WAS FASTINGP ERFORMED BY: CB [facility] Nbihgk2284 [address] RoadDublin [place] [id number] Creatinine [Mass/Vol] 0.68 mg/dL Normal 0.57-1.00 [facility]; [facility] Work Phone: Comment on above: PATIENT WAS FASTINGP ERFORMED BY: CB [facility] Tawelb6347 [address] RoadDublin [place] [id number] GFR/1.73 sq M.predicted among non-blacks MDRD (S/P/Bld) [Vol rate/Area] 106 mL/min/{1.73_m2} Normal Comprehensi ve Internal Medicine; [facility] Work Phone: Comment on above: PATIENT WAS FASTINGP ERFORMED BY: [facility] Cleccj1414 [address]Dublin [place] [id number] Globulin (S) [Mass/Vol] 2.5 g/dL Normal 1.5-4.5 [facility]; [facility] Work Phone: Comment on above: PATIENT WAS FASTINGP ERFORMED BY: [facility] Gxcvbf7306 [address] RoadDublin [place] [id number] Glucose [Mass/Vol] 118 mg/dL Abnormal 70-99 [facility]; [facility] Work Phone: Comment on above: PATIENT WAS FASTINGP ERFORMED BY: [facility] Svwngt6422 [address] RoadDublin [place] [id number] Potassium [Moles/Vol] 4.7 mmol/L Normal 3.5-5.2 [facility] prehensive Internal Medicine; [facility] Work Phone: Comment on above: PATIENT WAS FASTINGP ERFORMED BY: [facility] Eqnoga0733 [address] RoadDublin [place] [id number] Protein [Mass/Vol] 7.3 g/dL Normal 6.0-8.5 [facility]; [facility] Work Phone: Comment on above: PATIENT WAS FASTINGP ERFORMED BY: [facility] Hudtfv8377 [address] RoadDublin [place] [id number] Sodium [Moles/Vol] 142 mmol/L Normal 134-144 [facility]; [facility] Work Phone: Comment on above: PATIENT WAS FASTINGP ERFORMED BY: [facility] Vdvudx9346 [address] RoadDublin [place] [id number] Urea nitrogen [Mass/Vol] 13 mg/dL Normal 6-24 [facility]; [facility] Work Phone: Comment on above: PATIENT WAS FASTINGP ERFORMED BY: JENNIFER [facility] Peigdw7812 [address] RoadDublin [place] [id number] Urea nitrogen/Creatinine [Mass ratio] 19 mg/mg Normal 9-23 [facility]; [facility] Work Phone: Comment on above: PATIENT WAS FASTINGP ERFORMED BY: CB [facility] Okswkr4308 [address] RoadDublin [place] [id number] MICROALBUMINOrdered By: Syst em Cotton Picker Operator on 05-18-2022 Albumin DL <= 20 mg/L (U) [Mass/Vol] mg/dL Normal [facility]; [facility] Work Phone: Comment on above: PATIENT WAS FASTINGP ERFORMED BY: JENNIFER [facility] Dykkkd3957 [address] RoadDublin [place] [id number] Albumin/Creatinine (U) [Mass ratio] <10 Normal 0-29 [facility]; [facility] Work Phone: Comment on above: Normal: 0 - 29 Moder ately increased: 30 - 300 Severely increased: >300 PATIENT WAS FASTINGP ERFORMED BY: JENNIFER [facility] Hltwhk8243 [address] [place] [id number] Creatinine (U) [Mass/Vol] 30.6 mg/dL Normal [facility]; [facility] Work Phone: Comment on above: PATIENT WAS FASTINGP ERFORMED BY: JENNIFER [facility] Rxrnzd8812 [address] RoadDublin [place] [id number] SED RATE ERYTHROCYTE ([id number]) Ordered By: Senior Inspector on 05-18-2022 ESR (Bld) [Velocity] 13 mm/h Normal 0-40 Comp rehensive Internal Medicine; [facility] Work Phone: Comment on above: PATIENT WAS FASTINGP ERFORMED BY: CB [facility] Imaapy9109 [address]Dublin [place] [id number] TSH ([id number])Ordered By: Syste m Cotton Picker Operator on 05-18-2022 TSH Qn 1.380 {uIU/mL} Normal 0.450-4.500 Comprehen [facility]; [facility] Work Phone: Comment on above: PATIENT WAS FASTINGP ERFORMED BY: JENNIFER Villalobos6370 [address] RoadD[address] [place] [id number] URINALYSIS, W/ MICRO ([id number]) Ordered By: Senior Inspector on 05-18-2022 Appearance (U) Clear Normal Comprehens lee Internal Medicine; [facility] Work Phone: Comment on above: PATIENT WAS FASTINGP ERFORMED BY: JENNIFER Villalobos6370 [address]Dublin [place] [id number] Bilirubin Ql (U) Negative Normal Comprehe nsive [facility]; [facility] Work Phone: Comment on above: PATIENT WAS FASTINGP ERFORMED BY: JENNIFER Villalobos6370 [address] RoadDublin [place] [id number] Color (U) Yellow Normal [facility]; [facility] Work Phone: Comment on above: PATIENT WAS FASTINGP ERFORMED BY: JENNIFER Villalobos6[address] RoadDublin [place] [id number] Glucose Ql (U) Negative Normal Comprehens lee [facility]; [facility] Work Phone: Comment on above: PATIENT WAS FASTINGP ERFORMED BY: JENNIFER Villalobos6[address] RoadDublin [place] [id number] Hemoglobin Ql (U) Negative Normal Compreh ensive [facility]; [facility] Work Phone: Comment on above: PATIENT WAS FASTINGP ERFORMED BY: JENNIFER Villalobos6[address] RoadDublin [place] [id number] Ketones Ql (U) Negative Normal Comprehens lee [facility]; [facility] Work Phone: Comment on above: PATIENT WAS FASTINGP ERFORMED BY: JENNIFER [id number] RoadDublin [place] [id number] Leukocyte esterase Test strip Ql (U) 3+ Abnormal [facility]; [facility] Work Phone: Comment on above: PATIENT WAS FASTINGP ERFORMED BY: JENNIFER Philiplin6[address] RoadDublin [place] [id number] Microscopic observation LM Nom (Urine sed) See below: Normal [facility]; [facility] Work Phone: Comment on above: Microscopic was sung cated and was performed. PATIENT WAS FASTINGP ERFORMED BY: JENNIFER [facility] [id number] [address] RoadDublin [place] [id number] Nitrite Ql (U) Negative Normal Comprehens [facility]; [facility] Work Phone: Comment on above: PATIENT WAS FASTINGP ERFORMED BY: CB [facility] [id number] RoadDublin [place] [id number] pH (U) 6.0 [pH] Normal 5.0-7.5 [facility]; [facility] Work Phone: Comment on above: PATIENT WAS FASTINGP ERFORMED BY: [facility] [id number] RoadDublin [place] [id number] Protein Ql (U) Negative Normal Comprehens le[facility]; [facility] Work Phone: Comment on above: PATIENT WAS FASTINGP ERFORMED BY: [facility] [id number] [address] RoadDublin [place] [id number] Specific gravity (U) [Rel density] 1.012 1 Normal 1.005-1.030 [facility]; [facility] Work Phone: Comment on above: PATIENT WAS FASTINGP ERFORMED BY: [facility] [id number] [address] RoadDublin [place] [id number] Urobilinogen (U) [Mass/Vol] 0.2 mg/dL Normal 0.2-1.0 [facility]; [facility] Work Phone: Comment on above: PATIENT WAS FASTINGP ERFORMED BY: [facility] [id number] Jenkins RoadDublin [place] [id number] VITAMIN B-12 (CYANOCOBALAMIN ) ([id number])Ordered By: Senior Inspector on 05-18-2022 Cobalamin (Vitamin B12) [Mass/Vol] 607 pg/mL Normal 232-1245 [facility]; [facility] Work Phone: Comment on above: PATIENT WAS FASTINGP ERFORMED BY: JENNIFER [facility] [id number] [facility] [id number] LABORATORYOrdered By: SYSTEM SYSTEM on 03-23-2022 Albumin BCP dye [Mass/Vol] 3.9 G/dL Invalid Interpretation Code 3.5 - 5.0 G/dL AO ADM SS Albumin/Globulin [Mass ratio] 1.2 {ratio} Invalid Interpretation Code 1.1 - 2.5 ratio AO ADM SS ALP [Catalytic activity/Vol] 120 U/L Invalid Interpretation Code 40 - 135 U/L AO ADM SS ALT With P-5'-P [Catalytic activity/Vol] 20 U/L Invalid Interpretation Code 14 - 59 U/L AO ADM SS AST With P-5'-P [Catalytic activity/Vol] 17 U/L Invalid Interpretation Code 10 - 40 U/L AO ADM SS Bilirubin [Mass/Vol] 0.7 mg/dL Invalid Interpretation Code 0.2 - 1.0 mg/dL AO ADM SS Calcium [Mass/Vol] 9.0 mg/dL Invalid Interpretation Code 8.4 - 10.2 mg/dL AO ADM SS Chloride [Moles/Vol] 102 mmol/L Invalid Interpretation Code 98 - 107 mmol/L AO ADM SS CO2 [Moles/Vol] 33 mmol/L Invalid Interpretation Code 22 - 29 mmol/L AO ADM SS Creatinine [Mass/Vol] 0.70 mg/dL Invalid Interpretation Code 0.55 - 1.02 mg/dL AO ADM SS Electrolyte Balance 6.0 mEq/L Invalid Interpretation Code 4.0 - 15.0 mEq/L AO ADM SS GFR 107 ml/min/1.73sqm Invalid Interpretation Code AO Chemistry S GFR Non- 89 ml/min/1.73sqm Invalid Interpretation Code AO Chemistry S Globulin 3.2 G/dL Invalid Interpretation Code AO ADM SS Glucose [Mass/Vol] 116 mg/dL Invalid Interpretation Code 70 - 105 mg/dL AO ADM SS Potassium [Moles/Vol] 4.6 mmol/L Invalid Interpretation Code 3.5 - 5.1 mmol/L AO ADM SS Protein [Mass/Vol] 7.1 G/dL Invalid Interpretation Code 6.4 - 8.2 G/dL AO ADM SS Sodium [Moles/Vol] 141 mmol/L Invalid Interpretation Code 136 - 145 mmol/L AO ADM SS Urea nitrogen [Mass/Vol] 16 mg/dL Invalid Interpretation Code 7 - 18 mg/dL AO ADM SS Urea nitrogen/Creatinine [Mass ratio] 23 ratio Invalid Interpretation Code 7 - 27 ratio AO ADM SS LABORATORYOrdered By: Paulo Braswell on 03-23-2022 Basophil, Absolute 0.0 103/mcL Invalid Interpretation Code 0.0 - 0.2 10^3/mcL AO Workflow SS Basophils/100 WBC (Bld) 0.3 % Invalid Interpretation Code 0.0 - 2.5 % AO Workflow SS Eosinophil, Absolute 0.3 103/mcL Invalid Interpretation Code 0.0 - 0.4 10^3/mcL AO Workflow SS Eosinophils/100 WBC (Bld) 3.0 % Invalid Interpretation Code 0.0 - 7.0 % AO Workflow SS Erythrocyte distribution width (RBC) [Ratio] 14.4 % Invalid Interpretation Code 11.5 - 14.5 % AO Workflow SS Hematocrit (Bld) [Volume fraction] 40.0 % Invalid Interpretation Code 37.0 - 47.0 % AO Workflow SS Hemoglobin (Bld) [Mass/Vol] 13.6 G/dL Invalid Interpretation Code 12.0 - 16.0 G/dL AO Workflow SS Lymphocyte, Absolute 1.6 103/mcL Invalid Interpretation Code 0.8 - 3.9 10^3/mcL AO Workflow SS Lymphocytes/100 WBC (Bld) 14.8 % Invalid Interpretation Code 10.0 - 50.0 % AO Workflow SS MCH (RBC) [Entitic mass] 29.9 pg Invalid Interpretation Code 27.0 - 31.2 pg AO Workflow SS MCHC 34.1 G/dL Invalid Interpretation Code 33.0 - 37.0 G/dL AO Workflow SS MCV (RBC) [Entitic vol] 87.7 fL Invalid Interpretation Code 80.0 - 94.0 fL AO Workflow SS Monocyte, Absolute 0.6 103/mcL Invalid Interpretation Code 0.2 - 1.0 10^3/mcL AO Workflow SS Monocytes/100 WBC (Bld) 5.6 % Invalid Interpretation Code 1.7 - 13.0 % AO Workflow SS Neutrophil, Absolute 8.3 103/mcL Invalid Interpretation Code 2.9 - 6.2 10^3/mcL AO Workflow SS Neutrophils/100 WBC (Bld) 76.3 % Invalid Interpretation Code 37.0 - 80.0 % AO Workflow SS Platelet mean volume (Bld) [Entitic vol] 9.8 fL Invalid Interpretation Code 7.4 - 10.4 fL AO Workflow SS Platelets (Bld) [#/Vol] 314 103/mcL Invalid Interpretation Code 130 - 400 10^3/mcL AO Workflow SS RBC (Bld) [#/Vol] 4.56 106/mcL Invalid Interpretation Code 4.20 - 5.40 10^6/mcL AO Workflow SS WBC (Bld) [#/Vol] 10.8 103/mcL Invalid Interpretation Code 4.6 - 10.8 10^3/mcL AO Workflow SS LABORATORYOrdered By: Sony Robledo on 08-11-2021 Albumin BCP dye [Mass/Vol] 3.8 G/dL Invalid Interpretation Code 3.5 - 5.0 G/dL AO ADM SS Albumin/Globulin [Mass ratio] 1.4 {ratio} Invalid Interpretation Code 1.1 - 2.5 ratio AO ADM SS ALP [Catalytic activity/Vol] 97 U/L Invalid Interpretation Code 40 - 135 U/L AO ADM SS ALT With P-5'-P [Catalytic activity/Vol] 16 U/L Invalid Interpretation Code 14 - 59 U/L AO ADM SS AST With P-5'-P [Catalytic activity/Vol] 11 U/L Invalid Interpretation Code 10 - 40 U/L AO ADM SS Bilirubin [Mass/Vol] 0.4 mg/dL Invalid Interpretation Code 0.2 - 1.0 mg/dL AO ADM SS Calcium [Mass/Vol] 8.7 mg/dL Invalid Interpretation Code 8.4 - 10.2 mg/dL AO ADM SS Chloride [Moles/Vol] 105 mmol/L Invalid Interpretation Code 98 - 107 mmol/L AO ADM SS CO2 [Moles/Vol] 31 mmol/L Invalid Interpretation Code 22 - 29 mmol/L AO ADM SS Creatinine [Mass/Vol] 0.75 mg/dL Invalid Interpretation Code 0.55 - 1.02 mg/dL AO ADM SS Electrolyte Balance 6.0 mEq/L Invalid Interpretation Code 4.0 - 15.0 mEq/L AO ADM SS Globulin 2.8 G/dL Invalid Interpretation Code AO ADM SS Glucose [Mass/Vol] 115 mg/dL Invalid Interpretation Code 70 - 105 mg/dL AO ADM SS Potassium [Moles/Vol] 4.3 mmol/L Invalid Interpretation Code 3.5 - 5.1 mmol/L AO ADM SS Protein [Mass/Vol] 6.6 G/dL Invalid Interpretation Code 6.4 - 8.2 G/dL AO ADM SS Sodium [Moles/Vol] 142 mmol/L Invalid Interpretation Code 136 - 145 mmol/L AO ADM SS Urea nitrogen [Mass/Vol] 14 mg/dL Invalid Interpretation Code 7 - 18 mg/dL AO ADM SS Urea nitrogen/Creatinine [Mass ratio] 19 ratio Invalid Interpretation Code 7 - 27 ratio AO ADM SS LABORATORYOrdered By: Denia Sifuentes on 08-11-2021 Basophil, Absolute 0.0 103/mcL Invalid Interpretation Code 0.0 - 0.2 10^3/mcL AO Workflow SS Basophils/100 WBC (Bld) 0.5 % Invalid Interpretation Code 0.0 - 2.5 % AO Workflow SS Eosinophil, Absolute 0.5 103/mcL Invalid Interpretation Code 0.0 - 0.4 10^3/mcL AO Workflow SS Eosinophils/100 WBC (Bld) 4.8 % Invalid Interpretation Code 0.0 - 7.0 % AO Workflow SS Erythrocyte distribution width (RBC) [Ratio] 14.4 % Invalid Interpretation Code 11.5 - 14.5 % AO Workflow SS Hematocrit (Bld) [Volume fraction] 39.3 % Invalid Interpretation Code 37.0 - 47.0 % AO Workflow SS Hemoglobin (Bld) [Mass/Vol] 13.4 G/dL Invalid Interpretation Code 12.0 - 16.0 G/dL AO Workflow SS Lymphocyte, Absolute 1.3 103/mcL Invalid Interpretation Code 0.8 - 3.9 10^3/mcL AO Workflow SS Lymphocytes/100 WBC (Bld) 13.3 % Invalid Interpretation Code 10.0 - 50.0 % AO Workflow SS MCH (RBC) [Entitic mass] 30.1 pg Invalid Interpretation Code 27.0 - 31.2 pg AO Workflow SS MCHC 34.0 G/dL Invalid Interpretation Code 33.0 - 37.0 G/dL AO Workflow SS MCV (RBC) [Entitic vol] 88.4 fL Invalid Interpretation Code 80.0 - 94.0 fL AO Workflow SS Monocyte, Absolute 0.6 103/mcL Invalid Interpretation Code 0.2 - 1.0 10^3/mcL AO Workflow SS Monocytes/100 WBC (Bld) 6.2 % Invalid Interpretation Code 1.7 - 13.0 % AO Workflow SS Neutrophil, Absolute 7.3 103/mcL Invalid Interpretation Code 2.9 - 6.2 10^3/mcL AO Workflow SS Neutrophils/100 WBC (Bld) 75.2 % Invalid Interpretation Code 37.0 - 80.0 % AO Workflow SS Platelet mean volume (Bld) [Entitic vol] 9.6 fL Invalid Interpretation Code 7.4 - 10.4 fL AO Workflow SS Platelets (Bld) [#/Vol] 250 103/mcL Invalid Interpretation Code 130 - 400 10^3/mcL AO Workflow SS RBC (Bld) [#/Vol] 4.44 106/mcL Invalid Interpretation Code 4.20 - 5.40 10^6/mcL AO Workflow SS WBC 9.7 103/mcL Invalid Interpretation Code 4.6 - 10.8 10^3/mcL AO Workflow SS LABORATORYOrdered By: SYSTEM SYSTEM on 08-11-2021 GFR 100 ml/min/1.73sqm Invalid Interpretation Code AO Chemistry S GFR Non- 82 ml/min/1.73sqm Invalid Interpretation Code AO Chemistry S Monocyte distribution width Auto (Bld) [Entitic vol] Not Performed 1 *NA* (08/11/21 10:25 AM) Invalid Interpretation Code 0.00 - 20.00 AO Hematology S Comment on above: Result Comment: MDW testing performed only on adult ER patients between the ages of 18-89 years. LABORATORYOrdered By: Rose Saunders on 08-02-2021 Albumin BCP dye [Mass/Vol] 3.9 G/dL Invalid Interpretation Code 3.5 - 5.0 G/dL AO ADM SS Albumin/Globulin [Mass ratio] 1.3 {ratio} Invalid Interpretation Code 1.1 - 2.5 ratio AO ADM SS ALP [Catalytic activity/Vol] 99 U/L Invalid Interpretation Code 40 - 135 U/L AO ADM SS ALT With P-5'-P [Catalytic activity/Vol] 15 U/L Invalid Interpretation Code 14 - 59 U/L AO ADM SS AST With P-5'-P [Catalytic activity/Vol] 12 U/L Invalid Interpretation Code 10 - 40 U/L AO ADM SS Bilirubin [Mass/Vol] 0.5 mg/dL Invalid Interpretation Code 0.2 - 1.0 mg/dL AO ADM SS Calcium [Mass/Vol] 9.6 mg/dL Invalid Interpretation Code 8.4 - 10.2 mg/dL AO ADM SS Chloride [Moles/Vol] 104 mmol/L Invalid Interpretation Code 98 - 107 mmol/L AO ADM SS Cholesterol [Mass/Vol] 182 mg/dL Invalid Interpretation Code 0 - 200 mg/dL AO ADM SS Cholesterol in HDL [Mass/Vol] 40 mg/dL Invalid Interpretation Code 40 - 60 mg/dL AO ADM SS Cholesterol in LDL [Mass/Vol] 111 mg/dL Invalid Interpretation Code 0 - 130 mg/dL AO ADM SS CO2 [Moles/Vol] 32 mmol/L Invalid Interpretation Code 22 - 29 mmol/L AO ADM SS Creatinine [Mass/Vol] 0.79 mg/dL Invalid Interpretation Code 0.55 - 1.02 mg/dL AO ADM SS Electrolyte Balance 7.0 mEq/L Invalid Interpretation Code 4.0 - 15.0 mEq/L AO ADM SS Free T4 [Mass/Vol] 0.99 ng/dL Invalid Interpretation Code 0.76 - 1.46 ng/dL AO ADM SS Globulin 2.9 G/dL Invalid Interpretation Code AO ADM SS Glucose [Mass/Vol] 134 mg/dL Invalid Interpretation Code 70 - 105 mg/dL AO ADM SS Potassium [Moles/Vol] 4.9 mmol/L Invalid Interpretation Code 3.5 - 5.1 mmol/L AO ADM SS Protein [Mass/Vol] 6.8 G/dL Invalid Interpretation Code 6.4 - 8.2 G/dL AO ADM SS Sodium [Moles/Vol] 143 mmol/L Invalid Interpretation Code 136 - 145 mmol/L AO ADM SS Triglyceride [Mass/Vol] 156 mg/dL Invalid Interpretation Code 0 - 150 mg/dL AO ADM SS TSH Qn 2.13 m[IU]/L Invalid Interpretation Code 0.36 - 3.74 mcIU/mL AO ADM SS Urea nitrogen [Mass/Vol] 12 mg/dL Invalid Interpretation Code 7 - 18 mg/dL AO ADM SS Urea nitrogen/Creatinine [Mass ratio] 15 ratio Invalid Interpretation Code 7 - 27 ratio AO ADM SS Uric Acid Lvl 5.4 mg/dL Invalid Interpretation Code 2.6 - 6.2 mg/dL AO ADM SS Vit. D 25-Hydroxy 41.5 ng/mL Invalid Interpretation Code AO ADM SS LABORATORYOrdered By: Denia Sifuentes on 08-02-2021 Basophil, Absolute 0.0 103/mcL Invalid Interpretation Code 0.0 - 0.2 10^3/mcL AO Workflow SS Basophils/100 WBC (Bld) 0.4 % Invalid Interpretation Code 0.0 - 2.5 % AO Workflow SS Eosinophil, Absolute 0.5 103/mcL Invalid Interpretation Code 0.0 - 0.4 10^3/mcL AO Workflow SS Eosinophils/100 WBC (Bld) 5.6 % Invalid Interpretation Code 0.0 - 7.0 % AO Workflow SS Erythrocyte distribution width (RBC) [Ratio] 14.1 % Invalid Interpretation Code 11.5 - 14.5 % AO Workflow SS Hematocrit (Bld) [Volume fraction] 40.6 % Invalid Interpretation Code 37.0 - 47.0 % AO Workflow SS Hgb 13.9 G/dL Invalid Interpretation Code 12.0 - 16.0 G/dL AO Workflow SS Lymphocyte, Absolute 1.2 103/mcL Invalid Interpretation Code 0.8 - 3.9 10^3/mcL AO Workflow SS Lymphocytes/100 WBC (Bld) 12.9 % Invalid Interpretation Code 10.0 - 50.0 % AO Workflow SS MCH (RBC) [Entitic mass] 30.1 pg Invalid Interpretation Code 27.0 - 31.2 pg AO Workflow SS MCHC 34.2 G/dL Invalid Interpretation Code 33.0 - 37.0 G/dL AO Workflow SS MCV (RBC) [Entitic vol] 88.1 fL Invalid Interpretation Code 80.0 - 94.0 fL AO Workflow SS Monocyte, Absolute 0.6 103/mcL Invalid Interpretation Code 0.2 - 1.0 10^3/mcL AO Workflow SS Monocytes/100 WBC (Bld) 6.2 % Invalid Interpretation Code 1.7 - 13.0 % AO Workflow SS Neutrophil, Absolute 7.0 103/mcL Invalid Interpretation Code 2.9 - 6.2 10^3/mcL AO Workflow SS Neutrophils/100 WBC (Bld) 74.9 % Invalid Interpretation Code 37.0 - 80.0 % AO Workflow SS Platelet 239 103/mcL Invalid Interpretation Code 130 - 400 10^3/mcL AO Workflow SS Platelet mean volume (Bld) [Entitic vol] 10.3 fL Invalid Interpretation Code 7.4 - 10.4 fL AO Workflow SS RBC 4.60 106/mcL Invalid Interpretation Code 4.20 - 5.40 10^6/mcL AO Workflow SS WBC 9.3 103/mcL Invalid Interpretation Code 4.6 - 10.8 10^3/mcL AO Workflow SS LABORATORYOrdered By: SYSTEM SYSTEM on 08-02-2021 Cobalamin (Vitamin B12) [Mass/Vol] 380 pg/mL Invalid Interpretation Code 211 - 911 pg/mL AH ADM SS Cortisol [Mass/Vol] 21.5 ug/dL Invalid Interpretation Code 6.5 - 26.0 mcg/dL AH ADM SS GFR 94 ml/min/1.73sqm Invalid Interpretation Code AO Chemistry S GFR Non- 77 ml/min/1.73sqm Invalid Interpretation Code AO Chemistry S Monocyte distribution width Auto (Bld) [Entitic vol] Not Performed 1 *NA* (08/02/21 9:56 AM) Invalid Interpretation Code 0.00 - 20.00 AO Hematology S Comment on above: Result Comment: MDW testing performed only on adult ER patients between the ages of 18-89 years. LABORATORYOrdered By: Sony Robledo on 02-28-2021 Albumin BCP dye [Mass/Vol] 4.1 G/dL Invalid Interpretation Code 3.5 - 5.0 G/dL AO ADM SS Albumin/Globulin [Mass ratio] 1.3 {ratio} Invalid Interpretation Code 1.1 - 2.5 ratio AO ADM SS ALP [Catalytic activity/Vol] 97 U/L Invalid Interpretation Code 40 - 135 U/L AO ADM SS ALT With P-5'-P [Catalytic activity/Vol] 24 U/L Invalid Interpretation Code 14 - 59 U/L AO ADM SS AST With P-5'-P [Catalytic activity/Vol] 16 U/L Invalid Interpretation Code 10 - 40 U/L AO ADM SS Bilirubin [Mass/Vol] 0.4 mg/dL Invalid Interpretation Code 0.2 - 1.0 mg/dL AO ADM SS Calcium [Mass/Vol] 9.7 mg/dL Invalid Interpretation Code 8.4 - 10.2 mg/dL AO ADM SS Chloride [Moles/Vol] 101 mmol/L Invalid Interpretation Code 98 - 107 mmol/L AO ADM SS CO2 [Moles/Vol] 30 mmol/L Invalid Interpretation Code 22 - 29 mmol/L AO ADM SS Creatinine [Mass/Vol] 0.72 mg/dL Invalid Interpretation Code 0.55 - 1.02 mg/dL AO ADM SS Electrolyte Balance 9.0 mEq/L Invalid Interpretation Code AO ADM SS Globulin 3.1 G/dL Invalid Interpretation Code AO ADM SS Glucose [Mass/Vol] 104 mg/dL Invalid Interpretation Code 70 - 105 mg/dL AO ADM SS Potassium [Moles/Vol] 4.7 mmol/L Invalid Interpretation Code 3.5 - 5.1 mmol/L AO ADM SS Protein [Mass/Vol] 7.2 G/dL Invalid Interpretation Code 6.4 - 8.2 G/dL AO ADM SS Sodium [Moles/Vol] 140 mmol/L Invalid Interpretation Code 136 - 145 mmol/L AO ADM SS Urea nitrogen [Mass/Vol] 16 mg/dL Invalid Interpretation Code 7 - 18 mg/dL AO ADM SS Urea nitrogen/Creatinine [Mass ratio] 22 ratio Invalid Interpretation Code 7 - 27 ratio AO ADM SS LABORATORYOrdered By: Paulo Stapleton on 02-28-2021 Basophil, Absolute 0.10 103/mcL Invalid Interpretation Code 0.00 - 0.19 10^3/mcL AO Auto Heme SS Basophils/100 WBC (Bld) 0.6 % Invalid Interpretation Code 0.0 - 2.5 % AO Auto Heme SS Eosinophil, Absolute 0.30 103/mcL Invalid Interpretation Code 0.00 - 0.40 10^3/mcL AO Auto Heme SS Eosinophils/100 WBC (Bld) 2.9 % Invalid Interpretation Code 0.0 - 7.0 % AO Auto Heme SS Erythrocyte distribution width (RBC) [Ratio] 14.1 % Invalid Interpretation Code 11.5 - 14.5 % AO Auto Heme SS Hematocrit (Bld) [Volume fraction] 41.2 % Invalid Interpretation Code 37.0 - 47.0 % AO Auto Heme SS Hemoglobin (Bld) [Mass/Vol] 13.8 G/dL Invalid Interpretation Code 12.0 - 16.0 G/dL AO Auto Heme SS Lymphocyte, Absolute 1.50 103/mcL Invalid Interpretation Code 0.77 - 3.85 10^3/mcL AO Auto Heme SS Lymphocytes/100 WBC (Bld) 13.6 % Invalid Interpretation Code 10.0 - 50.0 % AO Auto Heme SS MCH (RBC) [Entitic mass] 29.7 pg Invalid Interpretation Code 27.0 - 31.2 pg AO Auto Heme SS MCHC (RBC) [Mass/Vol] 33.5 G/dL Invalid Interpretation Code 33.0 - 37.0 G/dL AO Auto Heme SS MCV (RBC) [Entitic vol] 88.8 fL Invalid Interpretation Code 80.0 - 94.0 fL AO Auto Heme SS Monocyte, Absolute 0.70 103/mcL Invalid Interpretation Code 0.15 - 1.00 10^3/mcL AO Auto Heme SS Monocytes/100 WBC (Bld) 6.2 % Invalid Interpretation Code 1.7 - 13.0 % AO Auto Heme SS Neutrophil, Absolute 8.70 103/mcL Invalid Interpretation Code 2.85 - 6.16 10^3/mcL AO Auto Heme SS Neutrophils/100 WBC (Bld) 76.7 % Invalid Interpretation Code 37.0 - 80.0 % AO Auto Heme SS Platelet mean volume (Bld) [Entitic vol] 10.0 fL Invalid Interpretation Code 7.4 - 10.4 fL AO Auto Heme SS Platelets (Bld) [#/Vol] 328 103/mcL Invalid Interpretation Code 130 - 400 10^3/mcL AO Auto Heme SS RBC (Bld) [#/Vol] 4.64 106/mcL Invalid Interpretation Code 4.20 - 5.40 10^6/mcL AO Auto Heme SS WBC (Bld) [#/Vol] 11.40 103/mcL Invalid Interpretation Code 4.60 - 10.80 10^3/mcL AO Auto Heme SS LABORATORYOrdered By: SYSTEM SYSTEM on 02-28-2021 GFR 104 ml/min/1.73sqm Invalid Interpretation Code AO Chemistry S GFR Non- 86 ml/min/1.73sqm Invalid Interpretation Code AO Chemistry S Vital Signs Date Time Vital Sign Value Performing Clinician Facility 11-10-2022 10:08-0400 Body height 154.[address] Neftali Wooten Work Phone: [facility] 11-10-2022 10:08-0400 Body mass index (BMI) [Ratio] 41.7 kg/m2 Dr. Neftali Wooten Work Phone: [facility] 11-10-2022 10:08-0400 Body weight 100.[address] Neftali Wooten Work Phone: [facility] 11-10-2022 10:08-0400 Diastolic blood pressure 80 mm[Hg] Dr. Neftali Wooten Work Phone: [facility] 11-10-2022 10:08-0400 Systolic blood pressure 122 mm[Hg] Dr. Neftali Wooten Work Phone: [facility] 10-09-2022 15:35-0400 Body height 154.94 cm Kaleigh Bryan [facility]; [facility] Work Phone: 10-09-2022 15:35-0400 Body mass index (BMI) [Ratio] 40.53 [facility]; [facility] Work Phone: 10-09-2022 15:35-0400 Body surface area Derived from formula 1.95 m2 [facility]; [facility] Work Phone: 10-09-2022 15:35-0400 Body temperature 97.4 [degF] [facility]; [facility] Work Phone: Comment on above: Method: Thermal Scan 10-09-2022 15:35-0400 Body weight 97.3 kg [facility]; [facility] Work Phone: 10-09-2022 15:35-0400 Diastolic blood pressure 78 mm[Hg] [facility]; [facility] Work Phone: Comment on above: Patient Position: Sitting; Cuff Location : Left Arm; Cuff Size: Standard 10-09-2022 15:35-0400 Heart rate 87 /min [facility]; [facility] Work Phone: Comment on above: Pattern: Regular 10-09-2022 15:35-0400 Respiratory rate 16 /[facility]; [facility] Work Phone: Comment on above: Pattern: Unlabored 10-09-2022 15:35-0400 SaO2% (BldA) [Mass fraction] 98 % [facility]; [facility] Work Phone: Comment on above: Room air 10-09-2022 15:35-0400 Systolic blood pressure 122 mm[Hg] [facility]; [facility] Work Phone: Comment on above: Patient Position: Sitting; Cuff Location : Left Arm; Cuff Size: Standard 05-18-2022 11:[id number] Body height 154.94 [facility]; [facility] Work Phone: 05-18-2022 11:11-0400 Body mass index (BMI) [Ratio] 40.34 kg/m2 [facility]; [facility] Work Phone: 05-18-2022 [id number] Body surface area Derived from formula 1.94 m2 [facility]; [facility] Work Phone: 05-18-2022 11:[id number] Body temperature 97.2 [degF] [facility] Comprehensiv e [facility]; [facility] Work Phone: 05-18-2022 11:[id number] Body weight 96.84 kg [facility]; [facility] Work Phone: 05-18-2022 11:[id number] Diastolic blood pressure 80 mm[Hg] [facility]; [facility] Work Phone: Comment on above: Patient Position: Sitting; Cuff Location : Left Arm; Cuff Size: Standard 05-18-2022 11:[id number] Heart rate 76 /min [facility]; [facility] Work Phone: Comment on above: Pattern: Regular 05-18-2022 11:11-0400 Respiratory rate 16 /min [facility] Com[facility] e [facility]; [facility] Work Phone: Comment on above: Pattern: Unlabored 05-18-2022 11:11-0400 SaO2% (BldA) [Mass fraction] 95 % [facility]; [facility] Work Phone: Comment on above: Room air 05-18-2022 11:11-0400 Systolic blood pressure 130 mm[Hg] [facility]; [facility] Work Phone: Comment on above: Patient Position: Sitting; Cuff Location : Left Arm; Cuff Size: Standard Encounters Encounter Date Encounter Type Care Provider Facility Start: 08-01-2024 ambulatory Betzysylvester Englandon Facilit y:[facility] Start: 07-30-2024 ambulatory Betzy Pallavi Facilit y:[facility] Start: 06-18-2024 End: 06-18-2024 ambulatory BETZY OLIVO [facility] Start: 06-18-2024 End: 06-18-2024 Subsequent hospital visit by physician Ken Stewart[address] [facility] Comment on above: Hyperlipidemia, unsp ecified Start: 04-09-2024 End: 04-09-[address] OCTAVIANO GUY MD Facility:[facility] Start: 04-09-2024 End: 04-09-[address] OCTAVIANO GUY MD [facility] Start: 03-25-2024 End: 03-25-2024 ambulatory Betzy Olivo Facility:[facility] Start: 01-23-2024 End: 01-23-[address] NEFTALI WOOTEN DO Facility:[facility] Start: 01-23-2024 End: 01-23-2024 Patient encounter procedure JOHN MÉNDEZ CHIN [employer]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 Start: 01-29-2023 End: 01-30-2023 ambulatory KUSHAL NAVARRETE [employer]IN [employer] WORKER Facility:[facility] Start: 01-29-2023 End: 01-29-2023 Patient encounter procedure KUSHAL NAVARRETE [employer] WORKER [facility] Start: 12-13-2022 End: 12-13-[address] Neftali Wooten Work Phone: [facility] Work Phone: Start: 12-13-2022 End: 12-13-[address] Neftali Wooten Work Phone: [facility] Work Phone: Start: 11-10-2022 End: 11-10-[address] Neftali Wooten Work Phone: [facility] Work Phone: Start: 10-09-2022 End: 10-09-2022 Office outpatient visit 25 minutes Betzy Pallavi DO Work Phone: [facility] Start: 08-28-2022 End: 08-29-[address] NEFTALI WOOTEN DO Facility:[facility] Start: 08-28-2022 End: 08-28-[address] BETZY OLIVO DO [facility] Start: 05-25-2022 ambulatory Betzy Olivo DO [facility] Start: 05-25-2022 End: 05-25-2022 Office outpatient visit 15 minutes Betzy Pallavi DO Work Phone: [facility] Start: 05-18-2022 End: 05-18-2022 Office outpatient visit 25 minutes Betzy Pallavi DO Work Phone: [facility] Start: 05-18-2022 Review Betzy lin DO Work Phone: [facility] Start: 03-23-2022 End: 03-23-[address] OCTAVIANO GUY MD [facility] Start: 08-26-2021 End: 08-26-2021 Patient encounter procedure [facility] Start: 08-11-2021 End: 08-11-[address] OCTAVIANO GUY MD [facility] Start: 08-02-2021 End: 08-02-[address] NEFTALI WOOTEN DO [facility] Start: 02-28-2021 End: 02-28-[address] OCTAVIANO GUY MD [facility] Procedures Date Procedure Procedure Detail Performing Clinician Start: 12-13-[address] Neftali Wooten Work Phone: Start: 12-13-2022 End: 12-13-2022 SCRN MAMM (CAD)W/PITO BILAT Procedure Note: See Note; NOTES: [facility] Imaging Services [address] [place] [address] SCRN MAMM (CAD)W/PITO BILAT MR#: [id number] Acct: [id number] Name: NEO PAZ BRIAN Rep #: [id number] : 1970 F 52 From: Mac keyes MD PCP: Dr. Betzy Olivo, DO Status: REG CLI Study: SCRN MAMM (CAD)W/PITO BILAT Date of Exam: 11/20 07/11 Exam# [id number] Ordering Dr: Diane Landaverde CNM [id number] MAMMOGRAPHY - BILATERAL SCREENING REASON FOR EXAM: Female, 52 years old. Routine annual screening examination. PERTINENT HISTORY: Non-contributory. TECHNIQUE: Digital bilateral breast pito (3D mammographic acquisition) in the CC and MLO projections. 2-D mediolateral oblique (MLO) and craniocaudad (CC) views of both breasts were obtained. CAD: Full Field Digital Mammography with Computer Added Detection was performed. COMPARISON: Comparison is made with prior study dated November 07, 2018. FINDINGS: Breast Composition: There are scattered areas of fibroglandular density. There are no dominant masses or suspicious calcifications. Stable small benign-appearing bilateral axillary lymph nodes. No other significant abnormalities are identified. There has been no significant change since the prior study. BI/SCRN MAMM (CAD)W/PITO BILAT IMPRESSION: Stable bilateral screening mammogram. Yearly follow-up mammogram recommended. (A) ASSESSMENT CATEGORY: BIRADS Category 2: Benign. A letter regarding these results will be sent to the patient by the facility within 30 days. Approximately 10% of breast cancers are not detected by mammography. A normal mammogram should not delay biopsy of a clinically suspicious abnormality. [id number] Electronically Signed: Mac Richards MD at 13:57 EDT , CC: TETO Landaverde; Dr. Betzy Olivo DO Product Picker: Signed Betzy Olivo DO Work Phone: Start: 02-20-2020 End: 02-20-2020 [facility] Windy Villegas Start: 02-19-1995 End: 02-19-1995 Lymph kim [facility] Timur DIAZ Plan of Treatment Date Care Activity Detail Author Start: 10-20-2024 Influenza vaccination Influenz a Vaccine (Season Ended) [facility] Start: 10-21-2023 COVID-19 Vaccine ( season) COVID-19 Vaccine ( season) [facility] Start: 10-09-2022 Procedure Education Eprescribe d prescriptions (G8553) [facility] Work Phone: Start: 10-09-2022 Provider Instruction s for Treatment [facility] Work Phone: Start: 05-25-2022 Procedure Education Eprescribe d prescriptions (G8553) [facility]; [facility] Work Phone: Start: 05-25-2022 Provider Instruction s for Treatment [facility]; [facility] Work Phone: Start: 05-25-2022 Hemoglobin glycosyla wilfrid a1c HGB A1C (70938) [facility]; [facility] Work Phone: Start: 05-25-2022 Lipid panel LIPID PANEL (91713) [facility] Work Phone: Start: 05-25-2022 Hepatic function panel HEPATIC FUNCTION PANEL (60500) [facility]; [facility] Work Phone: Start: 05-18-2022 Procedure Education Eprescribe d prescriptions (G8553) [facility]; [facility] Work Phone: Start: 05-18-2022 Provider Instruction s for Treatment [facility]; [facility] Work Phone: Start: 05-18-2022 Gluc bld gluc mntr d ev cleared fda spec home use Blood Glucose , Office (81402) [facility]; [facility] Work Phone: Start: 05-18-2022 Hemoglobin glycosyla wilfrid a1c HgA1C , Office (51499) [facility]; [facility] Work Phone: Start: 05-18-2022 Cyanocobalamin vitam in b-12 VITAMIN B-12 (CYANOCOBALAMIN) (60313) [facility]; [facility] Work Phone: Start: 05-18-2022 Sedimentation rate r bc non-automated SED RATE ERYTHROCYTE (37937) [facility]; [facility] Work Phone: Start: 05-18-2022 Antinuclear antibodi es addie ADDIE (ANTINUCLEAR ANTIBODY) (82432) [facility]; [facility] Work Phone: Start: 05-18-2022 C-reactive protein C-REACTIVE PROTEIN (84224) [facility]; [facility] Work Phone: Start: 05-18-2022 25 hydroxy includes fractions if performed CALCIFIDIOL (10455) VIT D 25 [facility]; [facility] Work Phone: Start: 05-18-2022 Assay of thyroid stimulating hormone tsh TSH (48944) [facility]; [facility] Work Phone: Start: 05-18-2022 Urnls dip stick/tabl et reagent auto microscopy URINALYSIS, W/ MICRO (40398) [facility]; [facility] Work Phone: Start: 05-18-2022 Urine albumin quantitative MICROALBUMIN: CREATININE RATIO (36095) AND (62722) [facility]; [facility] Work Phone: Start: 05-18-2022 Comprehensive metabo lic panel METABOLIC PANEL, COMPREHENSIVE (50070) [facility]; [facility] Work Phone: Start: 05-18-2022 Lipid panel LIPID PANEL (01849) [facility] Work Phone: Start: 05-18-2022 Blood count complete auto&auto difrntl wbc CBC W/AUTO DIFF WBC (63471) [facility]; [facility] Work Phone: Start: 02-17-2022 Pneumococcal vaccination Pneum ococcal Vaccine (1 - PCV) [facility] Start: 02-17-2022 Zoster Vaccines (2 of 2) Zoste r Vaccines (2 of 2) [facility] Start: 08-26-2021 [facility] Work Phone: Start: 08-17-2021 MMR Vaccines (1 of 1 - Standard series) MMR Vaccines (1 of 1 - Standard series) [facility] Start: 2012 Screening for malign ant neoplasm of breast Mammogram [facility] Start: 02-17-1994 DTaP/Tdap/Td Vaccine s (1 - Tdap) DTaP/Tdap/Td Vaccines (1 - Tdap) [facility] Start: 02-17-1993 Screening for malign ant neoplasm of cervix [facility] Start: 02-17-1991 Hepatitis B Vaccines (1 of 3 - 19+ 3-dose series) Hepatitis B Vaccines (1 of 3 - 19+ 3-dose series) [facility] Start: 02-17-1990 Diabetes mellitus screening Diabetes Screening [facility] Start: 02-17-1990 [facility]atitis C [facility] Start: 1972 HIV screening HIV Scre[facility] Start: 1972 Lipid panel Lipid Panel [facility] Start: 1972 Screening for malign ant neoplasm of colon [facility] Start: 1972 [facility] IgE Ab [Units/volume] in Serum [facility] Work Phone: Codfish IgE Ab [Units/volume] in Serum [facility] Work Phone: Archer IgE Ab [Units/volume] in Serum [facility] Work Phone: Cow milk IgE Ab [Units/volume] in Serum [facility] Work Phone: End: 06-18-2024 CT for calcium scoring WO contrast and CTA W contrast IV Heart and coronary arteries [facility] Service Area Work Phone: Comment on above: Once for 1 Occurrenc es starting 06/18/2024 until 06/18/2024 Egg white IgE Ab [Units/volume] in Serum [facility] Work Phone: Peanut IgE Ab [Units/volume] in Serum [facility] Work Phone: Scallop [facility] Work Phone: Sesame seed [facility] Work Phone: Shrimp IgE Ab [Units/volume] in Serum [facility] Work Phone: Soybean IgE Ab [Units/volume] in Serum [facility] Work Phone: [place] [facility] Work Phone: Wheat IgE Ab [Units/volume] in Serum [facility] Work Phone: [facility] Work Phone: Immunizations Immunization Date Immunization Notes Care Provider Sandrine layne 10-30-2022 influenza virus vaccine, unspecified formulation [address] Work Phone: 07-20-2021 zoster vaccine, live Kathlee n Pallavi DO Work Phone: [facility] Work Phone: 02-19-2021 zoster vaccine, live Kathlee n Pallavi DO Work Phone: [facility]; [facility] Work Phone: Payers Date Payer Category Payer Unknown 2023 Self-pay [id number] 2023 Managed Care (Private) [employer] Member Subscriber Plan / Payer (Effective 2023-Present) Name: Neo Paz Relation to Subscriber: Self Name: Neo Paz Payer ID: Not on file Type: Not on file Address: [place] [id number] 2022 Unknown [id number] 1970 Unknown [id number] .[id number] 1970 Unknown [id number] .627 1970 Unknown [id number] [id number] .627 1970 Unknown [id number] 2.840.1.022857.3.579.2 .627 1972 Unknown [id number] 2.840.1.421397.3.579.2 .627 1972 Unknown [id number] 2.840.1.547644.3.579.2 .627 1972 Unknown [id number] 2.840.1.330018.3.579.2 .627 1972 Unknown [id number] 2.840.1.353025.3.579.2 .627 1970 Unknown [id number] 2.840.1.768750.3.579.2 .627 1970 Unknown [id number] 2.840.1.409778.3.579.2 .1245 Unknown SELF PAY INSURANCE [id number] Unknown [id number] [id number] .462 Unknown [id number] [id number] .462 Unknown [id number] 2.16840.1.422214.3.579.2 .462 Unknown [id number] [id number] .462 Unknown [id number] [id number] .462 Unknown [id number] [id number] .462 Social History Date Type Detail Facility Start: 01-20-2021 End: 11-10-2022 Tobacco smoking status NHIS Unknown if ever smoked [facility] Start: 1970 Sex Assigned At Female [facility] Alcohol Use: Alcohol Use: [facility] Work Phone: No Drug Use No Drug Use [facility] Work Phone: Start: 1970 Sex assigned at Not on file [facility] Work Phone: Gender identity Not on file [facility] Work Phone: Clinical Notes 02-28-2021 to 01-23-2024 Note Date & Type Note Facility 01-23-2024 Evaluation + Plan note Diagnostic Tests PendingQFT-TB Plus (Client Incubated) 01/23/24 [facility] 11-07-2023 Note [facility] Medical Records Department [address] [place] [address] History Physical Exam 11/07/23 1029 MR#: [id number] Acct: [id number] Name: NEO PAZ BRIAN Rep #: [id number] : 1970 53 From: Jorge Friend DO PCP: Dr. Betzy Olivo, DO Status:[facility] Location: [place] [address] HPI - General General Date of Admission: 11/07/23 Date of Service: 11/07/23 HPI Narrative NEO PAZ, is a 53 F who presents for screening colonoscopy. She is not have any abdominal pain. She denies any chest pain or shortness of breath. She has a past medical history of multiple sclerosis and is currently controlled on medical therapy. [facility] Medical History (Updated 11/05/23 @ 10:50 by Enedina Cabrera) Post-menopausal Wears glasses Alcohol use Diabetes Ambulates with cane Blood disorder Anemia High cholesterol Restless legs Back pain Migraine headache Gastric reflux Non-smoker Asthma Shortness of breath on exertion Leg cramps History of pain when walking History of edema Hx of dislocation of finger Family history of colon cancer in mother Accident on farm Open fracture of distal phalanx of right index finger Injury of nail bed of finger of right hand Contusion of right index finger with damage to nail Crushing injury of right index finger Scoliosis MS (multiple sclerosis) Neuropathy Back problem Allergies Home Medications ???Medication ???Instructions ???Recorded ???Last Taken ???Type baclofen 20 mg tablet 40 mg PO QHS 11/03/20 Unknown History dalfampridine 10 mg 10 mg PO Q12H 11/03/20 Unknown History tablet,extended release,12 hr (Ampyra) ocrelizumab 30 mg/mL intravenous 30 mg IV .[id number] 11/03/20 11/05/23 History solution (Ocrevus) rosuvastatin 10 mg tablet 10 mg PO QHS 11/10/22 Unknown History cholecalciferol (vitamin D3) 1,250 1,250 mcg PO 2XW 10/16/23 Unknown History mcg (50,000 unit) capsule multivitamin 1 tab PO DAILY 10/16/23 Unknown History fexofenadine 180 mg tablet 180 mg PO Q24H 11/05/23 Unknown History (Stephany Allergy) Allergy/AdvReac Type Severity Reaction Status Date / Time metformin AdvReac Diarrhea Verified 11/07/23 10:28 Family History (Updated 10/16/23 @ 10:46 by Opal Martinez) Mother Heart disease Colon cancer, Onset Age: [age]yrs Surgical History (Updated 10/16/23 @ 10:46 by Opal Martinez) Hx of colonoscopy History of endometrial ablation No history of previous surgery Social History (Updated 10/16/23 @ 10:47 by Opal Martinez) adopted: No household members: spouse housing: house Smoking Status: Never smoker alcohol intake: never substance use type: does not use additional social history: Does Take Aspirin As Needed Does Take Ibuprofen As Needed Physical Exam Const alert General Appearance: cooperative Orientation / Consciousness: oriented to person HEENT hearing grossly normal bilaterally Head and Scalp: normal to inspection Face and Sinus: face symmetric Nose: external nose normal Mouth: oral and palatal mucosa normal Eyes conjunctivae normal General Eye: normal appearance of both eyes Neck full ROM General: normal visual inspection Lymph Lymphatic: no lymphadenopathy noted Chest inspection of chest normal and palpation of chest normal Chest: symmetrical chest wall rise Resp normal respiratory effort Effort and Inspection: able to speak in complete sentences Cardio regular rate GI non-distended Percussion: normal to percussion Rectal Exam: deferred Neuro Speech: speech normal Gait (Neuro): normal gait Assessment Plan Assessment/Plan (1) Encounter for screening for malignant neoplasm of colon: PLAN: Plan She was explained alternatives, risk, benefits include not withstanding bleeding, infection, sepsis, perforation, need for emergent urgent . She will have an ASA of 3. 11/07/23 1030 Cosigner Signature (if applicable): CC: Dr. Betzy Olivo, ; Jorge Jimenes, Signed [facility] 11-10-2022 Note [facility] Pap Smear Specimen Adequacy November 10, 2022 11:58am Comment . Satisfactory for evaluation. Endocervical and/or squamous metaplasticcells (endocervical component) are present. Comment on above: Satisfactory for marcia luation. Endocervical and/or squamous metaplasticcells (endocervical component) are present. 03-23-2022 Evaluation + Plan note Diagnostic Tests PendingImmunoglobulin Panel 03/23/22 [facility] 08-11-2021 Evaluation + Plan note Diagnostic Tests PendingImmunoglobulin Panel 08/11/21 [facility] 02-28-2021 Evaluation + Plan note Diagnostic Tests PendingIgA 02/28/21IgG 02/28/21IgM 02/28/21 [facility] Evaluation note No assessment information availa ble [facility] Work Phone: Evaluation note Diagnosis Onset Date Encounter for routine gyneco logical examination noneactive [facility] Work Phone: Evaluation note* Diagnosis Hyperlipidemia, unspecified documented in this encounter [facility] Work Phone: Hospital course Narrative No data available for this section [facility] Hospital Discharge instructions No data available for this section [facility] Instructions* Name Dates Details Patient Instructions Indication:BMI 40.0-44.9, adult Start:18-May-2022 Instruction Type:Provider Instructions for Treatment How to Access Health Informa tion Online using Patient Portal and 3rd Libertarian Apps Indication:BMI 40.0-44.9, adult Start:18-May-2022 Instruction Type:Patient Education [facility] Work Phone: instructions* Name Dates Details Patient Instructions Indication:BMI 40.0-44.9, adult Start:18-May-2022 Instruction Type:Provider Instructions for Treatment How to Access Health Informa tion Online using Patient Portal and 3rd [employer] Apps Indication:BMI 40.0-44.9, adult Start:18-May-2022 Instruction Type:Patient Education [facility] Work Phone: instructions* Name Dates Details Patient Instructions Indication:BMI 40.0-44.9, adult Start:18-May-2022 Instruction Type:Provider Instructions for Treatment How to Access Health Informa tion Online using Patient Portal and 3rd [employer] Apps Indication:BMI 40.0-44.9, adult Start:18-May-2022 Instruction Type:Patient Education [facility]; [facility] Work Phone: instructions* Name Dates Details Patient Instructions Indication:Non-smoker Start:25-May-2022 Instruction Type:Provider Instructions for Treatment How to Access Health Informa tion Online using Patient Portal and 3rd [employer] Apps Indication:Non-smoker Start:25-May-2022 Instruction Type:Patient Education Patient Instructions Indication:BMI 40.0-44.9, adult Start:18-May-2022 Instruction Type:Provider Instructions for Treatment How to Access Health Informa tion Online using Patient Portal and 3rd [employer] Apps Indication:BMI 40.0-44.9, adult Start:18-May-2022 Instruction Type:Patient Education [facility] Work Phone: instructions* Name Dates Details Patient Instructions Indication:Non-smoker Start:25-May-2022 Instruction Type:Provider Instructions for Treatment How to Access Health Informa tion Online using Patient Portal and 3rd Libert[employer] Apps Indication:Non-smoker Start:25-May-2022 Instruction Type:Patient Education Patient Instructions Indication:BMI 40.0-44.9, adult Start:18-May-2022 Instruction Type:Provider Instructions for Treatment How to Access Health Informa tion Online using Patient Portal and 3rd [employer] Apps Indication:BMI 40.0-44.9, adult Start:18-May-2022 Instruction Type:Patient Education [facility]; [facility] Work Phone: instructions* Name Dates Details Patient Instructions Indication:BMI 40.0-44.9, adult Start:09-Oct-2022 Instruction Type:Provider Instructions for Treatment How to Access Health Informa tion Online using Patient Portal and 3rd [employer] Apps Indication:BMI 40.0-44.9, adult Start:09-Oct-2022 Instruction Type:Patient Education Patient Instructions Indication:Non-smoker Start:25-May-2022 Instruction Type:Provider Instructions for Treatment How to Access Health Informa tion Online using Patient Portal and 3rd [employer] Apps Indication:Non-smoker Start:25-May-2022 Instruction Type:Patient Education Patient Instructions Indication:BMI 40.0-44.9, adult Start:18-May-2022 Instruction Type:Provider Instructions for Treatment How to Access Health Informa tion Online using Patient Portal and 3rd [employer] Apps Indication:BMI 40.0-44.9, adult Start:18-May-2022 Instruction Type:Patient Education [facility] Work Phone: instructions* Name Dates Details Patient Instructions Indication:BMI 40.0-44.9, adult Start:09-Oct-2022 Instruction Type:Provider Instructions for Treatment How to Access Health Informa tion Online using Patient Portal and 3rd [employer] Apps Indication:BMI 40.0-44.9, adult Start:09-Oct-2022 Instruction Type:Patient Education Patient Instructions Indication:Non-smoker Start:25-May-2022 Instruction Type:Provider Instructions for Treatment How to Access Health Informa tion Online using Patient Portal and 3rd [employer] Apps Indication:Non-smoker Start:25-May-2022 Instruction Type:Patient Education Patient Instructions Indication:BMI 40.0-44.9, adult Start:18-May-2022 Instruction Type:Provider Instructions for Treatment How to Access Health Informa tion Online using Patient Portal and 3rd [employer] Apps Indication:BMI 40.0-44.9, adult Start:18-May-2022 Instruction Type:Patient Education [facility] Work Phone: Instructions* Name Dates Details Patient Instructions Indication:BMI 40.0-44.9, adult Start:09-Oct-2022 Instruction Type:Provider Instructions for Treatment How to Access Health Informa tion Online using Patient Portal and 3rd [employer] Apps Indication:BMI 40.0-44.9, adult Start:09-Oct-2022 Instruction Type:Patient Education Patient Instructions Indication:Non-smoker Start:25-May-2022 Instruction Type:Provider Instructions for Treatment How to Access Health Informa tion Online using Patient Portal and 3rd [employer] Apps Indication:Non-smoker Start:25-May-2022 Instruction Type:Patient Education Patient Instructions Indication:BMI 40.0-44.9, adult Start:18-May-2022 Instruction Type:Provider Instructions for Treatment How to Access Health Informa tion Online using Patient Portal and 3rd [employer]arian Apps Indication:BMI 40.0-44.9, adult Start:18-May-2022 Instruction Type:Patient Education [facility]; [facility] Work Phone: progress note No data available for this section [facility] Reason for visit Narrative* Imaging (Routine) - Pending Review Specialty Diagnoses / Procedures Referred By Delano kim Referred To Contact Radiology Diagnoses Hyperlipidemia, unspecified Procedures CT cardiac scoring wo IV contrast Betzy Olivo, [address] [facility] [address] [place] [address] Phone: tel: fax: Referral ID Status Reason Start Date Expiration Date Visits Requested Visits Authorized [id number] Pending Review Perform Procedure 4 01/03/2025 1 1 [facility] Work Phone: Advance Directives No Advanced Directives Records Found Advance Directive Response Recorded Date/ Time Living Will No November 03, 2020 11:56am Power of Salesperson Neckties No October 11:56am Name Dates Details Immunization Registry [place] - Effective on 05/18/2022. Expiration date unspecified Effective:18-May-2022 Name Dates Details Immunization Registry [place] - Effective on 05/18/2022. Expiration date unspecified Effective:18-May-2022 Name Dates Details Immunization Registry [place] - Effective on 05/18/2022. Expiration date unspecified Effective:18-May-2022 Name Dates Details Immunization Registry [place] - Effective on 05/18/2022. Expiration date unspecified Effective:18-May-2022 Name Dates Details Immunization Registry [place] - Effective on 05/18/2022. Expiration date unspecified Effective:18-May-2022 Name Dates Details Immunization Registry [place] - Effective on 05/18/2022. Expiration date unspecified Effective:18-May-2022 Name Dates Details Immunization Registry [place] - Effective on 05/18/2022. Expiration date unspecified Effective:18-May-2022 Family History No Family History Records FoundUnknown Family Member Name Dates Details Brother 1 Comments:Thyroid problems Status:Active Father Comments:. Heart pro blems Status:Active Maternal Grandfather Comments:Type 2 diabetes Status:Active Mother Comments:Heart and lung dise ase, Thyroid, Hypertension Status:Active Sister 1 Comments:Thyroid problems, a nd [place] Disease Status:Active Summary Purpose Chief Complaint and Reason for Visit Chief Complaint Annual (WIRELESS ARCHITECT) SCREENING Reason for Visit Encounter for routin e gynecological examination Additional Source Comments Care Team (unrecognized sect ion and content) Team Status: Active Member Role Status Dates Dr. Neftali Wooten DO Family Provider Active Dr. Betzy Olivo DO Primary Care Provider Active Team Status: Inactive Member Role Status Dates Dr. Neftali Wooten DO Referring Provider Active Diane Landaverde CNM Attending Provider Active Team Status: Inactive Member Role Status Dates Diane Landaverde CNM Attending Provider, Referring Pro vider Active Team Status: Inactive Member Role Status Dates Diane Landaverde CNM Attending Provider, Referring Pro vider Active Dr. Betzy Olivo DO Primary Care Provider Active Care Team (unrecognized sect ion and content) Personnel Name: NEFTALI WOOTEN DO Address: Address: [address] [place] [address] Personnel Name: NEFTALI WOOTEN DO Address: Address: [facility] [place] [address]- Care Team Personnel Name: NEFTALI WOOTEN DO Member Role: Primary Care Physician Address: Address: [facility] [place] [address]- Care Team Related Persons Name: SHANE PAZ Address: [address] [place], [place] [address] Goals (unrecognized section and content) Goals may be documented in a n alternate section INFORMATION SOURCE (unrecogn ized section and content) DATE CREATED AUTHOR 05/27/2022 [facility] DATE CREATED AUTHOR AUTHOR'S ORGANIZ ATION 07/20/2023 [facility] DATE CREATED AUTHOR AUTHOR'S ORGANIZ ATION 04/11/2024 [facility] DATE CREATED AUTHOR AUTHOR'S ORGANIZ ATION 06/27/2024 [facility] DATE CREATED AUTHOR AUTHOR'S ORGANIZ ATION 07/19/2024 [facility] FOR RECORDS PERTAINING TO PATIENTS WHO ARE OR HAVE BEEN ENROLLED IN A CHEMICAL DEPENDENCY/SUBSTANCEABUSE PROGRAM, SOME INFORMATION MAY BE OMITTED. This clinical summary was aggregated from multiple sources. Caution should be exercised in using it in the provision of clinical care. This summary normalizes information from multiple sources, and as a consequence, information in this document may materially change the coding, format and clinical context of patient data. In addition, data may be omitted in some cases. CLINICAL DECISIONS SHOULD BE BASED ON THE PRIMARY CLINICAL RECORDS. [facility] [employer] [facility]. provides no warranty or guarantee of the accuracy or completeness of information in this document.
[2024-07-30 07:38] LABS: CREATININE FINGERSTICK < 1.0 mg/dL (0.55-1.02); EGFR FINGERSTICK > 60.0000 mL/min (>60)
== END | disposition home or self-care (01) ==
PROVIDERS: PCP Internal Medicine; Referring Provider Internal Medicine; Visit Provider Internal Medicine
DX: K76.0 Fatty (change of) liver, not elsewhere classified (principal)
CPT/HCPCS: 71260; 76705; 76981; Q9967